=== PATIENT | female | born 1940 | race African-American/Black ===

== ENCOUNTER 2018-04-05 18:16 | Emergency (ER) | payer OTHER ==
--- NOTE | 2018-04-05 18:47 | PDOC ---
Rapid Medical Evaluation Time Seen by Provider: 04/05/18 18:44 Medical Evaluation: Allergies Allergy/AdvReac Type Severity Reaction Status Date / Time No Known Allergies Allergy Verified 04/05/18 18:44 04/05/18 18:45 Pt c/o: sent by diya for elevated K, pt denies discomfort, hx of diabetes, denies kidney disease Pt on brief exam: vss, lcta, no Lower extremity edema pt ordered for: LABS, EKG, UA Pt to proceed to the ED Discharge Disposition - Diagnosis Serum potassium elevated - Referrals Referrals: Huber Anderson MD [Primary Care Provider] - - Patient Instructions - Post Discharge Activity
[2018-04-05 18:48] VITALS: BMI 28.3
[2018-04-05 19:35] LABS: BASO % 1.9 % (0-2.0); EOS % 1.2 % (0-4.5); HEMATOCRIT 32.8 % (32.4-45.2); LYMPH % 11.9 % (8-40); MCH 30.3 pg (25.7-33.7); MCHC 33.5 g/dl (32.0-36.0); MEAN CELL VOLUME 90.5 fl (80-96); MEAN PLT VOLUME 8.8 fl (7.5-11.1); MONO % 11.7 % (3.8-10.2); NEUT % 73.3 % (42.8-82.8); PLATELET COUNT 346 K/MM3 (134-434); RBC 3.63 M/mm3 (3.60-5.2); RDW 18.2 % (11.6-15.6); WHITE BLOOD COUNT 6.1 K/mm3 (4.0-10.0)
[2018-04-05 20:05] LABS: URINE APPEARANCE CLEAR; URINE BILIRUBIN NEGATIVE (<2.0 mg/dL); URINE COLOR STRAW; URINE GLUCOSE (UA) NEGATIVE (NEGATIVE); URINE KETONE NEGATIVE (NEGATIVE); URINE LEUK ESTERASE NEGATIVE (NEGATIVE); URINE NITRITE NEGATIVE (NEGATIVE); URINE PROTEIN NEGATIVE (NEGATIVE); URINE UROBILINOGEN NEGATIVE mg/dL (0.2-1.0)
[2018-04-05 20:31] LABS: PLATELET ESTIMATE ADEQUATE
[2018-04-05] MEDS ORDERED: ACETAMINOPHEN 325 MG TABLET (FP) PO ONE (20:33)
--- NOTE | 2018-04-05 20:33 | PDOC ---
History of Present Illness - General Chief Complaint: Pain Stated Complaint: SENT BY PCP Time Seen by Provider: 04/05/18 18:44 History Source: Patient - History of Present Illness Initial Comments: 04/05/18 21:50 78 year old female Sent by Dr. Keane for elevated potassium levels in the office. Patient reports that she has no symptoms including chest pain, palpitations, muscle pain, cramps, headache, dizziness, weakness, nausea, vomiting, diarrhea, abdominal pain, fevers chills.. Patient reports left knee pain she said it's related to her arthritis. Past History - Past Medical History Allergies/Adverse Reactions: Allergies Allergy/AdvReac Type Severity Reaction Status Date / Time No Known Allergies Allergy Verified 04/05/18 18:44 Home Medications: Ambulatory Orders Ibuprofen 400 mg PO QID #30 tablet 01/05/13 Ascorbic Acid [Vitamin C -] 500 mg PO DAILY 07/18/13 Fluticasone Propionate [Flovent Diskus] 50 mcg IH DAILY PRN 07/18/13 Amlodipine Besylate [Norvasc -] 5 mg PO DAILY #0 tablet 07/19/13 Calcitrol 0.25 mcg PO DAILY #1 07/19/13 Ferrous Sulfate [Feosol] 325 mg PO BID #0 ud 07/19/13 Glipizide 5 mg PO ASDIR #0 tablet 07/19/13 Losartan Potassium [Cozaar] 100 mg PO DAILY #0 tablet 07/19/13 Oxycodone HCl/Acetaminophen [Percocet 5-325 mg Tablet -] 1 tab PO Q4H PRN #20 tablet 07/19/13 Simvastatin [Zocor -] 40 mg PO HS #0 tablet 07/19/13 metFORMIN HCL [Glucophage -] 500 mg PO TID #0 tablet 07/19/13 Anemia: Yes COPD: No Diabetes: Yes HTN: Yes Hypercholesterolemia: Yes - Surgical History Abdominal Surgery: Yes - Immunization History Immunization Up to Date: Yes - Suicide/Smoking/Psychosocial Hx Smoking Status: No Smoking History: Never smoked Number of Cigarettes Smoked Daily: 0 Hx Alcohol Use: No Drug/Substance Use Hx: No Substance Use Type: None Review of Systems - Review of Systems Able to Perform ROS?: Yes Is the patient limited Surinamese proficient: No *Physical Exam - Vital Signs Last Vital Signs Temp Pulse Resp BP Pulse Ox 98.2 F 85 18 165/68 97 04/05/18 18:44 04/05/18 18:44 04/05/18 18:44 04/05/18 18:44 04/05/18 18:44 - Physical Exam General Appearance: Yes: Appropriately Dressed Respiratory/Chest: positive: Lungs Clear, Normal Breath Sounds Cardiovascular: positive: Regular Rhythm, Regular Rate Gastrointestinal/Abdominal: positive: Normal Bowel Sounds, Soft. negative: Tender Extremity: positive: Normal Capillary Refill, Normal Inspection, Normal Range of Motion Integumentary: positive: Normal Color, Dry, Warm Neurologic: positive: Fully Oriented, Alert, Normal Mood/Affect, Normal Response ED Treatment Course - LABORATORY CBC & Chemistry Diagram: 04/05/18 19:28 04/05/18 21:27 - ADDITIONAL ORDERS Additional order review: Laboratory Results 04/05/18 04/05/18 19:55 19:28 Sodium Cancelled Potassium Cancelled Chloride Cancelled Carbon Dioxide Cancelled Anion Gap Cancelled BUN Cancelled Creatinine Cancelled Creat Clearance w eGFR Cancelled Random Glucose Cancelled Calcium Cancelled Total Bilirubin Cancelled AST Cancelled ALT Cancelled Alkaline Phosphatase Cancelled Creatine Kinase Cancelled Creatine Kinase Index Cancelled CK-MB (CK-2) Cancelled Troponin I Cancelled Total Protein Cancelled Albumin Cancelled Urine Color Straw Urine Appearance Clear Urine pH 6.0 Ur Specific [place] 1.005 L Urine Protein Negative Urine Glucose (UA) Negative Urine Ketones Negative Urine Blood Negative Urine Nitrite Negative Urine Bilirubin Negative Urine Urobilinogen Negative Ur Leukocyte Esterase Negative 04/05/18 19:28 RBC 3.63 MCV 90.5 MCHC 33.5 RDW 18.2 H MPV 8.8 Neutrophils % 73.3 Lymphocytes % 11.9 Monocytes % 11.7 H Eosinophils % 1.2 Basophils % 1.9 Medical Decision Making - Medical Decision Making a: hyperkalemia? P: cbc cmp lipase cardiac EKG patient has no complaints. will discuss with Dr. keane prior to disposition. 04/05/18 22:[address] Keane by Dr. Pablo huerta. lipase elevated. patient is asymptomatic. patient to follow up with pcp for repeat levels and workup prn. *DC/Admit/Observation/Transfer Diagnosis at time of Disposition: Elevated lipase - Discharge Dispostion Disposition: HOME - Referrals Referrals: Huber Keane MD [Primary Care Provider] - Call tomorrow - Patient Instructions Printed Discharge Instructions: Potassium Additional Instructions: please follow up with Dr. keane for your elevated Lipase level. you kidney test slightly elevated, it also needs follow up Additional Instructions: * Please call your personal physician to report your Emergency Department visit and to report your progress, if any. * If there is no improvement in symptoms in 2 days call your physician. * Return to the Emergency Department for any worsening symptoms. - Post Discharge Activity
[2018-04-05] MEDS ORDERED: ACETAMINOPHEN 325 MG TABLET (FP) ONE (21:13)
[2018-04-05 22:16] LABS: ALBUMIN 3.6 g/dl (3.4-5.0); ALK PHOS 138 U/L (45-117); ANION GAP 6 MMOL/L (8-16); BILIRUBIN,TOTAL 0.6 mg/dL (0.2-1); BLOOD UREA NITROGEN 33 mg/dL (7-18); CALCIUM 9.8 mg/dL (8.5-10.1); CHLORIDE 107 mmol/L (98-107); CO2 29 mmol/L (21-32); CREATININE 1.9 mg/dL (0.55-1.3); GLUCOSE,RANDOM 104 mg/dL (74-106); LIPASE 1088 U/L (73-393); POTASSIUM 4.8 mmol/L (3.5-5.1); SGOT/AST 22 U/L (15-37); SGPT/ALT 32 U/L (13-61); SODIUM 141 mmol/L (136-145); TOT PROT 7.2 g/dl (6.4-8.2)
[2018-04-05 22:42] VITALS: BP 140/57; PULSE 78; TEMP 99.3
--- NOTE | 2018-04-06 12:33 | EKG ---
Test Reason : Blood Pressure : / mmHG Vent. Rate : 080 BPM Atrial Rate : 080 BPM P-R Int : 182 ms QRS Dur : 068 ms QT Int : 372 ms P-R-T Axes : 047 -04 045 degrees QTc Int : 429 ms NORMAL SINUS RHYTHM CANNOT RULE OUT ANTERIOR INFARCT , AGE UNDETERMINED ABNORMAL ECG Confirmed by MD MINI, CAROLINA ([id number]) on 04/06/2018 12:33:14 PM Referred By: Confirmed By:CAROLINA MORSE MD
== END 2018-04-05 23:11 | disposition home or self-care (01) ==
LOC: JER 18:16
DX: R74.8 Abnormal levels of other serum enzymes (principal); E87.5 Hyperkalemia; I10 Essential (primary) hypertension; E78.00 Pure hypercholesterolemia, unspecified; E11.9 Type 2 diabetes mellitus without complications; Z79.84 Long term (current) use of oral hypoglycemic drugs; D64.9 Anemia, unspecified
CPT/HCPCS: 36415; 80053; 81003; 82550; 83690; 84484; 85025; 93005; 93010; 99283-25

== ENCOUNTER 2020-09-11 14:42 | Emergency (ER) | payer MEDICARE, OTHER ==
[2020-09-11 14:56] VITALS: TEMP 98.5; BMI 25.0
[2020-09-11] MEDS ORDERED: SODIUM CHLORIDE 0.9% 500 ML INFUS.BAG IV ONE (15:47)
[2020-09-11 16:05] LABS: BASO % 1.4 % (0-2.0); EOS % 0.8 % (0-4.5); HEMATOCRIT 31.4 % (32.4-45.2); MCH 29.4 pg (25.7-33.7); MCHC 31.9 g/dl (32.0-36.0); MEAN CELL VOLUME 92.2 fl (80-96); MEAN PLT VOLUME 8.9 fl (7.5-11.1); MONO % 9.2 % (3.8-10.2); NEUT % 76.6 % (42.8-82.8); PLATELET COUNT 394 K/MM3 (134-434); RDW 17.6 % (11.6-15.6); WHITE BLOOD COUNT 6.6 K/mm3 (4.0-10.0)
[2020-09-11 16:07] LABS: VENOUS BASE EXCESS -1.3 mmol/L (-2-2); VENOUS O2 SATURATION 74.7 % (70-80); VENOUS PCO2 49.6 mmHg (38-52); VENOUS PH 7.322 (7.310-7.410)
[2020-09-11 16:25] LABS: ALBUMIN 3.5 g/dl (3.4-5.0); CALCIUM 10.4 mg/dL (8.5-10.1)
[2020-09-11 16:26] LABS: BLOOD UREA NITROGEN 34.6 mg/dL (7-18)
[2020-09-11 16:29] LABS: CREATININE 1.9 mg/dL (0.55-1.3)
[2020-09-11 16:30] LABS: BILIRUBIN,TOTAL 0.7 mg/dL (0.2-1)
[2020-09-11 17:08] LABS: EPI CELLS 7 /uL (0-25.1); HYALINE CASTS 1 /uL (0-3.1); URINE APPEARANCE CLEAR; URINE BACTERIA 84 /uL (0-1359); URINE BILIRUBIN NEGATIVE (NEGATIVE); URINE COLOR YELLOW; URINE GLUCOSE (UA) 3+ (NEGATIVE); URINE KETONE NEGATIVE (NEGATIVE); URINE LEUK ESTERASE 1+ (NEGATIVE); URINE NITRITE NEGATIVE (NEGATIVE); URINE PROTEIN NEGATIVE (NEGATIVE); URINE RBC 5 /uL (0-23.9); URINE UROBILINOGEN 0.2 mg/dL (0.2-1.0); URINE WBC 32 /uL (0-25.8)
[2020-09-11 19:04] LABS: BLOOD UREA NITROGEN 31.4 mg/dL (7-18); CALCIUM 10.7 mg/dL (8.5-10.1)
[2020-09-11 19:08] LABS: CREATININE 1.7 mg/dL (0.55-1.3)
[2020-09-11 19:43] VITALS: BP 122/68; PULSE 86
== END 2020-09-11 19:40 | disposition home or self-care (01) ==
LOC: JER 14:42
DX: R73.9 Hyperglycemia, unspecified (principal)
CPT/HCPCS: 36415; 71045-TC-FY; 80048; 80053; 81003; 82010; 82803; 82962; 85025; 87077; 87086; 93005; 93010; 99285-25

== ENCOUNTER 2020-10-19 04:34 | Day surgery (SDC) | payer MEDICARE, OTHER ==
[2020-10-18 11:24] VITALS: BMI 23.3
[2020-10-19] MEDS ORDERED: LIDOCAINE 1% P/F 10 MG/ML VIAL INF ONE (15:58)
[2020-10-19 17:21] VITALS: BP 137/64; PULSE 77; TEMP 98.6
== END 2020-10-19 18:10 | disposition home or self-care (01) ==
LOC: JASU-SURG 04:34
PROVIDERS: ATTEND Pain Medicine Pain Medicine
PROC: 01HY3MZ Insertion of Neurostimulator Lead into Peripheral Nerve, Percutaneous Approach (ICD-10-PCS; principal; 2020-10-19 16:00)
DX: G89.4 Chronic pain syndrome (principal)
CPT/HCPCS: 64555; C1778

== ENCOUNTER 2021-03-28 18:48 | Inpatient (IN) | payer MEDICARE, OTHER ==
[2021-03-28 21:26] LABS: BASO % 1.4 % (0-2.0); EOS % 0.1 % (0-4.5); HEMATOCRIT 24.9 % (32.4-45.2); HEMOGLOBIN 7.9 GM/dL (10.7-15.3); LYMPH % 8.9 % (8-40); MCH 29.6 pg (25.7-33.7); MCHC 31.9 g/dl (32.0-36.0); MEAN CELL VOLUME 92.7 fl (80-96); MEAN PLT VOLUME 7.2 fl (7.5-11.1); MONO % 14.6 % (3.8-10.2); PLATELET COUNT 475 10^3/uL (134-434); RBC 2.68 M/mm3 (3.60-5.2); RDW 16.5 % (11.6-15.6); RETICULOCYTES 1.14 % (0.5-1.5); WHITE BLOOD COUNT 9.6 K/mm3 (4.0-10.0)
[2021-03-28 21:33] LABS: INR 1.12 (0.83-1.09); PROTHROMBIN TIME (PATIENT) 13.1 SEC (9.7-13.0)
[2021-03-28 21:36] LABS: ACTIVATED PTT 27.7 SECONDS (25.2-36.5)
[2021-03-28 21:50] LABS: CHLORIDE 110 mmol/L (98-107); SODIUM 141 mmol/L (136-145)
[2021-03-28 21:52] LABS: CALCIUM 10.4 mg/dL (8.5-10.1)
[2021-03-28 21:53] LABS: ALBUMIN 3.1 g/dl (3.4-5.0); ANION GAP 7 MMOL/L (8-16); BLOOD UREA NITROGEN 47.2 mg/dL (7-18); CO2 24 mmol/L (21-32); GLUCOSE,RANDOM 201 mg/dL (74-106); MAGNESIUM 2.3 mg/dL (1.8-2.4)
[2021-03-28 21:55] LABS: CREATININE 1.8 mg/dL (0.55-1.3)
[2021-03-28 21:56] LABS: PHOSPHOROUS 3.3 mg/dL (2.5-4.9); SGOT/AST 16 U/L (15-37); SGPT/ALT 17 U/L (13-61); TOTAL IRON BINDING CAPACITY 242 ug/dL (250-450)
[2021-03-28 21:57] LABS: BILIRUBIN,TOTAL 0.4 mg/dL (0.2-1)
[2021-03-28 21:58] LABS: ALK PHOS 107 U/L (45-117); LDH 238 U/L (84-246)
[2021-03-28] MEDS ORDERED: ACETAMINOPHEN 1000 MG/100 ML VIAL IVPB ONE (22:19)
[2021-03-28] MEDS ORDERED: ACETAMINOPHEN INJECTION 100 ML IVPB ONE (23:00)
[2021-03-28] MEDS ORDERED: SODIUM ZIRCONIUM CYCLOSILICATE (LOKELMA) 5 GM PACKET ONE (23:00)
[2021-03-28] MEDS ORDERED: SODIUM ZIRCONIUM CYCLOSILICATE (LOKELMA) 5 GM PACKET PO ONE (23:00)
[2021-03-28 23:18] LABS: EPI CELLS 9 /uL (0-25.1); HYALINE CASTS 0 /uL (0-3.1); URINE APPEARANCE CLEAR; URINE BACTERIA 13 /uL (0-1359); URINE BILIRUBIN NEGATIVE (NEGATIVE); URINE COLOR YELLOW; URINE GLUCOSE (UA) NEGATIVE (NEGATIVE); URINE KETONE NEGATIVE (NEGATIVE); URINE LEUK ESTERASE TRACE (NEGATIVE); URINE NITRITE NEGATIVE (NEGATIVE); URINE PROTEIN TRACE (NEGATIVE); URINE RBC 9 /uL (0-23.9); URINE UROBILINOGEN 0.2 mg/dL (0.2-1.0); URINE WBC 24 /uL (0-25.8)
[2021-03-29] MEDS ORDERED: FUROSEMIDE 40 MG/4 ML INJECTABLE VIAL IVPUSH ONE (02:50)
[2021-03-29] MEDS ORDERED: ACETAMINOPHEN 325 MG TABLET (FP) ONE (02:56)
[2021-03-29] MEDS ORDERED: FUROSEMIDE 40 MG/4 ML INJECTABLE VIAL ONE (02:56)
[2021-03-29] MEDS: ACETAMINOPHEN 325 MG TABLET (FP) PO PRN ×2 (03:12→11:32)
[2021-03-29] MEDS ORDERED: METHOCARBAMOL 500 MG TABLET PO ONE (03:23)
[2021-03-29] MEDS: INSULIN (NOVOLOG) ASPART 100 UNITS/ML 10ML VIAL SQ SCH ×4 (06:05→21:25)
[2021-03-29 09:53] LABS: BASO % 1.3 % (0-2.0); EOS % 0.8 % (0-4.5); HEMATOCRIT 26.5 % (32.4-45.2); HEMOGLOBIN 8.6 GM/dL (10.7-15.3); LYMPH % 11.3 % (8-40); MCH 30.7 pg (25.7-33.7); MCHC 32.5 g/dl (32.0-36.0); MEAN CELL VOLUME 94.4 fl (80-96); MEAN PLT VOLUME 7.8 fl (7.5-11.1); MONO % 14.9 % (3.8-10.2); NEUT % 71.7 % (42.8-82.8); PLATELET COUNT 495 10^3/uL (134-434); RBC 2.81 M/mm3 (3.60-5.2); RDW 16.5 % (11.6-15.6); WHITE BLOOD COUNT 8.5 K/mm3 (4.0-10.0)
[2021-03-29 10:17] LABS: CALCIUM 10.6 mg/dL (8.5-10.1)
[2021-03-29 10:18] LABS: CHOLESTEROL 215 mg/dL (50-200)
[2021-03-29 10:19] LABS: CREATININE 1.9 mg/dL (0.55-1.3); LDL CHOLESTEROL (ONLY SJRH) 121 mg/dL (5-100); PHOSPHOROUS 4.2 mg/dL (2.5-4.9); TRIGLYCERIDES 129 mg/dL (0-150)
[2021-03-29 10:20] LABS: ALBUMIN 2.9 g/dl (3.4-5.0); BLOOD UREA NITROGEN 44.7 mg/dL (7-18); HDL CHOLESTEROL 57 mg/dL (40-60); MAGNESIUM 2.3 mg/dL (1.8-2.4)
[2021-03-29 10:21] LABS: BILIRUBIN,TOTAL 0.5 mg/dL (0.2-1); TOT PROT 6.9 g/dl (6.4-8.2)
[2021-03-29 10:22] LABS: URIC ACID 8.1 mg/dL (2.6-7.2)
[2021-03-29 10:23] LABS: INR 1.14 (0.83-1.09); PROTHROMBIN TIME (PATIENT) 12.8 SEC (9.7-13.0)
[2021-03-29] MEDS: metoPROLOL SUCCINATE 25 MG TAB.SR.24H (FP) PO SCH (11:32)
[2021-03-29] MEDS: LOSARTAN POTASSIUM 50 MG TABLET PO SCH (11:33)
[2021-03-29] MEDS: LIDOCAINE 5% TOPICAL PATCH TP SCH (11:34)
[2021-03-29] MEDS: SODIUM ZIRCONIUM CYCLOSILICATE (LOKELMA) 5 GM PACKET PO SCH (11:34)
[2021-03-29] MEDS ORDERED: SODIUM CHLORIDE 0.45% 1,000 ML IV SCH (14:15)
[2021-03-29] MEDS ORDERED: ACETAMINOPHEN 1000 MG/100 ML VIAL IVPB PRN (16:18)
[2021-03-29] MEDS: morphine SULFATE 4 MG/ML VIAL IVPB PRN (18:58)
[2021-03-29] MEDS: HEPARIN NA (PORCINE) 5,000 UNITS/ML 1ML VIAL SQ SCH (21:24)
[2021-03-29] MEDS: ATORVASTATIN CA 20 MG TABLET (FP) PO SCH (21:25)
[2021-03-29] MEDS ORDERED: LIDOCAINE PATCH REMOVAL MC SCH (22:00)
[2021-03-29] MEDS: INSULIN (LEVEMIR) 100 UNITS/ML UNITS SQ SCH (22:05)
[2021-03-29] MEDS ORDERED: SODIUM ZIRCONIUM CYCLOSILICATE (LOKELMA) 5 GM PACKET PO ONE (22:14)
[2021-03-30] MEDS: ACETAMINOPHEN 325 MG TABLET (FP) PO PRN ×2 (03:50→22:39)
[2021-03-30] MEDS: INSULIN (NOVOLOG) ASPART 100 UNITS/ML 10ML VIAL SQ SCH ×4 (06:17→22:40)
[2021-03-30] MEDS: HEPARIN NA (PORCINE) 5,000 UNITS/ML 1ML VIAL SQ SCH ×3 (06:20→22:40)
[2021-03-30] MEDS: LIDOCAINE 5% TOPICAL PATCH TP SCH (09:19)
[2021-03-30] MEDS: metoPROLOL SUCCINATE 25 MG TAB.SR.24H (FP) PO SCH (09:19)
[2021-03-30] MEDS: SODIUM ZIRCONIUM CYCLOSILICATE (LOKELMA) 5 GM PACKET PO SCH (09:19)
[2021-03-30] MEDS: LOSARTAN POTASSIUM 50 MG TABLET PO SCH (09:19)
[2021-03-30 10:52] LABS: BASO % 0.7 % (0-2.0); EOS % 0.2 % (0-4.5); LYMPH % 5.9 % (8-40); MCH 29.8 pg (25.7-33.7); MEAN CELL VOLUME 92.9 fl (80-96); NEUT % 77.2 % (42.8-82.8); PLATELET COUNT 509 10^3/uL (134-434); RBC 2.69 M/mm3 (3.60-5.2); RDW 16.1 % (11.6-15.6); WHITE BLOOD COUNT 11.3 K/mm3 (4.0-10.0)
[2021-03-30 11:15] LABS: CALCIUM 10.2 mg/dL (8.5-10.1)
[2021-03-30 11:16] LABS: ALBUMIN 2.6 g/dl (3.4-5.0)
[2021-03-30 11:19] LABS: CREATININE 1.7 mg/dL (0.55-1.3)
[2021-03-30 11:20] LABS: BILIRUBIN,TOTAL 0.6 mg/dL (0.2-1)
[2021-03-30 11:21] LABS: TOT PROT 6.3 g/dl (6.4-8.2)
[2021-03-30] MEDS ORDERED: LIDOCAINE 5% TOPICAL PATCH TP ONE (12:15)
[2021-03-30] MEDS: SODIUM CHLORIDE 0.45% 1,000 ML IV SCH (18:11)
[2021-03-30] MEDS: ATORVASTATIN CA 20 MG TABLET (FP) PO SCH (22:39)
[2021-03-30] MEDS: LIDOCAINE PATCH REMOVAL MC SCH (22:41)
[2021-03-30] MEDS: INSULIN (LEVEMIR) 100 UNITS/ML UNITS SQ SCH (22:41)
[2021-03-31] MEDS: SODIUM CHLORIDE 0.45% 1,000 ML IV SCH ×4 (02:45→23:34)
[2021-03-31] MEDS: INSULIN (NOVOLOG) ASPART 100 UNITS/ML 10ML VIAL SQ SCH ×4 (06:31→21:34)
[2021-03-31] MEDS: HEPARIN NA (PORCINE) 5,000 UNITS/ML 1ML VIAL SQ SCH ×3 (06:31→21:26)
[2021-03-31] MEDS: ACETAMINOPHEN 325 MG TABLET (FP) PO PRN ×2 (06:36→17:00)
[2021-03-31] MEDS: LOSARTAN POTASSIUM 50 MG TABLET PO SCH (09:37)
[2021-03-31] MEDS: metoPROLOL SUCCINATE 25 MG TAB.SR.24H (FP) PO SCH (09:37)
[2021-03-31] MEDS: LIDOCAINE 5% TOPICAL PATCH TP SCH (09:37)
[2021-03-31] MEDS: SODIUM ZIRCONIUM CYCLOSILICATE (LOKELMA) 5 GM PACKET PO SCH (09:37)
[2021-03-31] MEDS: morphine SULFATE 4 MG/ML VIAL IVPB PRN (09:40)
[2021-03-31 09:45] LABS: BASO % 0.7 % (0-2.0); EOS % 0.1 % (0-4.5); HEMATOCRIT 24.9 % (32.4-45.2); HEMOGLOBIN 8.2 GM/dL (10.7-15.3); LYMPH % 7.4 % (8-40); MCH 30.5 pg (25.7-33.7); MCHC 32.8 g/dl (32.0-36.0); MEAN PLT VOLUME 7.8 fl (7.5-11.1); MONO % 17.2 % (3.8-10.2); NEUT % 74.6 % (42.8-82.8); PLATELET COUNT 513 10^3/uL (134-434); RBC 2.68 M/mm3 (3.60-5.2); RDW 16.2 % (11.6-15.6); WHITE BLOOD COUNT 10.9 K/mm3 (4.0-10.0)
[2021-03-31 10:21] LABS: CALCIUM 9.7 mg/dL (8.5-10.1)
[2021-03-31 10:22] LABS: ALBUMIN 2.2 g/dl (3.4-5.0); BLOOD UREA NITROGEN 32.8 mg/dL (7-18)
[2021-03-31 10:24] LABS: CREATININE 1.6 mg/dL (0.55-1.3)
[2021-03-31 10:26] LABS: BILIRUBIN,TOTAL 0.7 mg/dL (0.2-1)
[2021-03-31] MEDS: ATORVASTATIN CA 20 MG TABLET (FP) PO SCH (21:26)
[2021-03-31] MEDS: INSULIN (LEVEMIR) 100 UNITS/ML UNITS SQ SCH (21:28)
[2021-03-31] MEDS: LIDOCAINE PATCH REMOVAL MC SCH (22:27)
[2021-04-01] MEDS: ACETAMINOPHEN 325 MG TABLET (FP) PO PRN (03:04)
[2021-04-01 04:44] LABS: URINE APPEARANCE CLEAR; URINE BILIRUBIN NEGATIVE (NEGATIVE); URINE COLOR YELLOW; URINE GLUCOSE (UA) NEGATIVE (NEGATIVE); URINE KETONE NEGATIVE (NEGATIVE); URINE LEUK ESTERASE NEGATIVE (NEGATIVE); URINE NITRITE NEGATIVE (NEGATIVE); URINE PROTEIN NEGATIVE (NEGATIVE); URINE UROBILINOGEN 0.2 mg/dL (0.2-1.0)
[2021-04-01] MEDS: HEPARIN NA (PORCINE) 5,000 UNITS/ML 1ML VIAL SQ SCH ×3 (06:26→22:20)
[2021-04-01] MEDS: INSULIN (NOVOLOG) ASPART 100 UNITS/ML 10ML VIAL SQ SCH ×4 (06:26→22:22)
[2021-04-01 09:02] LABS: BASO % 0.8 % (0-2.0); EOS % 0.4 % (0-4.5); HEMATOCRIT 23.3 % (32.4-45.2); HEMOGLOBIN 7.4 GM/dL (10.7-15.3); LYMPH % 7.8 % (8-40); MCH 30.1 pg (25.7-33.7); MCHC 31.9 g/dl (32.0-36.0); MEAN CELL VOLUME 94.3 fl (80-96); MEAN PLT VOLUME 8.2 fl (7.5-11.1); MONO % 17.6 % (3.8-10.2); NEUT % 73.4 % (42.8-82.8); PLATELET COUNT 437 10^3/uL (134-434); RBC 2.47 M/mm3 (3.60-5.2); RDW 16.6 % (11.6-15.6); WHITE BLOOD COUNT 9.4 K/mm3 (4.0-10.0)
[2021-04-01 09:14] LABS: BLOOD UREA NITROGEN 31.9 mg/dL (7-18)
[2021-04-01 09:15] LABS: CALCIUM 9.6 mg/dL (8.5-10.1)
[2021-04-01 09:17] LABS: ALBUMIN 1.9 g/dl (3.4-5.0); MAGNESIUM 2.1 mg/dL (1.8-2.4)
[2021-04-01 09:20] LABS: BILIRUBIN,TOTAL 0.5 mg/dL (0.2-1); CREATININE 1.6 mg/dL (0.55-1.3); TOT PROT 5.5 g/dl (6.4-8.2)
[2021-04-01] MEDS ORDERED: DEXTROSE 5%-WATER - 50 ML IVPB ONE (10:34)
[2021-04-01] MEDS ORDERED: cefTRIAXone SODIUM 1 GM VIAL ONE (10:34)
[2021-04-01] MEDS: metoPROLOL SUCCINATE 25 MG TAB.SR.24H (FP) PO SCH (10:36)
[2021-04-01] MEDS: LOSARTAN POTASSIUM 50 MG TABLET PO SCH (10:36)
[2021-04-01] MEDS: CEFTRIAXONE 1 GM in DEXTROSE 5%-WATER - 50 ML IVPB SCH (10:37)
[2021-04-01] MEDS: LIDOCAINE 5% TOPICAL PATCH TP SCH (10:37)
[2021-04-01] MEDS: morphine SULFATE 4 MG/ML VIAL IVPB PRN (14:53)
[2021-04-01] MEDS: INSULIN (LEVEMIR) 100 UNITS/ML UNITS SQ SCH (22:19)
[2021-04-01] MEDS: ATORVASTATIN CA 20 MG TABLET (FP) PO SCH (22:19)
[2021-04-01] MEDS: SODIUM CHLORIDE 0.45% 1,000 ML IV SCH (22:19)
[2021-04-01] MEDS: LIDOCAINE PATCH REMOVAL MC SCH (22:20)
[2021-04-02] MEDS: SODIUM CHLORIDE 0.45% 1,000 ML IV SCH ×2 (03:24→18:09)
[2021-04-02] MEDS: HEPARIN NA (PORCINE) 5,000 UNITS/ML 1ML VIAL SQ SCH ×3 (06:44→21:06)
[2021-04-02] MEDS: INSULIN (NOVOLOG) ASPART 100 UNITS/ML 10ML VIAL SQ SCH ×4 (06:46→21:05)
[2021-04-02 08:52] LABS: BASO % 0.9 % (0-2.0); EOS % 0.8 % (0-4.5); HEMATOCRIT 25.5 % (32.4-45.2); HEMOGLOBIN 8.1 GM/dL (10.7-15.3); LYMPH % 7.7 % (8-40); MCH 30.1 pg (25.7-33.7); MCHC 31.9 g/dl (32.0-36.0); MEAN CELL VOLUME 94.3 fl (80-96); MEAN PLT VOLUME 8.4 fl (7.5-11.1); MONO % 14.6 % (3.8-10.2); PLATELET COUNT 506 10^3/uL (134-434); RDW 16.4 % (11.6-15.6); WHITE BLOOD COUNT 9.2 K/mm3 (4.0-10.0)
[2021-04-02] MEDS ORDERED: DEXTROSE 5%-WATER - 50 ML IVPB ONE ×3 (09:40→17:13)
[2021-04-02] MEDS ORDERED: cefTRIAXone SODIUM 1 GM VIAL ONE (09:40)
[2021-04-02] MEDS ORDERED: morphine SULFATE 4 MG/ML VIAL IM PRN (11:46)
[2021-04-02] MEDS: metoPROLOL SUCCINATE 25 MG TAB.SR.24H (FP) PO SCH (11:49)
[2021-04-02] MEDS: LIDOCAINE 5% TOPICAL PATCH TP SCH (11:49)
[2021-04-02] MEDS: CEFTRIAXONE 1 GM in DEXTROSE 5%-WATER - 50 ML IVPB SCH (11:50)
[2021-04-02] MEDS ORDERED: CEFEPIME HCL 1 GM VIAL (RESTRICTED TO ID) ONE ×2 (13:15→17:13)
[2021-04-02] MEDS: CEFEPIME 1 GM in DEXTROSE 5%-WATER - 1 GM/50 ML IVPB IVPB SCH ×2 (13:26→18:09)
[2021-04-02 19:02] LABS: BILIRUBIN,TOTAL 0.4 mg/dL (0.2-1); TOT PROT 5.9 g/dl (6.4-8.2)
[2021-04-02] MEDS: INSULIN (LEVEMIR) 100 UNITS/ML UNITS SQ SCH (21:06)
[2021-04-02] MEDS: ACETAMINOPHEN 325 MG TABLET (FP) PO PRN (21:07)
[2021-04-02] MEDS: ATORVASTATIN CA 20 MG TABLET (FP) PO SCH (21:09)
[2021-04-02] MEDS: LIDOCAINE PATCH REMOVAL MC SCH (21:09)
[2021-04-03] MEDS ORDERED: DEXTROSE 5%-WATER - 50 ML IVPB ONE ×3 (01:51→17:00)
[2021-04-03] MEDS ORDERED: CEFEPIME HCL 1 GM VIAL (RESTRICTED TO ID) ONE ×3 (01:51→17:00)
[2021-04-03] MEDS: CEFEPIME 1 GM in DEXTROSE 5%-WATER - 1 GM/50 ML IVPB IVPB SCH ×3 (02:00→17:07)
[2021-04-03] MEDS: HEPARIN NA (PORCINE) 5,000 UNITS/ML 1ML VIAL SQ SCH ×3 (05:41→21:52)
[2021-04-03] MEDS: INSULIN (NOVOLOG) ASPART 100 UNITS/ML 10ML VIAL SQ SCH ×4 (06:13→21:52)
[2021-04-03 09:35] LABS: BASO % 0.8 % (0-2.0); EOS % 0.9 % (0-4.5); HEMOGLOBIN 7.6 GM/dL (10.7-15.3); LYMPH % 6.5 % (8-40); MCH 29.9 pg (25.7-33.7); MCHC 31.7 g/dl (32.0-36.0); MEAN CELL VOLUME 94.5 fl (80-96); MEAN PLT VOLUME 8.6 fl (7.5-11.1); NEUT % 76.8 % (42.8-82.8); PLATELET COUNT 503 10^3/uL (134-434); RBC 2.54 M/mm3 (3.60-5.2); RDW 16.7 % (11.6-15.6)
[2021-04-03] MEDS: LIDOCAINE 5% TOPICAL PATCH TP SCH (10:35)
[2021-04-03] MEDS: metoPROLOL SUCCINATE 25 MG TAB.SR.24H (FP) PO SCH (10:38)
[2021-04-03] MEDS ORDERED: GABAPENTIN 100 MG CAPSULE PO SCH (11:29)
[2021-04-03] MEDS ORDERED: morphine SULFATE 4 MG/ML VIAL IVPB PRN (12:48)
[2021-04-03 12:58] LABS: ALBUMIN 1.9 g/dl (3.4-5.0); BILIRUBIN,TOTAL 0.4 mg/dL (0.2-1); CREATININE 1.4 mg/dL (0.55-1.3); TOT PROT 5.8 g/dl (6.4-8.2)
[2021-04-03] MEDS: ACETAMINOPHEN 325 MG TABLET (FP) PO SCH ×2 (13:28→17:08)
[2021-04-03] MEDS: GABAPENTIN 300 MG CAPSULE PO SCH ×2 (13:28→21:52)
[2021-04-03] MEDS ORDERED: SODIUM CHLORIDE NASAL SPRAY 44 ML BOTTLE NS PRN (16:31)
[2021-04-03] MEDS: FUROSEMIDE 40 MG TABLET (FP) PO SCH (17:08)
[2021-04-03] MEDS ORDERED: metoPROLOL SUCCINATE 25 MG TAB.SR.24H (FP) PO ONE (17:17)
[2021-04-03] MEDS ORDERED: SODIUM ZIRCONIUM CYCLOSILICATE (LOKELMA) 5 GM PACKET PO ONE (21:33)
[2021-04-03] MEDS: LIDOCAINE PATCH REMOVAL MC SCH (21:52)
[2021-04-03] MEDS: INSULIN (LEVEMIR) 100 UNITS/ML UNITS SQ SCH (21:52)
[2021-04-03] MEDS: ATORVASTATIN CA 20 MG TABLET (FP) PO SCH (21:52)
[2021-04-04] MEDS: ACETAMINOPHEN 325 MG TABLET (FP) PO SCH ×4 (00:16→18:03)
[2021-04-04] MEDS ORDERED: CEFEPIME HCL 1 GM VIAL (RESTRICTED TO ID) ONE ×4 (01:34→17:50)
[2021-04-04] MEDS ORDERED: DEXTROSE 5%-WATER - 50 ML IVPB ONE ×4 (01:34→17:50)
[2021-04-04] MEDS: CEFEPIME 1 GM in DEXTROSE 5%-WATER - 1 GM/50 ML IVPB IVPB SCH ×3 (01:45→17:23)
[2021-04-04] MEDS: HEPARIN NA (PORCINE) 5,000 UNITS/ML 1ML VIAL SQ SCH ×3 (06:04→21:22)
[2021-04-04] MEDS: GABAPENTIN 300 MG CAPSULE PO SCH ×3 (06:04→21:22)
[2021-04-04] MEDS: INSULIN (NOVOLOG) ASPART 100 UNITS/ML 10ML VIAL SQ SCH ×4 (06:04→21:23)
[2021-04-04 09:43] LABS: BASO % 0.9 % (0-2.0); EOS % 1.3 % (0-4.5); HEMATOCRIT 21.7 % (32.4-45.2); LYMPH % 9.5 % (8-40); MCH 30.1 pg (25.7-33.7); MCHC 32.4 g/dl (32.0-36.0); MEAN PLT VOLUME 8.2 fl (7.5-11.1); MONO % 18.5 % (3.8-10.2); NEUT % 69.8 % (42.8-82.8); PLATELET COUNT 483 10^3/uL (134-434); RBC 2.34 M/mm3 (3.60-5.2); RDW 16.3 % (11.6-15.6); WHITE BLOOD COUNT 10.4 K/mm3 (4.0-10.0)
[2021-04-04] MEDS ORDERED: traMADol HCL 50 MG TABLET PO PRN ×2 (09:55)
[2021-04-04] MEDS: FUROSEMIDE 40 MG TABLET (FP) PO SCH (10:22)
[2021-04-04] MEDS: metoPROLOL SUCCINATE 25 MG TAB.SR.24H (FP) PO SCH (10:23)
[2021-04-04] MEDS: LIDOCAINE 5% TOPICAL PATCH TP SCH (10:24)
[2021-04-04 10:50] LABS: ALBUMIN 1.7 g/dl (3.4-5.0); BILIRUBIN,TOTAL 0.4 mg/dL (0.2-1); CALCIUM 9.9 mg/dL (8.5-10.1); CREATININE 1.7 mg/dL (0.55-1.3); TOT PROT 5.5 g/dl (6.4-8.2)
[2021-04-04] MEDS ORDERED: POLYETHYLENE GLYCOL (HEALTHYLAX) 3350 17 GM PACKET PO ONE (14:04)
[2021-04-04] MEDS ORDERED: SENNOSIDES 8.6MG TABLET (FP) PO PRN (14:04)
[2021-04-04] MEDS ORDERED: ONDANSETRON 4 MG/2 ML VIAL IVPUSH ONE (15:33)
[2021-04-04] MEDS: DOCUSATE SODIUM 100 MG CAPSULE (FP) PO SCH (21:22)
[2021-04-04] MEDS: ATORVASTATIN CA 20 MG TABLET (FP) PO SCH (21:22)
[2021-04-04] MEDS: INSULIN (LEVEMIR) 100 UNITS/ML UNITS SQ SCH (21:23)
[2021-04-04] MEDS: LIDOCAINE PATCH REMOVAL MC SCH (21:44)
[2021-04-05] MEDS: ACETAMINOPHEN 325 MG TABLET (FP) PO SCH ×4 (00:24→18:19)
[2021-04-05] MEDS ORDERED: DEXTROSE 5%-WATER - 50 ML IVPB ONE ×2 (01:04→16:50)
[2021-04-05] MEDS ORDERED: CEFEPIME HCL 1 GM VIAL (RESTRICTED TO ID) ONE ×2 (01:04→16:50)
[2021-04-05] MEDS: CEFEPIME 1 GM in DEXTROSE 5%-WATER - 1 GM/50 ML IVPB IVPB SCH ×3 (01:19→17:00)
[2021-04-05] MEDS: HEPARIN NA (PORCINE) 5,000 UNITS/ML 1ML VIAL SQ SCH ×3 (06:08→21:29)
[2021-04-05] MEDS: GABAPENTIN 300 MG CAPSULE PO SCH ×3 (06:09→21:29)
[2021-04-05] MEDS: INSULIN (NOVOLOG) ASPART 100 UNITS/ML 10ML VIAL SQ SCH ×4 (06:10→21:32)
[2021-04-05 09:10] LABS: BASO % 0.3 % (0-2.0); HEMATOCRIT 21.4 % (32.4-45.2); LYMPH % 4.2 % (8-40); MCHC 31.2 g/dl (32.0-36.0); MEAN PLT VOLUME 7.9 fl (7.5-11.1); MONO % 9.3 % (3.8-10.2); NEUT % 86.2 % (42.8-82.8); PLATELET COUNT 477 10^3/uL (134-434); RDW 16.7 % (11.6-15.6); WHITE BLOOD COUNT 11.7 K/mm3 (4.0-10.0)
[2021-04-05 09:16] LABS: HEMOGLOBIN 6.7 GM/dL (10.7-15.3)
[2021-04-05] MEDS ORDERED: BISACODYL 10 MG SUPP.RECT PR ONE (10:14)
[2021-04-05] MEDS ORDERED: ONDANSETRON 4 MG/2 ML VIAL IVPUSH PRN (10:19)
[2021-04-05] MEDS: POLYETHYLENE GLYCOL (HEALTHYLAX) 3350 17 GM PACKET PO SCH (10:30)
[2021-04-05] MEDS: PANTOPRAZOLE 40 MG TABLET PO SCH (10:31)
[2021-04-05] MEDS: LIDOCAINE 5% TOPICAL PATCH TP SCH (10:31)
[2021-04-05] MEDS: metoPROLOL SUCCINATE 25 MG TAB.SR.24H (FP) PO SCH (10:31)
[2021-04-05] MEDS: FUROSEMIDE 40 MG TABLET (FP) PO SCH (10:31)
[2021-04-05 12:15] LABS: ALBUMIN 1.7 g/dl (3.4-5.0); BILIRUBIN,TOTAL 0.2 mg/dL (0.2-1); CALCIUM 9.9 mg/dL (8.5-10.1); CREATININE 2.1 mg/dL (0.55-1.3); MAGNESIUM 2.3 mg/dL (1.8-2.4); TOT PROT 5.6 g/dl (6.4-8.2)
[2021-04-05 13:01] VITALS: BMI 22.1
[2021-04-05 20:08] LABS: BLOOD UREA NITROGEN 30.1 mg/dL (7-18); CALCIUM 9.8 mg/dL (8.5-10.1); CREATININE 1.5 mg/dL (0.55-1.3); MAGNESIUM 1.9 mg/dL (1.8-2.4)
[2021-04-05] MEDS: DOCUSATE SODIUM 100 MG CAPSULE (FP) PO SCH (21:28)
[2021-04-05] MEDS: INSULIN (LEVEMIR) 100 UNITS/ML UNITS SQ SCH (21:29)
[2021-04-05] MEDS: ATORVASTATIN CA 20 MG TABLET (FP) PO SCH (21:29)
[2021-04-05] MEDS: LIDOCAINE PATCH REMOVAL MC SCH (21:42)
[2021-04-06] MEDS ORDERED: CEFEPIME HCL 1 GM VIAL (RESTRICTED TO ID) ONE ×3 (01:20→17:50)
[2021-04-06] MEDS ORDERED: DEXTROSE 5%-WATER - 50 ML IVPB ONE ×3 (01:21→17:51)
[2021-04-06] MEDS: CEFEPIME 1 GM in DEXTROSE 5%-WATER - 1 GM/50 ML IVPB IVPB SCH ×3 (01:34→18:24)
[2021-04-06] MEDS: ACETAMINOPHEN 325 MG TABLET (FP) PO SCH ×5 (01:34→23:39)
[2021-04-06] MEDS: HEPARIN NA (PORCINE) 5,000 UNITS/ML 1ML VIAL SQ SCH ×4 (06:04→22:18)
[2021-04-06] MEDS: GABAPENTIN 300 MG CAPSULE PO SCH ×4 (06:05→22:18)
[2021-04-06] MEDS: INSULIN (NOVOLOG) ASPART 100 UNITS/ML 10ML VIAL SQ SCH ×4 (06:06→21:26)
[2021-04-06 08:47] LABS: BASO % 0.4 % (0-2.0); EOS % 1.2 % (0-4.5); HEMOGLOBIN 9.2 GM/dL (10.7-15.3); LYMPH % 5.8 % (8-40); MCH 29.6 pg (25.7-33.7); MCHC 31.6 g/dl (32.0-36.0); MEAN CELL VOLUME 93.8 fl (80-96); MEAN PLT VOLUME 7.7 fl (7.5-11.1); MONO % 7.9 % (3.8-10.2); NEUT % 84.7 % (42.8-82.8); PLATELET COUNT 549 10^3/uL (134-434); RBC 3.09 M/mm3 (3.60-5.2); RDW 16.1 % (11.6-15.6); WHITE BLOOD COUNT 14.1 K/mm3 (4.0-10.0)
[2021-04-06 09:12] LABS: CALCIUM 10.3 mg/dL (8.5-10.1)
[2021-04-06 09:13] LABS: ALBUMIN 1.9 g/dl (3.4-5.0); BLOOD UREA NITROGEN 55.4 mg/dL (7-18); MAGNESIUM 2.1 mg/dL (1.8-2.4)
[2021-04-06 09:16] LABS: CREATININE 2.1 mg/dL (0.55-1.3)
[2021-04-06 09:17] LABS: TOT PROT 6.2 g/dl (6.4-8.2)
[2021-04-06 09:18] LABS: BILIRUBIN,TOTAL 0.3 mg/dL (0.2-1)
[2021-04-06] MEDS ORDERED: EPOETIN ALFA-EPBX 40,000 UNIT/ML VIAL SQ ONE (10:00)
[2021-04-06] MEDS: metoPROLOL SUCCINATE 25 MG TAB.SR.24H (FP) PO SCH (10:30)
[2021-04-06] MEDS: FUROSEMIDE 40 MG TABLET (FP) PO SCH (10:30)
[2021-04-06] MEDS: POLYETHYLENE GLYCOL (HEALTHYLAX) 3350 17 GM PACKET PO SCH (10:30)
[2021-04-06] MEDS: PANTOPRAZOLE 40 MG TABLET PO SCH (10:30)
[2021-04-06] MEDS: LIDOCAINE 5% TOPICAL PATCH TP SCH (10:31)
[2021-04-06] MEDS: SODIUM CHLORIDE 1,000 ML IV SCH (11:05)
[2021-04-06] MEDS: LIDOCAINE PATCH REMOVAL MC SCH (21:26)
[2021-04-06] MEDS: ATORVASTATIN CA 20 MG TABLET (FP) PO SCH (21:26)
[2021-04-06] MEDS: INSULIN (LEVEMIR) 100 UNITS/ML UNITS SQ SCH (21:26)
[2021-04-06] MEDS: DOCUSATE SODIUM 100 MG CAPSULE (FP) PO SCH ×2 (21:26→22:18)
[2021-04-07] MEDS ORDERED: DEXTROSE 5%-WATER - 50 ML IVPB ONE ×3 (01:30→17:47)
[2021-04-07] MEDS ORDERED: CEFEPIME HCL 1 GM VIAL (RESTRICTED TO ID) ONE ×3 (01:30→17:47)
[2021-04-07] MEDS: CEFEPIME 1 GM in DEXTROSE 5%-WATER - 1 GM/50 ML IVPB IVPB SCH ×3 (01:39→18:08)
[2021-04-07] MEDS: SODIUM CHLORIDE 1,000 ML IV SCH ×3 (03:22→18:10)
[2021-04-07] MEDS: ACETAMINOPHEN 325 MG TABLET (FP) PO SCH ×3 (06:00→18:05)
[2021-04-07] MEDS: GABAPENTIN 300 MG CAPSULE PO SCH ×3 (06:00→22:19)
[2021-04-07] MEDS: HEPARIN NA (PORCINE) 5,000 UNITS/ML 1ML VIAL SQ SCH ×3 (06:00→22:19)
[2021-04-07] MEDS: INSULIN (NOVOLOG) ASPART 100 UNITS/ML 10ML VIAL SQ SCH ×4 (06:14→22:20)
[2021-04-07 09:23] LABS: BLOOD UREA NITROGEN 48.4 mg/dL (7-18)
[2021-04-07 09:26] LABS: CREATININE 1.7 mg/dL (0.55-1.3)
[2021-04-07 09:39] LABS: CALCIUM 8.4 mg/dL (8.5-10.1)
[2021-04-07] MEDS: POLYETHYLENE GLYCOL (HEALTHYLAX) 3350 17 GM PACKET PO SCH (10:33)
[2021-04-07] MEDS: PANTOPRAZOLE 40 MG TABLET PO SCH (10:33)
[2021-04-07] MEDS: metoPROLOL SUCCINATE 25 MG TAB.SR.24H (FP) PO SCH (10:33)
[2021-04-07] MEDS: LIDOCAINE 5% TOPICAL PATCH TP SCH (10:33)
[2021-04-07 11:07] LABS: HEMATOCRIT 24.6 % (32.4-45.2); HEMOGLOBIN 7.8 GM/dL (10.7-15.3); MCH 29.4 pg (25.7-33.7); MCHC 31.6 g/dl (32.0-36.0); MEAN CELL VOLUME 93.2 fl (80-96); PLATELET COUNT 467 10^3/uL (134-434); RBC 2.64 M/mm3 (3.60-5.2); RDW 16.3 % (11.6-15.6)
[2021-04-07 11:38] LABS: MAGNESIUM 1.8 mg/dL (1.8-2.4)
[2021-04-07 11:42] LABS: BILIRUBIN,TOTAL 0.2 mg/dL (0.2-1); TOT PROT 4.8 g/dl (6.4-8.2)
[2021-04-07 11:43] LABS: ALBUMIN 1.4 g/dl (3.4-5.0)
[2021-04-07 12:27] LABS: ANISOCYTOSIS 1+; MACROCYTOSIS 0; PLATELET ESTIMATE NORMAL
[2021-04-07] MEDS: DOCUSATE SODIUM 100 MG CAPSULE (FP) PO SCH (22:19)
[2021-04-07] MEDS: ATORVASTATIN CA 20 MG TABLET (FP) PO SCH (22:19)
[2021-04-07] MEDS: INSULIN (LEVEMIR) 100 UNITS/ML UNITS SQ SCH (22:20)
[2021-04-07] MEDS: LIDOCAINE PATCH REMOVAL MC SCH (22:20)
[2021-04-08] MEDS: ACETAMINOPHEN 325 MG TABLET (FP) PO SCH ×4 (00:50→17:48)
[2021-04-08] MEDS ORDERED: DEXTROSE 5%-WATER - 50 ML IVPB ONE ×2 (01:27→09:23)
[2021-04-08] MEDS ORDERED: CEFEPIME HCL 1 GM VIAL (RESTRICTED TO ID) ONE ×2 (01:27→09:22)
[2021-04-08] MEDS: CEFEPIME 1 GM in DEXTROSE 5%-WATER - 1 GM/50 ML IVPB IVPB SCH ×2 (01:37→10:06)
[2021-04-08] MEDS: HEPARIN NA (PORCINE) 5,000 UNITS/ML 1ML VIAL SQ SCH ×3 (06:10→21:20)
[2021-04-08] MEDS: INSULIN (NOVOLOG) ASPART 100 UNITS/ML 10ML VIAL SQ SCH ×3 (06:11→17:58)
[2021-04-08] MEDS: GABAPENTIN 300 MG CAPSULE PO SCH ×3 (06:11→21:19)
[2021-04-08] MEDS: LIDOCAINE 5% TOPICAL PATCH TP SCH (10:05)
[2021-04-08] MEDS: PANTOPRAZOLE 40 MG TABLET PO SCH (10:08)
[2021-04-08] MEDS: metoPROLOL SUCCINATE 25 MG TAB.SR.24H (FP) PO SCH (10:08)
[2021-04-08 12:39] LABS: HEMATOCRIT 30.1 % (32.4-45.2); HEMOGLOBIN 9.4 GM/dL (10.7-15.3); MCH 29.9 pg (25.7-33.7); MCHC 31.1 g/dl (32.0-36.0); MEAN PLT VOLUME 8.6 fl (7.5-11.1); PLATELET COUNT 583 10^3/uL (134-434); RBC 3.14 M/mm3 (3.60-5.2); RDW 16.7 % (11.6-15.6); WHITE BLOOD COUNT 16.1 K/mm3 (4.0-10.0)
[2021-04-08] MEDS ORDERED: LORazepam 0.5 MG TABLET PO PRN (12:40)
[2021-04-08 13:02] LABS: CALCIUM 9.6 mg/dL (8.5-10.1)
[2021-04-08 13:03] LABS: BLOOD UREA NITROGEN 51.6 mg/dL (7-18); MAGNESIUM 2.1 mg/dL (1.8-2.4)
[2021-04-08 13:05] LABS: CREATININE 2.1 mg/dL (0.55-1.3)
[2021-04-08 13:06] LABS: BILIRUBIN,TOTAL 0.2 mg/dL (0.2-1); TOT PROT 5.8 g/dl (6.4-8.2)
[2021-04-08 13:10] LABS: ALBUMIN 1.8 g/dl (3.4-5.0)
[2021-04-08 14:23] LABS: ANISOCYTOSIS 1+; MACROCYTOSIS 1+; PLATELET ESTIMATE NORMAL; TARGET CELLS 1+
[2021-04-08] MEDS: SODIUM CHLORIDE 1,000 ML IV SCH (14:28)
[2021-04-08] MEDS: METHYL SALICYLATE/MENTHOL OINT 30 GM TUBE TP SCH ×2 (15:00→21:22)
[2021-04-08] MEDS ORDERED: INSULIN (LEVEMIR) 100 UNITS/ML UNITS SQ SCH (17:40)
[2021-04-08] MEDS ORDERED: INSULIN (NOVOLOG) ASPART 100 UNITS/ML 10ML VIAL SQ SCH (17:41)
[2021-04-08] MEDS: POLYETHYLENE GLYCOL (HEALTHYLAX) 3350 17 GM PACKET PO SCH (17:47)
[2021-04-08] MEDS: SODIUM ZIRCONIUM CYCLOSILICATE (LOKELMA) 5 GM PACKET PO SCH (17:54)
[2021-04-08] MEDS: DOCUSATE SODIUM 100 MG CAPSULE (FP) PO SCH (21:18)
[2021-04-08] MEDS: ATORVASTATIN CA 20 MG TABLET (FP) PO SCH (21:19)
[2021-04-08] MEDS: LIDOCAINE PATCH REMOVAL MC SCH (21:19)
[2021-04-08] MEDS: INSULIN SLIDING SCALE (NOVOLOG) 1 VIAL SQ SCH (21:28)
[2021-04-09] MEDS: ACETAMINOPHEN 325 MG TABLET (FP) PO SCH ×3 (01:02→14:24)
[2021-04-09] MEDS: SODIUM CHLORIDE 1,000 ML IV SCH ×2 (01:33→11:13)
[2021-04-09] MEDS: GABAPENTIN 300 MG CAPSULE PO SCH ×2 (06:10→14:26)
[2021-04-09] MEDS: HEPARIN NA (PORCINE) 5,000 UNITS/ML 1ML VIAL SQ SCH ×2 (06:11→14:26)
[2021-04-09] MEDS: INSULIN SLIDING SCALE (NOVOLOG) 1 VIAL SQ SCH ×2 (06:12→11:45)
[2021-04-09] MEDS: LIDOCAINE 5% TOPICAL PATCH TP SCH (09:23)
[2021-04-09] MEDS: METHYL SALICYLATE/MENTHOL OINT 30 GM TUBE TP SCH (09:24)
[2021-04-09] MEDS: POLYETHYLENE GLYCOL (HEALTHYLAX) 3350 17 GM PACKET PO SCH (10:12)
[2021-04-09] MEDS: metoPROLOL SUCCINATE 25 MG TAB.SR.24H (FP) PO SCH (10:16)
[2021-04-09] MEDS: PANTOPRAZOLE 40 MG TABLET PO SCH (10:18)
[2021-04-09 11:52] VITALS: BP 141/72; PULSE 80; TEMP 98.7
[2021-04-09] MEDS: SODIUM ZIRCONIUM CYCLOSILICATE (LOKELMA) 5 GM PACKET PO SCH (12:11)
[2021-04-09 13:08] LABS: HEMATOCRIT 30.2 % (32.4-45.2); HEMOGLOBIN 9.4 GM/dL (10.7-15.3); MCH 29.4 pg (25.7-33.7); MCHC 31.2 g/dl (32.0-36.0); MEAN CELL VOLUME 94.5 fl (80-96); MEAN PLT VOLUME 7.2 fl (7.5-11.1); PLATELET COUNT 554 10^3/uL (134-434); RDW 16.6 % (11.6-15.6); WHITE BLOOD COUNT 14.3 K/mm3 (4.0-10.0)
[2021-04-09 13:33] LABS: CALCIUM 9.6 mg/dL (8.5-10.1)
[2021-04-09 13:34] LABS: ALBUMIN 1.9 g/dl (3.4-5.0); BLOOD UREA NITROGEN 48.3 mg/dL (7-18); MAGNESIUM 2.1 mg/dL (1.8-2.4)
[2021-04-09 13:37] LABS: CREATININE 1.6 mg/dL (0.55-1.3)
[2021-04-09 13:38] LABS: BILIRUBIN,TOTAL 0.3 mg/dL (0.2-1); TOT PROT 5.8 g/dl (6.4-8.2)
[2021-04-09 14:03] LABS: ANISOCYTOSIS 1+; MACROCYTOSIS 1+; PLATELET ESTIMATE INCREASED
[2021-04-09] MEDS ORDERED: POLYETHYLENE GLYCOL (HEALTHYLAX) 3350 17 GM PACKET PO SCH (22:00)
== END 2021-04-09 16:29 | disposition home health service (06) | DRG 181 ==
LOC: JER 18:48 → JERBED 03-29 00:29 → UNDOADMOB 03-29 00:29 → INTOOBSV 03-29 00:29 → J5S 03-29 03:23 → JERBED 03-29 03:23 → J5S 03-29 08:21 → OBSVTOIN 04-01 09:35
PROVIDERS: ADMIT Internal Medicine; ATTEND Nurse Practitioner Acute Care
PROC: 30233N1 Transfusion of Nonautologous Red Blood Cells into Peripheral Vein, Percutaneous Approach (ICD-10-PCS; principal; 2021-04-05)
DX: D49.1 Neoplasm of unspecified behavior of respiratory system (principal); R65.10 Systemic inflammatory response syndrome (SIRS) of non-infectious origin without acute organ dysfunction; N17.9 Acute kidney failure, unspecified; R91.8 Other nonspecific abnormal finding of lung field; D64.9 Anemia, unspecified; M47.22 Other spondylosis with radiculopathy, cervical region; R50.9 Fever, unspecified; N18.9 Chronic kidney disease, unspecified; E11.9 Type 2 diabetes mellitus without complications; I13.10 Hypertensive heart and chronic kidney disease without heart failure, with stage 1 through stage 4 chronic kidney disease, or unspecified chronic kidney disease; E87.5 Hyperkalemia; E83.52 Hypercalcemia; N28.89 Other specified disorders of kidney and ureter; D46.9 Myelodysplastic syndrome, unspecified; E86.0 Dehydration; E78.5 Hyperlipidemia, unspecified
CPT/HCPCS: 36415; 36430; 70450-TC; 71045-TC-FY; 71046-TC-FY; 72125-TC; 72192-TC; 73700-TC-RT; 74018-TC-FY; 80048; 80053; 80061; 81003; 82272; 82310; 82550; 82728; 82962; 83036; 83540; 83550; 83615; 83735; 83970; 84100; 84443; 84484; 84550; 85025; 85045; 85610; 85651; 85730; 86038; 86140; 86431; 86850; 86900; 86901; 86922; 87040; 87086; 93005; 93010; 93306-TC; 97116-GP; 97161-GP; 99285-25; C9803; G0378; J0131; J1644; P9058; Q5106; U0003; U0005

== ENCOUNTER 2021-09-24 06:21 | Day surgery (SDC) | payer MEDICARE, OTHER ==
[2021-09-24] MEDS ORDERED: IRON SUCROSE INJECTION 100 MG in SODIUM CHLORIDE 100 ML IVPB ONE (10:00)
[2021-09-24 13:03] LABS: BASO % 0.5 % (0-2.0); EOS % 0.4 % (0-4.5); HEMATOCRIT 21.1 % (32.4-45.2); LYMPH % 10.2 % (8-40); MCH 27.6 pg (25.7-33.7); MCHC 32.1 g/dl (32.0-36.0); MEAN CELL VOLUME 86.1 fl (80-96); MEAN PLT VOLUME 6.9 fl (7.5-11.1); MONO % 8.9 % (3.8-10.2); PLATELET COUNT 511 10^3/uL (134-434); RBC 2.45 M/mm3 (3.60-5.2); RDW 22.8 % (11.6-15.6); WHITE BLOOD COUNT 9.6 K/mm3 (4.0-10.0)
[2021-09-24 13:11] LABS: HEMOGLOBIN 6.8 GM/dL (10.7-15.3)
[2021-09-24 14:52] LABS: ANISOCYTOSIS 3+; TARGET CELLS 1+
[2021-09-24 17:38] VITALS: BP 147/63; PULSE 90; TEMP 99
== END 2021-09-24 14:20 | disposition home or self-care (01) ==
LOC: JONCNONCHE 06:21
PROVIDERS: ATTEND Internal Medicine Hematology & Oncology
PROC: 3E033GC Introduction of Other Therapeutic Substance into Peripheral Vein, Percutaneous Approach (ICD-10-PCS; principal; 2021-09-24)
DX: D50.9 Iron deficiency anemia, unspecified (principal)
CPT/HCPCS: 36415; 36430; 85025; 86850; 86900; 86901; 86922; 96365; J1756; P9058

== ENCOUNTER → 2021-09-26 | Day surgery (SDC) | payer MEDICARE, OTHER ==
[~2021-09-26] MED LIST: FUROSEMIDE 40 MG TABLET (FP) PO ONE
[2021-09-26 10:18] LABS: ALBUMIN 2.7 g/dl (3.4-5.0); CALCIUM 10.3 mg/dL (8.5-10.1)
[2021-09-26 10:19] LABS: BLOOD UREA NITROGEN 55.8 mg/dL (7-18); MAGNESIUM 2.5 mg/dL (1.8-2.4)
[2021-09-26 10:21] LABS: CREATININE 1.6 mg/dL (0.55-1.3)
[2021-09-26 10:23] LABS: TOT PROT 7.2 g/dl (6.4-8.2)
[2021-09-26 10:24] LABS: BILIRUBIN,TOTAL 0.4 mg/dL (0.2-1)
[2021-09-26 16:59] VITALS: BP 116/60; PULSE 88; TEMP 98.7
[2021-09-26 20:03] LABS: BASO % 1.2 % (0-2.0); EOS % 1.2 % (0-4.5); HEMATOCRIT 31.6 % (32.4-45.2); HEMOGLOBIN 10.4 GM/dL (10.7-15.3); LYMPH % 14.4 % (8-40); MCHC 32.8 g/dl (32.0-36.0); MEAN CELL VOLUME 85.5 fl (80-96); MEAN PLT VOLUME 7.2 fl (7.5-11.1); MONO % 11.8 % (3.8-10.2); NEUT % 71.4 % (42.8-82.8); PLATELET COUNT 538 10^3/uL (134-434); RDW 18.4 % (11.6-15.6); WHITE BLOOD COUNT 10.7 K/mm3 (4.0-10.0)
== END | disposition home or self-care (01) ==
LOC: JONCBLOOD 07:07
PROVIDERS: ATTEND Internal Medicine Hematology & Oncology
PROC: 30233H1 Transfusion of Nonautologous Whole Blood into Peripheral Vein, Percutaneous Approach (ICD-10-PCS; principal; 2021-09-26)
DX: D46.4 Refractory anemia, unspecified (principal); D46.9 Myelodysplastic syndrome, unspecified; E11.9 Type 2 diabetes mellitus without complications; I10 Essential (primary) hypertension
CPT/HCPCS: 36415; 36430; 80053; 83735; 85025; 86850; 86900; 86901; 86922; P9058

== ENCOUNTER 2021-10-01 07:44 | Day surgery (SDC) | payer MEDICARE, OTHER ==
[2021-10-01] MEDS ORDERED: IRON SUCROSE INJECTION 100 MG in SODIUM CHLORIDE 100 ML IVPB ONE (10:00)
[2021-10-01 13:46] LABS: BASO % 0.8 % (0-2.0); EOS % 0.4 % (0-4.5); HEMATOCRIT 30.5 % (32.4-45.2); HEMOGLOBIN 10.1 GM/dL (10.7-15.3); LYMPH % 10.7 % (8-40); MCH 28.6 pg (25.7-33.7); MCHC 33.1 g/dl (32.0-36.0); MEAN CELL VOLUME 86.4 fl (80-96); MEAN PLT VOLUME 7.3 fl (7.5-11.1); MONO % 12.4 % (3.8-10.2); NEUT % 75.7 % (42.8-82.8); PLATELET COUNT 446 10^3/uL (134-434); RBC 3.53 M/mm3 (3.60-5.2); RDW 18.5 % (11.6-15.6); WHITE BLOOD COUNT 10.2 K/mm3 (4.0-10.0)
[2021-10-01 17:47] VITALS: TEMP 97.8
[2021-10-01 18:45] VITALS: BP 148/70; PULSE 88
== END 2021-10-01 14:00 | disposition home or self-care (01) ==
LOC: JONCCHEMO 07:44
PROVIDERS: ATTEND Internal Medicine Hematology & Oncology
PROC: 3E033GC Introduction of Other Therapeutic Substance into Peripheral Vein, Percutaneous Approach (ICD-10-PCS; principal; 2021-10-01)
DX: D50.9 Iron deficiency anemia, unspecified (principal)
CPT/HCPCS: 36415; 85025; 96365; J1756

== ENCOUNTER 2021-10-09 06:37 | Day surgery (SDC) | payer MEDICARE, OTHER ==
[2021-10-09] MEDS ORDERED: IRON SUCROSE INJECTION 100 MG in SODIUM CHLORIDE 100 ML IVPB ONE (10:00)
[2021-10-09 12:50] LABS: BASO % 1.4 % (0-2.0); HEMATOCRIT 27.6 % (32.4-45.2); LYMPH % 10.5 % (8-40); MCH 28.4 pg (25.7-33.7); MCHC 32.8 g/dl (32.0-36.0); MEAN CELL VOLUME 86.6 fl (80-96); MEAN PLT VOLUME 7.5 fl (7.5-11.1); MONO % 11.1 % (3.8-10.2); PLATELET COUNT 486 10^3/uL (134-434); RBC 3.18 M/mm3 (3.60-5.2); RDW 18.5 % (11.6-15.6); WHITE BLOOD COUNT 9.3 K/mm3 (4.0-10.0)
[2021-10-09 13:07] LABS: MAGNESIUM 2.2 mg/dL (1.8-2.4)
[2021-10-09 13:08] LABS: ALBUMIN 2.4 g/dl (3.4-5.0); BLOOD UREA NITROGEN 61.7 mg/dL (7-18)
[2021-10-09 13:09] LABS: URIC ACID 7.1 mg/dL (2.6-7.2)
[2021-10-09 13:10] LABS: CREATININE 1.5 mg/dL (0.55-1.3)
[2021-10-09 13:11] LABS: BILIRUBIN,DIRECT 0.1 mg/dL (0.0-0.2)
[2021-10-09 13:12] LABS: TOT PROT 6.3 g/dl (6.4-8.2)
[2021-10-09 13:13] LABS: BILIRUBIN,TOTAL 0.3 mg/dL (0.2-1)
[2021-10-09 16:37] VITALS: TEMP 99
[2021-10-09 16:39] VITALS: BP 135/69; PULSE 74
== END 2021-10-09 13:30 | disposition home or self-care (01) ==
LOC: JONCCHEMO 06:37
PROVIDERS: ATTEND Internal Medicine Hematology & Oncology
PROC: 3E033GC Introduction of Other Therapeutic Substance into Peripheral Vein, Percutaneous Approach (ICD-10-PCS; principal; 2021-10-09)
DX: D50.9 Iron deficiency anemia, unspecified (principal)
CPT/HCPCS: 36415; 80053; 80076; 83615; 83735; 84550; 85025; 96365; J1756

== ENCOUNTER 2021-10-15 06:53 | Day surgery (SDC) | payer MEDICARE, OTHER ==
[2021-10-15] MEDS ORDERED: IRON SUCROSE INJECTION 100 MG in SODIUM CHLORIDE 100 ML IVPB ONE (10:00)
[2021-10-15 13:47] LABS: BASO % 1.1 % (0-2.0); EOS % 1.3 % (0-4.5); HEMATOCRIT 28.2 % (32.4-45.2); MCH 27.7 pg (25.7-33.7); MCHC 31.9 g/dl (32.0-36.0); MEAN CELL VOLUME 86.8 fl (80-96); MEAN PLT VOLUME 7.5 fl (7.5-11.1); MONO % 10.9 % (3.8-10.2); NEUT % 73.7 % (42.8-82.8); PLATELET COUNT 490 10^3/uL (134-434); RBC 3.24 M/mm3 (3.60-5.2); WHITE BLOOD COUNT 8.6 K/mm3 (4.0-10.0)
[2021-10-15 18:08] VITALS: TEMP 98.1
[2021-10-15 18:09] VITALS: BP 131/91; PULSE 83
== END 2021-10-15 14:25 | disposition home or self-care (01) ==
LOC: JONCNONCHE 06:53
PROVIDERS: ATTEND Internal Medicine Hematology & Oncology
PROC: 3E033GC Introduction of Other Therapeutic Substance into Peripheral Vein, Percutaneous Approach (ICD-10-PCS; principal; 2021-10-15)
DX: D50.9 Iron deficiency anemia, unspecified (principal); D46.9 Myelodysplastic syndrome, unspecified
CPT/HCPCS: 36415; 85025; 96365; J1756

== ENCOUNTER 2021-10-23 10:07 | Day surgery (SDC) | payer MEDICARE, OTHER ==
[2021-10-21 15:53] VITALS: BMI 25.0
[2021-10-23] MEDS ORDERED: PROPOFOL 20 ML ONE ×2 (10:34)
[2021-10-23 11:46] VITALS: TEMP 97.7
[2021-10-23 12:57] VITALS: BP 132/63; PULSE 81
== END 2021-10-23 12:40 | disposition home or self-care (01) ==
LOC: FASU-ENDO 10:07
PROVIDERS: ATTEND Internal Medicine Gastroenterology
PROC: 0DB68ZZ Excision of Stomach, Via Natural or Artificial Opening Endoscopic (ICD-10-PCS; 2021-10-23)
PROC: 0DB48ZX Excision of Esophagogastric Junction, Via Natural or Artificial Opening Endoscopic, Diagnostic (ICD-10-PCS; 2021-10-23)
PROC: 0DB98ZZ Excision of Duodenum, Via Natural or Artificial Opening Endoscopic (ICD-10-PCS; principal; 2021-10-23 11:15)
DX: D50.9 Iron deficiency anemia, unspecified (principal); K29.50 Unspecified chronic gastritis without bleeding; K20.90 Esophagitis, unspecified without bleeding
CPT/HCPCS: 82962; 88305-TC; 88342-TC

== ENCOUNTER 2021-11-15 12:32 | Inpatient (IN) | payer MEDICARE, OTHER ==
[2021-11-15 12:48] VITALS: BMI 25.7
[2021-11-15 14:47] LABS: BASO % 0.8 % (0-2.0); HEMATOCRIT 25.8 % (32.4-45.2); HEMOGLOBIN 8.4 GM/dL (10.7-15.3); LYMPH % 13.5 % (8-40); MCH 28.7 pg (25.7-33.7); MCHC 32.4 g/dl (32.0-36.0); MEAN CELL VOLUME 88.6 fl (80-96); MEAN PLT VOLUME 7.4 fl (7.5-11.1); MONO % 8.7 % (3.8-10.2); PLATELET COUNT 384 10^3/uL (134-434); RBC 2.91 M/mm3 (3.60-5.2); RDW 20.3 % (11.6-15.6); WHITE BLOOD COUNT 7.4 K/mm3 (4.0-10.0)
[2021-11-15 14:49] LABS: EPI CELLS >36 /uL (0-25.1); HYALINE CASTS 1 /uL (0-3.1); URINE APPEARANCE CLEAR; URINE BACTERIA 95 /uL (0-1359); URINE BILIRUBIN NEGATIVE (NEGATIVE); URINE COLOR YELLOW; URINE GLUCOSE (UA) NEGATIVE (NEGATIVE); URINE KETONE NEGATIVE (NEGATIVE); URINE LEUK ESTERASE 1+ (NEGATIVE); URINE NITRITE NEGATIVE (NEGATIVE); URINE PROTEIN NEGATIVE (NEGATIVE); URINE RBC 6 /uL (0-23.9); URINE UROBILINOGEN 0.2 mg/dL (0.2-1.0); URINE WBC 50 /uL (0-25.8)
[2021-11-15 14:51] LABS: ACTIVATED PTT 28.6 SECONDS (25.2-36.5); ALBUMIN 2.9 g/dl (3.4-5.0); BLOOD UREA NITROGEN 55.3 mg/dL (7-18); CALCIUM 10.2 mg/dL (8.5-10.1); INR 0.97 (0.83-1.09); MAGNESIUM 2.7 mg/dL (1.8-2.4); PROTHROMBIN TIME (PATIENT) 11.1 SEC (9.7-13.0)
[2021-11-15 14:54] LABS: CREATININE 1.5 mg/dL (0.55-1.3)
[2021-11-15 14:56] LABS: BILIRUBIN,TOTAL 0.2 mg/dL (0.2-1); TOT PROT 6.5 g/dl (6.4-8.2)
[2021-11-15 15:00] LABS: N-TERMINAL BNP 321.1 pg/ml (5-450)
[2021-11-15] MEDS ORDERED: CALCIUM CITRATE PO SCH (22:00)
[2021-11-15] MEDS ORDERED: VITAMIN D3 PO SCH (22:00)
[2021-11-15] MEDS ORDERED: [UNRECOGNIZED DRUG - OTHER] PO SCH (22:00)
[2021-11-15] MEDS ORDERED: ATORVASTATIN CA 20 MG TABLET (FP) ONE (22:52)
[2021-11-15] MEDS ORDERED: INSULIN (NOVOLOG) ASPART 100 UNITS/ML 10ML VIAL ONE (22:53)
[2021-11-15] MEDS: INSULIN SLIDING SCALE (NOVOLOG) 1 VIAL SQ SCH (23:00)
[2021-11-15] MEDS: ATORVASTATIN CA 20 MG TABLET (FP) PO SCH (23:00)
[2021-11-16] MEDS: INSULIN SLIDING SCALE (NOVOLOG) 1 VIAL SQ SCH ×4 (06:41→21:59)
[2021-11-16 10:12] LABS: EOS % 1.9 % (0-4.5); HEMATOCRIT 24.9 % (32.4-45.2); HEMOGLOBIN 8.1 GM/dL (10.7-15.3); LYMPH % 18.2 % (8-40); MCH 29.2 pg (25.7-33.7); MCHC 32.5 g/dl (32.0-36.0); MEAN CELL VOLUME 89.9 fl (80-96); MEAN PLT VOLUME 7.3 fl (7.5-11.1); MONO % 9.5 % (3.8-10.2); NEUT % 68.4 % (42.8-82.8); PLATELET COUNT 349 10^3/uL (134-434); RBC 2.77 M/mm3 (3.60-5.2); RDW 20.3 % (11.6-15.6); WHITE BLOOD COUNT 5.8 K/mm3 (4.0-10.0)
[2021-11-16 10:28] LABS: ALBUMIN 2.6 g/dl (3.4-5.0); BLOOD UREA NITROGEN 49.1 mg/dL (7-18)
[2021-11-16 10:31] LABS: CREATININE 1.4 mg/dL (0.55-1.3)
[2021-11-16 10:33] LABS: BILIRUBIN,TOTAL 0.7 mg/dL (0.2-1); TOT PROT 6.1 g/dl (6.4-8.2)
[2021-11-16] MEDS: ASCORBIC ACID 500 MG TABLET (FP) PO SCH (11:37)
[2021-11-16] MEDS: ALLOPURINOL 100 MG TABLET (FP) PO SCH (11:37)
[2021-11-16] MEDS: ESCITALOPRAM OXALATE 10 MG TABLET PO SCH (11:37)
[2021-11-16] MEDS: SODIUM ZIRCONIUM CYCLOSILICATE (LOKELMA) 5 GM PACKET PO SCH (13:16)
[2021-11-16] MEDS: PANTOPRAZOLE 40 MG TABLET PO SCH (15:41)
[2021-11-16] MEDS ORDERED: amLODIPine BESYLATE 5 MG TABLET (FP) PO ONE (19:04)
[2021-11-16] MEDS: ATORVASTATIN CA 20 MG TABLET (FP) PO SCH (21:59)
[2021-11-17] MEDS: INSULIN SLIDING SCALE (NOVOLOG) 1 VIAL SQ SCH ×4 (06:35→21:45)
[2021-11-17 09:46] LABS: BASO % 1.1 % (0-2.0); EOS % 1.4 % (0-4.5); HEMATOCRIT 25.7 % (32.4-45.2); HEMOGLOBIN 8.4 GM/dL (10.7-15.3); LYMPH % 12.9 % (8-40); MCH 29.3 pg (25.7-33.7); MCHC 32.7 g/dl (32.0-36.0); MEAN CELL VOLUME 89.6 fl (80-96); MEAN PLT VOLUME 7.2 fl (7.5-11.1); MONO % 8.5 % (3.8-10.2); NEUT % 76.1 % (42.8-82.8); PLATELET COUNT 364 10^3/uL (134-434); RBC 2.87 M/mm3 (3.60-5.2); RDW 19.9 % (11.6-15.6)
[2021-11-17 09:57] LABS: INR 1.01 (0.83-1.09); PROTHROMBIN TIME (PATIENT) 11.6 SEC (9.7-13.0)
[2021-11-17 10:09] LABS: ALBUMIN 2.7 g/dl (3.4-5.0); BLOOD UREA NITROGEN 37.9 mg/dL (7-18); CALCIUM 10.1 mg/dL (8.5-10.1); MAGNESIUM 2.1 mg/dL (1.8-2.4)
[2021-11-17 10:12] LABS: CREATININE 1.3 mg/dL (0.55-1.3)
[2021-11-17 10:14] LABS: BILIRUBIN,TOTAL 0.6 mg/dL (0.2-1); TOT PROT 6.3 g/dl (6.4-8.2)
[2021-11-17] MEDS: ASCORBIC ACID 500 MG TABLET (FP) PO SCH (10:19)
[2021-11-17] MEDS: PANTOPRAZOLE 40 MG TABLET PO SCH (10:19)
[2021-11-17] MEDS: ESCITALOPRAM OXALATE 10 MG TABLET PO SCH (10:19)
[2021-11-17] MEDS: BENZOCAINE/MENTHOL (CHLORASEPTIC ) LOZENGE MM PRN ×2 (10:25→19:40)
[2021-11-17] MEDS: SODIUM ZIRCONIUM CYCLOSILICATE (LOKELMA) 5 GM PACKET PO SCH (12:42)
[2021-11-17] MEDS: ACETAMINOPHEN 325 MG TABLET (FP) PO PRN (14:05)
[2021-11-17] MEDS: DOCUSATE SODIUM 100 MG CAPSULE (FP) PO SCH ×2 (14:06→21:41)
[2021-11-17] MEDS: POLYETHYLENE GLYCOL (HEALTHYLAX) 3350 17 GM PACKET PO SCH (14:07)
[2021-11-17] MEDS: ATORVASTATIN CA 20 MG TABLET (FP) PO SCH (21:42)
[2021-11-17] MEDS: GABAPENTIN 300 MG CAPSULE PO SCH (21:42)
[2021-11-18] MEDS: DOCUSATE SODIUM 100 MG CAPSULE (FP) PO SCH (06:02)
[2021-11-18] MEDS: GABAPENTIN 300 MG CAPSULE PO SCH ×3 (06:02→21:26)
[2021-11-18] MEDS: BENZOCAINE/MENTHOL (CHLORASEPTIC ) LOZENGE MM PRN (06:06)
[2021-11-18] MEDS: INSULIN SLIDING SCALE (NOVOLOG) 1 VIAL SQ SCH ×4 (06:08→21:26)
[2021-11-18] MEDS ORDERED: METOPROLOL TARTRATE 25 MG TABLET (FP) PO SCH (10:00)
[2021-11-18] MEDS: ESCITALOPRAM OXALATE 10 MG TABLET PO SCH (10:08)
[2021-11-18] MEDS: POLYETHYLENE GLYCOL (HEALTHYLAX) 3350 17 GM PACKET PO SCH (10:08)
[2021-11-18] MEDS: PANTOPRAZOLE 40 MG TABLET PO SCH (10:10)
[2021-11-18] MEDS: ASCORBIC ACID 500 MG TABLET (FP) PO SCH (10:10)
[2021-11-18] MEDS: FUROSEMIDE 20 MG TABLET (FP) PO SCH (10:10)
[2021-11-18] MEDS: metoPROLOL SUCCINATE 25 MG TAB.SR.24H (FP) PO SCH (10:10)
[2021-11-18 11:35] LABS: BASO % 2.3 % (0-2.0); HEMATOCRIT 25.6 % (32.4-45.2); HEMOGLOBIN 8.3 GM/dL (10.7-15.3); MCH 29.5 pg (25.7-33.7); MCHC 32.5 g/dl (32.0-36.0); MEAN CELL VOLUME 90.7 fl (80-96); MEAN PLT VOLUME 7.3 fl (7.5-11.1); MONO % 9.1 % (3.8-10.2); NEUT % 69.6 % (42.8-82.8); PLATELET COUNT 369 10^3/uL (134-434); RBC 2.83 M/mm3 (3.60-5.2); WHITE BLOOD COUNT 6.2 K/mm3 (4.0-10.0)
[2021-11-18 11:40] LABS: INR 1.07 (0.83-1.09); PROTHROMBIN TIME (PATIENT) 12.3 SEC (9.7-13.0)
[2021-11-18 12:23] LABS: ANISOCYTOSIS 2+; MACROCYTOSIS 0
[2021-11-18] MEDS: SODIUM ZIRCONIUM CYCLOSILICATE (LOKELMA) 5 GM PACKET PO SCH (12:23)
[2021-11-18 12:31] LABS: CREATININE 1.5 mg/dL (0.55-1.3)
[2021-11-18 12:33] LABS: MAGNESIUM 2.1 mg/dL (1.8-2.4)
[2021-11-18 12:35] LABS: BLOOD UREA NITROGEN 34.1 mg/dL (7-18)
[2021-11-18 12:36] LABS: CALCIUM 9.8 mg/dL (8.5-10.1)
[2021-11-18 12:37] LABS: ALBUMIN 2.8 g/dl (3.4-5.0)
[2021-11-18 12:39] LABS: BILIRUBIN,TOTAL 0.6 mg/dL (0.2-1); TOT PROT 6.3 g/dl (6.4-8.2)
[2021-11-18] MEDS: ACETAMINOPHEN 325 MG TABLET (FP) PO PRN (15:47)
[2021-11-18] MEDS ORDERED: BISACODYL 5 MG TABLET.DR (FP) PO ONE (16:00)
[2021-11-18] MEDS ORDERED: PEG 3350/NA SULF BICARB CL/KCL 4000 ML SOLN.RECON PO ONE (17:00)
[2021-11-18] MEDS: ATORVASTATIN CA 20 MG TABLET (FP) PO SCH (21:26)
[2021-11-19] MEDS: INSULIN SLIDING SCALE (NOVOLOG) 1 VIAL SQ SCH ×4 (06:03→21:33)
[2021-11-19] MEDS: GABAPENTIN 300 MG CAPSULE PO SCH ×3 (06:03→21:32)
[2021-11-19 11:00] LABS: EOS % 2.1 % (0-4.5); HEMATOCRIT 27.6 % (32.4-45.2); HEMOGLOBIN 8.8 GM/dL (10.7-15.3); LYMPH % 14.3 % (8-40); MCH 28.9 pg (25.7-33.7); MEAN CELL VOLUME 90.4 fl (80-96); MEAN PLT VOLUME 7.3 fl (7.5-11.1); MONO % 10.4 % (3.8-10.2); NEUT % 71.2 % (42.8-82.8); PLATELET COUNT 388 10^3/uL (134-434); RBC 3.05 M/mm3 (3.60-5.2); RDW 20.4 % (11.6-15.6)
[2021-11-19 11:04] LABS: INR 1.02 (0.83-1.09); PROTHROMBIN TIME (PATIENT) 11.7 SEC (9.7-13.0)
[2021-11-19 11:22] LABS: ALBUMIN 2.9 g/dl (3.4-5.0); BILIRUBIN,TOTAL 0.4 mg/dL (0.2-1); BLOOD UREA NITROGEN 24.8 mg/dL (7-18); CREATININE 1.2 mg/dL (0.55-1.3)
[2021-11-19 11:24] LABS: TOT PROT 6.6 g/dl (6.4-8.2)
[2021-11-19 11:31] LABS: CALCIUM 10.3 mg/dL (8.5-10.1); MAGNESIUM 1.9 mg/dL (1.8-2.4)
[2021-11-19] MEDS: ESCITALOPRAM OXALATE 10 MG TABLET PO SCH (11:34)
[2021-11-19] MEDS: metoPROLOL SUCCINATE 25 MG TAB.SR.24H (FP) PO SCH (11:34)
[2021-11-19] MEDS: PANTOPRAZOLE 40 MG TABLET PO SCH (11:34)
[2021-11-19] MEDS: ASCORBIC ACID 500 MG TABLET (FP) PO SCH (11:34)
[2021-11-19] MEDS: FUROSEMIDE 20 MG TABLET (FP) PO SCH (11:34)
[2021-11-19] MEDS: POLYETHYLENE GLYCOL (HEALTHYLAX) 3350 17 GM PACKET PO SCH (11:35)
[2021-11-19] MEDS: SODIUM ZIRCONIUM CYCLOSILICATE (LOKELMA) 5 GM PACKET PO SCH (11:54)
[2021-11-19] MEDS: BENZOCAINE/MENTHOL (CHLORASEPTIC ) LOZENGE MM PRN (19:25)
[2021-11-19] MEDS ORDERED: guaiFENesin/D-M SUGAR-FREE/ACLHOL-FREE 118 ML BOTTLE PO PRN (19:36)
[2021-11-19] MEDS: ATORVASTATIN CA 20 MG TABLET (FP) PO SCH (21:32)
[2021-11-19] MEDS: ACETAMINOPHEN 325 MG TABLET (FP) PO PRN (21:32)
[2021-11-20] MEDS: GABAPENTIN 300 MG CAPSULE PO SCH (05:56)
[2021-11-20] MEDS: INSULIN SLIDING SCALE (NOVOLOG) 1 VIAL SQ SCH (06:28)
[2021-11-20 09:11] LABS: BASO % 1.7 % (0-2.0); EOS % 1.6 % (0-4.5); HEMATOCRIT 24.9 % (32.4-45.2); LYMPH % 18.4 % (8-40); MCH 28.9 pg (25.7-33.7); MCHC 32.1 g/dl (32.0-36.0); MEAN PLT VOLUME 6.9 fl (7.5-11.1); MONO % 12.7 % (3.8-10.2); NEUT % 65.6 % (42.8-82.8); PLATELET COUNT 344 10^3/uL (134-434); RBC 2.76 M/mm3 (3.60-5.2); RDW 20.8 % (11.6-15.6); WHITE BLOOD COUNT 7.1 K/mm3 (4.0-10.0)
[2021-11-20 09:47] LABS: CALCIUM 9.5 mg/dL (8.5-10.1)
[2021-11-20 09:49] LABS: ALBUMIN 2.5 g/dl (3.4-5.0); BLOOD UREA NITROGEN 32.3 mg/dL (7-18)
[2021-11-20 09:51] LABS: CREATININE 1.5 mg/dL (0.55-1.3)
[2021-11-20 09:52] LABS: BILIRUBIN,TOTAL 0.4 mg/dL (0.2-1); TOT PROT 5.7 g/dl (6.4-8.2)
[2021-11-20 10:41] VITALS: BP 106/46; PULSE 80; TEMP 98.7
[2021-11-20] MEDS: ESCITALOPRAM OXALATE 10 MG TABLET PO SCH (10:44)
[2021-11-20] MEDS: metoPROLOL SUCCINATE 25 MG TAB.SR.24H (FP) PO SCH (10:44)
[2021-11-20] MEDS: PANTOPRAZOLE 40 MG TABLET PO SCH (10:44)
[2021-11-20] MEDS: ASCORBIC ACID 500 MG TABLET (FP) PO SCH (10:44)
[2021-11-20] MEDS: ALLOPURINOL 100 MG TABLET (FP) PO SCH (10:44)
[2021-11-20] MEDS: POLYETHYLENE GLYCOL (HEALTHYLAX) 3350 17 GM PACKET PO SCH (10:45)
[2021-11-20] MEDS: BENZOCAINE/MENTHOL (CHLORASEPTIC ) LOZENGE MM PRN (10:46)
[2021-11-20] MEDS: FUROSEMIDE 20 MG TABLET (FP) PO SCH (10:52)
== END 2021-11-20 12:18 | disposition home or self-care (01) | DRG 379 ==
LOC: JER 12:32 → JERBED 15:11 → J5S 11-16 00:38 → OBSVTOIN 11-18 16:55
PROVIDERS: ADMIT Internal Medicine; ATTEND Nurse Practitioner Acute Care
PROC: 0DBN8ZX Excision of Sigmoid Colon, Via Natural or Artificial Opening Endoscopic, Diagnostic (ICD-10-PCS; 2021-11-19)
PROC: 0DBL8ZX Excision of Transverse Colon, Via Natural or Artificial Opening Endoscopic, Diagnostic (ICD-10-PCS; 2021-11-19)
PROC: 0DBK8ZX Excision of Ascending Colon, Via Natural or Artificial Opening Endoscopic, Diagnostic (ICD-10-PCS; principal; 2021-11-19 08:00)
DX: K92.2 Gastrointestinal hemorrhage, unspecified (principal); E78.5 Hyperlipidemia, unspecified; D46.Z Other myelodysplastic syndromes; R91.8 Other nonspecific abnormal finding of lung field; N28.89 Other specified disorders of kidney and ureter; D17.79 Benign lipomatous neoplasm of other sites; L98.9 Disorder of the skin and subcutaneous tissue, unspecified; D50.9 Iron deficiency anemia, unspecified; I12.9 Hypertensive chronic kidney disease with stage 1 through stage 4 chronic kidney disease, or unspecified chronic kidney disease; E11.22 Type 2 diabetes mellitus with diabetic chronic kidney disease; N18.9 Chronic kidney disease, unspecified
CPT/HCPCS: 0241U-QW; 36415; 71045-TC-FY; 80053; 81003; 82272; 82962; 83540; 83550; 83735; 83880; 84443; 84484; 85025; 85610; 85730; 86850; 86900; 86901; 87086; 88305-TC; 93005; 93010; 97116-GP; 97162-GP; 99285-25; G0378

== ENCOUNTER 2021-11-29 09:12 | Day surgery (SDC) | payer MEDICARE, OTHER ==
[2021-11-29] MEDS ORDERED: FUROSEMIDE 40 MG/4 ML INJECTABLE VIAL IVPUSH SCH (11:45)
[2021-11-29 13:07] VITALS: RESP 18
[2021-11-29] MEDS ORDERED: FUROSEMIDE 40 MG/4 ML INJECTABLE VIAL IVPUSH ONE (17:00)
[2021-11-29 20:21] VITALS: BP 150/60; PULSE 81
[2021-11-29] MEDS ORDERED: INSULIN (LEVEMIR) 100 UNITS/ML UNITS SQ SCH (22:00)
[2021-11-29] MEDS ORDERED: ATORVASTATIN CA 20 MG TABLET (FP) PO SCH (22:00)
[2021-11-29] MEDS ORDERED: APIXABAN 5 MG TABLET PO SCH (22:00)
[2021-11-29] MEDS: GABAPENTIN 300 MG CAPSULE PO SCH (22:26)
[2021-11-30] MEDS: GABAPENTIN 300 MG CAPSULE PO SCH (05:51)
[2021-11-30 06:25] VITALS: TEMP 97.6
[2021-11-30 09:04] LABS: HEMATOCRIT 33.1 % (32.4-45.2); HEMOGLOBIN 10.9 GM/dL (10.7-15.3); LYMPH % 13.3 % (8-40); MCH 29.4 pg (25.7-33.7); MEAN CELL VOLUME 89.2 fl (80-96); MEAN PLT VOLUME 7.2 fl (7.5-11.1); MONO % 15.1 % (3.8-10.2); NEUT % 68.6 % (42.8-82.8); PLATELET COUNT 387 10^3/uL (134-434); RBC 3.72 M/mm3 (3.60-5.2); RDW 19.3 % (11.6-15.6); WHITE BLOOD COUNT 7.1 K/mm3 (4.0-10.0)
[2021-11-30] MEDS ORDERED: amLODIPine BESYLATE 5 MG TABLET (FP) PO SCH (10:00)
[2021-11-30] MEDS ORDERED: metoPROLOL SUCCINATE 25 MG TAB.SR.24H (FP) PO SCH (10:00)
[2021-11-30] MEDS ORDERED: PANTOPRAZOLE 40 MG TABLET PO SCH (10:00)
== END 2021-11-30 13:01 | disposition home or self-care (01) ==
LOC: JONCNONCHE 09:12 → J7W 09:12 → JONCNONCHE 11-30 13:01
PROVIDERS: ATTEND Internal Medicine Hematology & Oncology
PROC: 30233H1 Transfusion of Nonautologous Whole Blood into Peripheral Vein, Percutaneous Approach (ICD-10-PCS; principal; 2021-11-29)
PROC: 3E013GC Introduction of Other Therapeutic Substance into Subcutaneous Tissue, Percutaneous Approach (ICD-10-PCS; 2021-11-29)
DX: D46.4 Refractory anemia, unspecified (principal); D46.9 Myelodysplastic syndrome, unspecified; E61.1 Iron deficiency; E11.9 Type 2 diabetes mellitus without complications; Z79.84 Long term (current) use of oral hypoglycemic drugs
CPT/HCPCS: 36415; 36430; 82962; 85025; 86850; 86900; 86901; 86922; 96372; P9058

== ENCOUNTER 2022-06-16 19:17 | Observation (INO) | payer MEDICARE, OTHER ==
[2022-06-16 19:28] VITALS: BMI 28.5
[2022-06-16 21:18] LABS: EOS % 3.8 % (0-4.5); HEMATOCRIT 24.5 % (32.4-45.2); HEMOGLOBIN 7.9 GM/dL (10.7-15.3); LYMPH % 15.4 % (8-40); MCH 30.2 pg (25.7-33.7); MCHC 32.2 g/dl (32.0-36.0); MEAN CELL VOLUME 93.9 fl (80-96); MEAN PLT VOLUME 8.2 fl (7.5-11.1); MONO % 16.2 % (3.8-10.2); NEUT % 62.6 % (42.8-82.8); PLATELET COUNT 312 10^3/uL (134-434); RBC 2.61 M/mm3 (3.60-5.2); RDW 18.3 % (11.6-15.6); WHITE BLOOD COUNT 7.2 K/mm3 (4.0-10.0)
[2022-06-16 21:21] LABS: EPI CELLS 3 /uL (0-25.1); HYALINE CASTS 0 /uL (0-3.1); PH,URINE 5.5 (5.0-8.0); URINE APPEARANCE CLEAR; URINE BACTERIA 4 /uL (0-1359); URINE BILIRUBIN NEGATIVE (NEGATIVE); URINE COLOR YELLOW; URINE GLUCOSE (UA) NEGATIVE (NEGATIVE); URINE KETONE NEGATIVE (NEGATIVE); URINE LEUK ESTERASE NEGATIVE (NEGATIVE); URINE NITRITE NEGATIVE (NEGATIVE); URINE PROTEIN 1+ (NEGATIVE); URINE RBC 5 /uL (0-23.9); URINE UROBILINOGEN 0.2 mg/dL (0.2-1.0); URINE WBC 9 /uL (0-25.8)
[2022-06-16 21:27] LABS: INR 0.99 (0.83-1.09); PROTHROMBIN TIME (PATIENT) 11.5 SEC (9.7-13.0)
[2022-06-16 21:30] LABS: ACTIVATED PTT 29.5 SECONDS (25.2-36.5)
[2022-06-16 21:46] LABS: ALBUMIN 3.1 g/dl (3.4-5.0); CALCIUM 9.8 mg/dL (8.5-10.1)
[2022-06-16 21:47] LABS: BLOOD UREA NITROGEN 52.1 mg/dL (7-18)
[2022-06-16 21:49] LABS: CREATININE 1.7 mg/dL (0.55-1.3)
[2022-06-16 21:51] LABS: BILIRUBIN,TOTAL 0.2 mg/dL (0.2-1); TOT PROT 6.3 g/dl (6.4-8.2)
[2022-06-16] MEDS ORDERED: SODIUM CHLORIDE 0.9% 500 ML INFUS.BAG IV ONE (21:53)
[2022-06-16 21:54] LABS: N-TERMINAL BNP 256.3 pg/ml (5-450)
[2022-06-16] MEDS ORDERED: ACETAMINOPHEN 1000 MG/100 ML BAG IVPB ONE (23:39)
[2022-06-16] MEDS ORDERED: ACETAMINOPHEN INJECTION 100 ML IVPB ONE (23:40)
[2022-06-17] MEDS ORDERED: FUROSEMIDE 40 MG/4 ML INJECTABLE VIAL IVPUSH ONE (04:00)
[2022-06-17] MEDS ORDERED: LIDOCAINE 5% TOPICAL PATCH ONE (04:02)
[2022-06-17] MEDS ORDERED: LIDOCAINE 5% TOPICAL PATCH TP ONE (04:02)
[2022-06-17] MEDS ORDERED: FUROSEMIDE 40 MG/4 ML INJECTABLE VIAL ONE (04:04)
[2022-06-17 04:24] VITALS: RESP 18
[2022-06-17] MEDS ORDERED: glipiZIDE 5 MG TABLET (FP) PO SCH (06:00)
[2022-06-17] MEDS ORDERED: glipiZIDE 5 MG TABLET (FP) ONE (06:13)
[2022-06-17] MEDS ORDERED: IBUPROFEN 400 MG TABLET (FP) PO ONE (06:21)
[2022-06-17 06:51] LABS: BASO % 0.4 % (0-2.0); EOS % 3.8 % (0-4.5); HEMATOCRIT 29.7 % (32.4-45.2); HEMOGLOBIN 9.5 GM/dL (10.7-15.3); MCH 29.8 pg (25.7-33.7); MEAN CELL VOLUME 93.1 fl (80-96); MEAN PLT VOLUME 8.1 fl (7.5-11.1); MONO % 15.3 % (3.8-10.2); NEUT % 64.5 % (42.8-82.8); PLATELET COUNT 313 10^3/uL (134-434); RBC 3.19 M/mm3 (3.60-5.2); RDW 17.4 % (11.6-15.6); WHITE BLOOD COUNT 7.4 K/mm3 (4.0-10.0)
[2022-06-17] MEDS ORDERED: INSULIN (NOVOLOG) ASPART 100 UNITS/ML 10ML VIAL SQ SCH (07:00)
[2022-06-17 07:10] LABS: ALBUMIN 3.1 g/dl (3.4-5.0); BLOOD UREA NITROGEN 47.7 mg/dL (7-18); CALCIUM 10.1 mg/dL (8.5-10.1)
[2022-06-17 07:13] LABS: CREATININE 1.5 mg/dL (0.55-1.3)
[2022-06-17 07:15] LABS: BILIRUBIN,TOTAL 0.4 mg/dL (0.2-1); TOT PROT 6.4 g/dl (6.4-8.2)
[2022-06-17] MEDS ORDERED: SODIUM ZIRCONIUM CYCLOSILICATE (LOKELMA) 5 GM PACKET PO ONE (09:33)
[2022-06-17] MEDS ORDERED: PANTOPRAZOLE 40 MG TABLET PO ONE (09:35)
[2022-06-17] MEDS ORDERED: metoPROLOL SUCCINATE 25 MG TAB.SR.24H (FP) PO ONE (09:36)
[2022-06-17] MEDS ORDERED: metoPROLOL SUCCINATE 25 MG TAB.SR.24H (FP) PO SCH (10:00)
[2022-06-17] MEDS ORDERED: PANTOPRAZOLE 40 MG TABLET PO SCH (10:00)
[2022-06-17] MEDS ORDERED: amLODIPine BESYLATE 5 MG TABLET (FP) PO SCH (10:00)
[2022-06-17 10:20] VITALS: TEMP 97.9
[2022-06-17 10:40] VITALS: BP 154/72; PULSE 80
[2022-06-17] MEDS ORDERED: LIDOCAINE PATCH REMOVAL MC ONE (16:00)
[2022-06-17] MEDS ORDERED: ATORVASTATIN CA 20 MG TABLET (FP) PO SCH (22:00)
[2022-06-17] MEDS ORDERED: GABAPENTIN 100 MG CAPSULE PO SCH (22:00)
== END 2022-06-17 11:47 | disposition home or self-care (01) ==
LOC: JER 19:17 → JERBED 20:54
PROVIDERS: ADMIT Internal Medicine
PROC: 3E0337Z Introduction of Electrolytic and Water Balance Substance into Peripheral Vein, Percutaneous Approach (ICD-10-PCS; principal; 2022-06-16)
DX: D64.89 Other specified anemias (principal); E11.22 Type 2 diabetes mellitus with diabetic chronic kidney disease; I12.9 Hypertensive chronic kidney disease with stage 1 through stage 4 chronic kidney disease, or unspecified chronic kidney disease; N18.9 Chronic kidney disease, unspecified; E11.40 Type 2 diabetes mellitus with diabetic neuropathy, unspecified; R91.1 Solitary pulmonary nodule; E78.5 Hyperlipidemia, unspecified; G89.29 Other chronic pain; M25.569 Pain in unspecified knee; Z29.8 Encounter for other specified prophylactic measures
CPT/HCPCS: 36415; 36430; 71045-TC-FY; 80053; 81003; 82272; 82962; 83036; 83880; 85025; 85610; 85730; 86850; 86900; 86901; 86922; 93005; 93010; 93970-TC; 96374; 96375; 99285-25; C9803-CS; G0378; P9058; U0003; U0005

== ENCOUNTER 2022-07-17 12:05 | Observation (INO) | payer MEDICARE, OTHER ==
[2022-07-17 12:14] VITALS: BMI 29.2
[2022-07-17 15:01] LABS: BASO % 1.6 % (0-2.0); EOS % 2.4 % (0-4.5); HEMOGLOBIN 9.2 GM/dL (10.7-15.3); LYMPH % 13.1 % (8-40); MCH 27.9 pg (25.7-33.7); MCHC 30.7 g/dl (32.0-36.0); MEAN CELL VOLUME 91.1 fl (80-96); NEUT % 70.9 % (42.8-82.8); PLATELET COUNT 288 10^3/uL (134-434); RBC 3.29 M/mm3 (3.60-5.2); RDW 16.6 % (11.6-15.6); WHITE BLOOD COUNT 9.1 K/mm3 (4.0-10.0)
[2022-07-17 15:07] LABS: INR 0.98 (0.83-1.09); PROTHROMBIN TIME (PATIENT) 11.4 SEC (9.7-13.0)
[2022-07-17 15:09] LABS: CALCIUM 9.9 mg/dL (8.5-10.1)
[2022-07-17 15:10] LABS: ACTIVATED PTT 30.1 SECONDS (25.2-36.5); ALBUMIN 3.3 g/dl (3.4-5.0); BLOOD UREA NITROGEN 38.5 mg/dL (7-18)
[2022-07-17 15:11] LABS: EPI CELLS 17 /uL (0-25.1); HYALINE CASTS 0 /uL (0-3.1); PH,URINE 6.5 (5.0-8.0); URINE APPEARANCE CLEAR; URINE BACTERIA 56 /uL (0-1359); URINE BILIRUBIN NEGATIVE (NEGATIVE); URINE COLOR YELLOW; URINE GLUCOSE (UA) NEGATIVE (NEGATIVE); URINE KETONE NEGATIVE (NEGATIVE); URINE LEUK ESTERASE 1+ (NEGATIVE); URINE NITRITE NEGATIVE (NEGATIVE); URINE PROTEIN 2+ (NEGATIVE); URINE RBC 106 /uL (0-23.9); URINE UROBILINOGEN 0.2 mg/dL (0.2-1.0); URINE WBC 94 /uL (0-25.8)
[2022-07-17 15:12] LABS: CHOLESTEROL 170 mg/dL (50-200); TRIGLYCERIDES 140 mg/dL (0-150)
[2022-07-17 15:13] LABS: CREATININE 1.5 mg/dL (0.55-1.3); LDL CHOLESTEROL (ONLY SJRH) 91 mg/dL (5-100)
[2022-07-17 15:14] LABS: TOT PROT 6.7 g/dl (6.4-8.2)
[2022-07-17 15:15] LABS: BILIRUBIN,TOTAL 0.4 mg/dL (0.2-1); HDL CHOLESTEROL 53 mg/dL (40-60)
[2022-07-17] MEDS ORDERED: CEFTRIAXONE 1,000 MG in DEXTROSE 5%-WATER - 50 ML IVPB ONE (16:23)
[2022-07-17] MEDS ORDERED: ASPIRIN 325 MG ENTERIC COATED TABLET (FP) PO ONE (19:13)
[2022-07-17] MEDS ORDERED: ASPIRIN 325 MG ENTERIC COATED TABLET (FP) ONE (21:47)
[2022-07-17] MEDS ORDERED: PANTOPRAZOLE 40 MG TABLET PO ONE (21:47)
[2022-07-17] MEDS ORDERED: ATORVASTATIN CA 80 MG TABLET (FP) ONE (21:49)
[2022-07-17] MEDS ORDERED: PANTOPRAZOLE SODIUM 40 MG VIAL ONE (21:49)
[2022-07-17] MEDS: PANTOPRAZOLE SODIUM 40 MG VIAL IVPUSH SCH (21:58)
[2022-07-17] MEDS: ATORVASTATIN CA 80 MG TABLET (FP) PO SCH (21:58)
[2022-07-17] MEDS ORDERED: HEPARIN NA (PORCINE) 5,000 UNITS/ML 1ML VIAL SQ SCH (22:00)
[2022-07-18 06:33] LABS: EOS % 2.7 % (0-4.5); HEMATOCRIT 25.7 % (32.4-45.2); HEMOGLOBIN 8.4 GM/dL (10.7-15.3); LYMPH % 13.8 % (8-40); MCHC 32.5 g/dl (32.0-36.0); MEAN CELL VOLUME 92.2 fl (80-96); MEAN PLT VOLUME 8.2 fl (7.5-11.1); MONO % 11.5 % (3.8-10.2); PLATELET COUNT 280 10^3/uL (134-434); RBC 2.79 M/mm3 (3.60-5.2); RDW 16.3 % (11.6-15.6); WHITE BLOOD COUNT 7.8 K/mm3 (4.0-10.0)
[2022-07-18] MEDS: INSULIN SLIDING SCALE (NOVOLOG) 1 VIAL SQ SCH ×4 (06:34→21:37)
[2022-07-18 06:45] LABS: INR 1.07 (0.83-1.09); PROTHROMBIN TIME (PATIENT) 12.4 SEC (9.7-13.0)
[2022-07-18 06:56] LABS: ALBUMIN 2.7 g/dl (3.4-5.0); CALCIUM 9.8 mg/dL (8.5-10.1)
[2022-07-18 06:57] LABS: BLOOD UREA NITROGEN 31.6 mg/dL (7-18)
[2022-07-18 06:59] LABS: BILIRUBIN,TOTAL 0.5 mg/dL (0.2-1); CREATININE 1.3 mg/dL (0.55-1.3); PHOSPHOROUS 3.1 mg/dL (2.5-4.9); TOT PROT 5.4 g/dl (6.4-8.2)
[2022-07-18] MEDS: amLODIPine BESYLATE 5 MG TABLET (FP) PO SCH ×2 (11:23→21:10)
[2022-07-18] MEDS: PANTOPRAZOLE SODIUM 40 MG VIAL IVPUSH SCH (11:23)
[2022-07-18] MEDS: ASPIRIN COATED 81 MG TABLET.EC PO SCH (11:23)
[2022-07-18] MEDS: metoPROLOL SUCCINATE 25 MG TAB.SR.24H (FP) PO SCH (11:24)
[2022-07-18] MEDS: ATORVASTATIN CA 80 MG TABLET (FP) PO SCH (21:10)
[2022-07-18] MEDS: GABAPENTIN 100 MG CAPSULE PO SCH (21:10)
[2022-07-19] MEDS: INSULIN SLIDING SCALE (NOVOLOG) 1 VIAL SQ SCH ×4 (06:44→21:47)
[2022-07-19 08:56] LABS: HEMATOCRIT 28.5 % (32.4-45.2); HEMOGLOBIN 9.1 GM/dL (10.7-15.3); MCH 29.8 pg (25.7-33.7); MCHC 31.9 g/dl (32.0-36.0); MEAN CELL VOLUME 93.4 fl (80-96); MEAN PLT VOLUME 8.3 fl (7.5-11.1); PLATELET COUNT 276 10^3/uL (134-434); RBC 3.05 M/mm3 (3.60-5.2); RDW 16.5 % (11.6-15.6); WHITE BLOOD COUNT 7.6 K/mm3 (4.0-10.0)
[2022-07-19 09:24] LABS: CALCIUM 10.1 mg/dL (8.5-10.1)
[2022-07-19 09:25] LABS: ALBUMIN 2.9 g/dl (3.4-5.0); BLOOD UREA NITROGEN 34.2 mg/dL (7-18)
[2022-07-19 09:28] LABS: CREATININE 1.5 mg/dL (0.55-1.3)
[2022-07-19] MEDS: ESCITALOPRAM OXALATE 10 MG TABLET PO SCH (09:28)
[2022-07-19] MEDS: amLODIPine BESYLATE 5 MG TABLET (FP) PO SCH ×2 (09:28→21:46)
[2022-07-19] MEDS: GABAPENTIN 100 MG CAPSULE PO SCH ×2 (09:28→21:46)
[2022-07-19] MEDS: PANTOPRAZOLE 40 MG TABLET PO SCH (09:28)
[2022-07-19] MEDS: ASPIRIN COATED 81 MG TABLET.EC PO SCH (09:28)
[2022-07-19 09:29] LABS: BILIRUBIN,TOTAL 1.1 mg/dL (0.2-1)
[2022-07-19] MEDS: metoPROLOL SUCCINATE 25 MG TAB.SR.24H (FP) PO SCH (09:29)
[2022-07-19] MEDS: ENOXAPARIN NA (PORCINE) 40 MG/0.4 ML DISP.SYRIN SQ SCH (09:29)
[2022-07-19 09:30] LABS: TOT PROT 5.9 g/dl (6.4-8.2)
[2022-07-19 16:24] LABS: EPI CELLS 21 /uL (0-25.1); HYALINE CASTS 1 /uL (0-3.1); PH,URINE 6.5 (5.0-8.0); URINE APPEARANCE Error; URINE BACTERIA 27 /uL (0-1359); URINE BILIRUBIN NEGATIVE (NEGATIVE); URINE COLOR YELLOW; URINE GLUCOSE (UA) NEGATIVE (NEGATIVE); URINE KETONE NEGATIVE (NEGATIVE); URINE LEUK ESTERASE 2+ (NEGATIVE); URINE NITRITE NEGATIVE (NEGATIVE); URINE PROTEIN 1+ (NEGATIVE); URINE RBC 8 /uL (0-23.9); URINE UROBILINOGEN 0.2 mg/dL (0.2-1.0); URINE WBC 45 /uL (0-25.8)
[2022-07-19] MEDS: ATORVASTATIN CA 80 MG TABLET (FP) PO SCH (21:46)
[2022-07-20] MEDS: INSULIN SLIDING SCALE (NOVOLOG) 1 VIAL SQ SCH ×4 (06:15→21:11)
[2022-07-20 08:08] LABS: HEMATOCRIT 26.2 % (32.4-45.2); HEMOGLOBIN 8.4 GM/dL (10.7-15.3); MCHC 32.1 g/dl (32.0-36.0); MEAN CELL VOLUME 90.6 fl (80-96); MEAN PLT VOLUME 8.6 fl (7.5-11.1); PLATELET COUNT 259 10^3/uL (134-434); RBC 2.89 M/mm3 (3.60-5.2); RDW 16.8 % (11.6-15.6); WHITE BLOOD COUNT 6.4 K/mm3 (4.0-10.0)
[2022-07-20 08:09] LABS: CALCIUM 9.6 mg/dL (8.5-10.1)
[2022-07-20 08:10] LABS: BLOOD UREA NITROGEN 33.4 mg/dL (7-18)
[2022-07-20 08:13] LABS: CREATININE 1.5 mg/dL (0.55-1.3)
[2022-07-20] MEDS: PANTOPRAZOLE 40 MG TABLET PO SCH (10:14)
[2022-07-20] MEDS: amLODIPine BESYLATE 5 MG TABLET (FP) PO SCH ×2 (10:14→21:13)
[2022-07-20] MEDS: ENOXAPARIN NA (PORCINE) 40 MG/0.4 ML DISP.SYRIN SQ SCH (10:14)
[2022-07-20] MEDS: FERROUS SO4 325 MG TABLET (FP) PO SCH (10:14)
[2022-07-20] MEDS: ASPIRIN COATED 81 MG TABLET.EC PO SCH (10:14)
[2022-07-20] MEDS: metoPROLOL SUCCINATE 25 MG TAB.SR.24H (FP) PO SCH (10:14)
[2022-07-20] MEDS: ESCITALOPRAM OXALATE 10 MG TABLET PO SCH (10:14)
[2022-07-20] MEDS: GABAPENTIN 100 MG CAPSULE PO SCH ×2 (10:14→21:13)
[2022-07-20 10:24] VITALS: RESP 18
[2022-07-20] MEDS: POLYETHYLENE GLYCOL (HEALTHYLAX) 3350 17 GM PACKET PO SCH (11:02)
[2022-07-20] MEDS ORDERED: BISACODYL 10 MG SUPP.RECT PR ONE (11:15)
[2022-07-20] MEDS: ATORVASTATIN CA 80 MG TABLET (FP) PO SCH (21:13)
[2022-07-21] MEDS: INSULIN SLIDING SCALE (NOVOLOG) 1 VIAL SQ SCH ×2 (06:24→11:03)
[2022-07-21] MEDS: amLODIPine BESYLATE 5 MG TABLET (FP) PO SCH (10:25)
[2022-07-21] MEDS: PANTOPRAZOLE 40 MG TABLET PO SCH (10:25)
[2022-07-21] MEDS: FERROUS SO4 325 MG TABLET (FP) PO SCH (10:26)
[2022-07-21] MEDS: metoPROLOL SUCCINATE 25 MG TAB.SR.24H (FP) PO SCH (10:26)
[2022-07-21] MEDS: ASPIRIN COATED 81 MG TABLET.EC PO SCH (10:26)
[2022-07-21] MEDS: ESCITALOPRAM OXALATE 10 MG TABLET PO SCH (10:26)
[2022-07-21] MEDS: GABAPENTIN 100 MG CAPSULE PO SCH (10:26)
[2022-07-21] MEDS: POLYETHYLENE GLYCOL (HEALTHYLAX) 3350 17 GM PACKET PO SCH (10:27)
[2022-07-21] MEDS: ENOXAPARIN NA (PORCINE) 40 MG/0.4 ML DISP.SYRIN SQ SCH (10:29)
[2022-07-21 11:54] VITALS: BP 151/66; PULSE 85; TEMP 98
== END 2022-07-21 12:02 | disposition home or self-care (01) ==
LOC: JER 12:05 → JERBED 17:47 → J4S 23:10
PROVIDERS: ADMIT Internal Medicine; ATTEND Internal Medicine
PROC: 3E03329 Introduction of Other Anti-infective into Peripheral Vein, Percutaneous Approach (ICD-10-PCS; principal; 2022-07-17)
PROC: 3E023GC Introduction of Other Therapeutic Substance into Muscle, Percutaneous Approach (ICD-10-PCS; 2022-07-17)
PROC: 3E013VG Introduction of Insulin into Subcutaneous Tissue, Percutaneous Approach (ICD-10-PCS; 2022-07-17)
PROC: 3E033GC Introduction of Other Therapeutic Substance into Peripheral Vein, Percutaneous Approach (ICD-10-PCS; 2022-07-17)
DX: G81.94 Hemiplegia, unspecified affecting left nondominant side (principal); I11.9 Hypertensive heart disease without heart failure; C94.6 Myelodysplastic disease, not elsewhere classified; R47.1 Dysarthria and anarthria; E11.9 Type 2 diabetes mellitus without complications; K92.9 Disease of digestive system, unspecified; E78.00 Pure hypercholesterolemia, unspecified; D64.9 Anemia, unspecified; M25.569 Pain in unspecified knee; G89.29 Other chronic pain; G62.9 Polyneuropathy, unspecified; R91.1 Solitary pulmonary nodule; R51.9 Headache, unspecified; R42 Dizziness and giddiness
CPT/HCPCS: 0241U-QW; 36415; 70450-TC; 80048; 80053; 80061; 81003; 82272; 82607; 82728; 82962; 83036; 83540; 83550; 83735; 84100; 84443; 84484; 85025; 85027; 85610; 85730; 87086; 87186; 93005; 93010; 93306-TC; 93970-TC; 96365; 96372; 96375; 97116-GP; 97161-GP; 99285-25; G0378

== ENCOUNTER 2022-07-25 10:45 | Day surgery (SDC) | payer MEDICARE, OTHER ==
[~2022-07-25 10:45] MED LIST changes: +EPOETIN ALFA-EPBX 40,000 UNIT/ML VIAL SQ ONE; -FUROSEMIDE 40 MG TABLET (FP) PO ONE; +IRON SUCROSE INJECTION 200 MG in SODIUM CHLORIDE 100 ML IVPB ONE
[2022-07-25 18:02] VITALS: RESP 16; TEMP 97.2
[2022-07-25 18:05] VITALS: BP 137/60; PULSE 76
== END 2022-07-25 12:15 | disposition home or self-care (01) ==
LOC: JONCNONCHE 10:45
PROVIDERS: ATTEND Internal Medicine Hematology & Oncology
PROC: 3E033GC Introduction of Other Therapeutic Substance into Peripheral Vein, Percutaneous Approach (ICD-10-PCS; principal; 2022-07-25)
DX: E61.1 Iron deficiency (principal)
CPT/HCPCS: 96365; J1756; Q5106

== ENCOUNTER 2022-08-01 11:00 | Day surgery (SDC) | payer MEDICARE, OTHER ==
[~2022-08-01 11:00] MED LIST changes: +EPOETIN ALFA-EPBX 20,000 UNIT/2 ML MDV SQ ONE; -EPOETIN ALFA-EPBX 40,000 UNIT/ML VIAL SQ ONE
[2022-08-01 14:56] VITALS: TEMP 99
[2022-08-01 15:04] VITALS: BP 150/59; PULSE 76; RESP 18
== END 2022-08-01 12:55 | disposition home or self-care (01) ==
LOC: JONCNONCHE 11:00
PROVIDERS: ATTEND Internal Medicine Hematology & Oncology
PROC: 3E033GC Introduction of Other Therapeutic Substance into Peripheral Vein, Percutaneous Approach (ICD-10-PCS; principal; 2022-08-01)
DX: D50.9 Iron deficiency anemia, unspecified (principal)
CPT/HCPCS: 96365; J1756; Q5106

== ENCOUNTER 2022-08-08 11:06 | Day surgery (SDC) | payer MEDICARE, OTHER ==
[~2022-08-08 11:06] MED LIST changes: +IRON SUCROSE INJECTION 100 MG in SODIUM CHLORIDE 100 ML IVPB ONE; -IRON SUCROSE INJECTION 200 MG in SODIUM CHLORIDE 100 ML IVPB ONE
[2022-08-08 14:13] VITALS: BP 138/54; PULSE 66; RESP 20; TEMP 98.8
== END 2022-08-08 13:40 | disposition home or self-care (01) ==
LOC: JONCNONCHE 11:06
PROVIDERS: ATTEND Internal Medicine Hematology & Oncology
PROC: 3E033GC Introduction of Other Therapeutic Substance into Peripheral Vein, Percutaneous Approach (ICD-10-PCS; principal; 2022-08-08)
DX: D50.9 Iron deficiency anemia, unspecified (principal)
CPT/HCPCS: 96365; J1756; Q5106

== ENCOUNTER 2022-08-15 10:41 | Day surgery (SDC) | payer MEDICARE, OTHER ==
[~2022-08-15 10:41] MED LIST changes: -EPOETIN ALFA-EPBX 20,000 UNIT/2 ML MDV SQ ONE; +EPOETIN ALFA-EPBX 20,000 UNIT/ML VIAL SQ ONE
[2022-08-15 17:22] VITALS: BP 139/55; PULSE 75; RESP 18; TEMP 98.3
== END 2022-08-15 12:35 | disposition home or self-care (01) ==
LOC: JONCNONCHE 10:41
PROVIDERS: ATTEND Internal Medicine Hematology & Oncology
PROC: 3E033GC Introduction of Other Therapeutic Substance into Peripheral Vein, Percutaneous Approach (ICD-10-PCS; principal; 2022-08-15)
DX: D50.9 Iron deficiency anemia, unspecified (principal)
CPT/HCPCS: 96365; J1756

== ENCOUNTER 2022-08-20 11:48 | Day surgery (SDC) | payer MEDICARE, OTHER ==
[2022-08-20] MEDS ORDERED: IRON SUCROSE INJECTION 100 MG in SODIUM CHLORIDE 100 ML IVPB ONE (13:00)
[2022-08-20 15:02] VITALS: RESP 20; TEMP 98.9
[2022-08-20 15:05] VITALS: BP 129/57; PULSE 69
== END 2022-08-20 13:30 | disposition home or self-care (01) ==
LOC: JONCNONCHE 11:48
PROVIDERS: ATTEND Internal Medicine Hematology & Oncology
PROC: 3E033GC Introduction of Other Therapeutic Substance into Peripheral Vein, Percutaneous Approach (ICD-10-PCS; principal; 2022-08-20)
DX: D50.9 Iron deficiency anemia, unspecified (principal)
CPT/HCPCS: 96365; J1756

== ENCOUNTER 2022-09-05 08:56 | Day surgery (SDC) | payer MEDICARE, OTHER ==
[2022-09-05] MEDS ORDERED: FUROSEMIDE 40 MG TABLET (FP) PO ONE (09:00)
[2022-09-05 18:29] VITALS: RESP 18
[2022-09-06 07:07] VITALS: BP 147/66; PULSE 76; TEMP 98.5
== END 2022-09-06 10:16 | disposition home or self-care (01) ==
LOC: JONCBLOOD 08:56 → J7W 19:16 → JONCBLOOD 09-06 10:16
PROVIDERS: ATTEND Internal Medicine Hematology & Oncology
PROC: 30233H1 Transfusion of Nonautologous Whole Blood into Peripheral Vein, Percutaneous Approach (ICD-10-PCS; principal; 2022-09-05)
DX: D46.9 Myelodysplastic syndrome, unspecified (principal)
CPT/HCPCS: 36430; 36511; 82962; 86850; 86900; 86901; 86922; P9038; P9058

== ENCOUNTER 2022-10-03 10:18 | Day surgery (SDC) | payer MEDICARE, OTHER ==
[~2022-10-03 10:18] MED LIST changes: -EPOETIN ALFA-EPBX 20,000 UNIT/ML VIAL SQ ONE
[2022-10-03] MEDS ORDERED: EPOETIN ALFA-EPBX 20,000 UNIT/ML VIAL SQ ONE (12:00)
[2022-10-03 17:34] VITALS: BP 145/60; RESP 18; TEMP 97.8
[2022-10-03 17:36] VITALS: PULSE 76
== END 2022-10-03 12:45 | disposition home or self-care (01) ==
LOC: JONCNONCHE 10:18 → J7W 10:19 → JONCNONCHE 12:45
PROVIDERS: ATTEND Internal Medicine Hematology & Oncology
PROC: 3E033GC Introduction of Other Therapeutic Substance into Peripheral Vein, Percutaneous Approach (ICD-10-PCS; principal; 2022-10-03)
PROC: 3E013GC Introduction of Other Therapeutic Substance into Subcutaneous Tissue, Percutaneous Approach (ICD-10-PCS; 2022-10-03)
DX: D46.9 Myelodysplastic syndrome, unspecified (principal); E61.1 Iron deficiency
CPT/HCPCS: 96365; 96372; J1756

== ENCOUNTER 2022-10-10 10:12 | Day surgery (SDC) | payer MEDICARE, OTHER ==
[2022-10-10 16:21] VITALS: BP 145/59; PULSE 76; RESP 20; TEMP 99.2
== END 2022-10-10 11:35 | disposition home or self-care (01) ==
LOC: J7W 10:12 → JONCNONCHE 10:12
PROVIDERS: ATTEND Internal Medicine Hematology & Oncology
PROC: 3E033GC Introduction of Other Therapeutic Substance into Peripheral Vein, Percutaneous Approach (ICD-10-PCS; principal; 2022-10-10)
DX: D46.9 Myelodysplastic syndrome, unspecified (principal); E61.1 Iron deficiency
CPT/HCPCS: 96365; J1756

== ENCOUNTER 2022-10-17 10:07 | Day surgery (SDC) | payer MEDICARE, OTHER ==
[~2022-10-17 10:07] MED LIST changes: +EPOETIN ALFA-EPBX 20,000 UNIT/2 ML MDV SQ ONE
[2022-10-17 14:51] VITALS: TEMP 98.6
[2022-10-17 14:58] VITALS: BP 164/67; PULSE 82; RESP 18
== END 2022-10-17 11:30 | disposition home or self-care (01) ==
LOC: JONCNONCHE 10:07 → J7W 10:10 → JONCNONCHE 11:30
PROVIDERS: ATTEND Internal Medicine Hematology & Oncology
PROC: 3E033GC Introduction of Other Therapeutic Substance into Peripheral Vein, Percutaneous Approach (ICD-10-PCS; principal; 2022-10-17)
PROC: 3E013GC Introduction of Other Therapeutic Substance into Subcutaneous Tissue, Percutaneous Approach (ICD-10-PCS; 2022-10-17)
DX: D46.9 Myelodysplastic syndrome, unspecified (principal); D50.9 Iron deficiency anemia, unspecified
CPT/HCPCS: 96365; 96372; J1756; Q5106

== ENCOUNTER 2022-10-24 07:44 | Day surgery (SDC) | payer MEDICARE, OTHER ==
[2022-10-24] MEDS ORDERED: EPOETIN ALFA-EPBX 20,000 UNIT/2 ML MDV SQ ONE (10:00)
[2022-10-24] MEDS ORDERED: IRON SUCROSE INJECTION 100 MG in SODIUM CHLORIDE 100 ML IVPB ONE (10:00)
[2022-10-24] MEDS ORDERED: FUROSEMIDE 40 MG/4 ML INJECTABLE VIAL IVPUSH ONE (14:30)
[2022-10-24 15:36] VITALS: BP 143/63; PULSE 68; RESP 18; TEMP 98.5
[2022-10-24 15:37] LABS: BASO % 0.9 % (0-2.0); EOS % 1.3 % (0-4.5); HEMATOCRIT 25.7 % (32.4-45.2); HEMOGLOBIN 8.1 GM/dL (10.7-15.3); MCHC 31.5 g/dl (32.0-36.0); MONO % 15.4 % (3.8-10.2); NEUT % 69.4 % (42.8-82.8); PLATELET COUNT 323 10^3/uL (134-434); RBC 2.79 M/mm3 (3.60-5.2); RDW 19.2 % (11.6-15.6); WHITE BLOOD COUNT 7.5 K/mm3 (4.0-10.0)
== END 2022-10-24 15:39 | disposition home or self-care (01) ==
LOC: JONCNONCHE 07:44 → J7W 07:45 → JONCNONCHE 15:39
PROVIDERS: ATTEND Internal Medicine Hematology & Oncology
PROC: 30233H1 Transfusion of Nonautologous Whole Blood into Peripheral Vein, Percutaneous Approach (ICD-10-PCS; principal; 2022-10-24)
PROC: 3E033GC Introduction of Other Therapeutic Substance into Peripheral Vein, Percutaneous Approach (ICD-10-PCS; 2022-10-24)
DX: D46.9 Myelodysplastic syndrome, unspecified (principal); D50.9 Iron deficiency anemia, unspecified
CPT/HCPCS: 36415; 36430; 85025; 86850; 86900; 86901; 86922; 96365; J1756; P9058; Q5106

== ENCOUNTER 2022-12-18 08:31 | Day surgery (SDC) | payer MEDICARE, OTHER ==
[2022-12-18] MEDS ORDERED: FUROSEMIDE 40 MG TABLET (FP) PO ONE ×2 (10:00→14:45)
[2022-12-18 10:19] LABS: BASO % 1.2 % (0-2.0); EOS % 1.3 % (0-4.5); HEMATOCRIT 20.9 % (32.4-45.2); LYMPH % 13.7 % (8-40); MCH 30.2 pg (25.7-33.7); MCHC 31.9 g/dl (32.0-36.0); MEAN CELL VOLUME 94.6 fl (80-96); MEAN PLT VOLUME 8.2 fl (7.5-11.1); MONO % 13.2 % (3.8-10.2); NEUT % 70.6 % (42.8-82.8); PLATELET COUNT 291 10^3/uL (134-434); RBC 2.21 M/mm3 (3.60-5.2); RDW 17.7 % (11.6-15.6); WHITE BLOOD COUNT 7.6 K/mm3 (4.0-10.0)
[2022-12-18 10:24] LABS: HEMOGLOBIN 6.7 GM/dL (10.7-15.3)
[2022-12-18 10:46] VITALS: BP 144/66; PULSE 89; RESP 20; TEMP 98.9
[2022-12-18 18:07] LABS: BASO % 1.2 % (0-2.0); EOS % 1.9 % (0-4.5); HEMATOCRIT 29.4 % (32.4-45.2); HEMOGLOBIN 9.4 GM/dL (10.7-15.3); MCH 28.3 pg (25.7-33.7); MEAN CELL VOLUME 88.5 fl (80-96); MEAN PLT VOLUME 7.6 fl (7.5-11.1); NEUT % 65.9 % (42.8-82.8); PLATELET COUNT 267 10^3/uL (134-434); RBC 3.33 M/mm3 (3.60-5.2); RDW 18.7 % (11.6-15.6)
== END 2022-12-18 18:16 | disposition home or self-care (01) ==
LOC: JONCBLOOD 08:31 → J7W 08:33 → JONCBLOOD 18:16
PROVIDERS: ATTEND Internal Medicine Hematology & Oncology
PROC: 30233N1 Transfusion of Nonautologous Red Blood Cells into Peripheral Vein, Percutaneous Approach (ICD-10-PCS; principal; 2022-12-18)
DX: D50.0 Iron deficiency anemia secondary to blood loss (chronic) (principal); D46.9 Myelodysplastic syndrome, unspecified
CPT/HCPCS: 36415; 36430; 85025; 86850; 86900; 86901; 86922; P9058

== ENCOUNTER 2023-01-27 10:48 | Emergency (ER) | payer MEDICARE, OTHER ==
[2023-01-27 10:54] VITALS: BMI 29.2
[2023-01-27 12:22] LABS: VENOUS BASE EXCESS -1.5 mmol/L (-2-2); VENOUS O2 SATURATION 75.7 % (70-80); VENOUS PCO2 43.3 mmHg (38-52); VENOUS PH 7.36 (7.310-7.410)
[2023-01-27 12:24] LABS: BASO % 0.9 % (0-2.0); EOS % 0.8 % (0-4.5); HEMATOCRIT 25.3 % (32.4-45.2); HEMOGLOBIN 8.2 GM/dL (10.7-15.3); LYMPH % 9.4 % (8-40); MCH 29.7 pg (25.7-33.7); MCHC 32.2 g/dl (32.0-36.0); MEAN PLT VOLUME 8.5 fl (7.5-11.1); MONO % 10.7 % (3.8-10.2); NEUT % 78.2 % (42.8-82.8); PLATELET COUNT 276 10^3/uL (134-434); RBC 2.75 M/mm3 (3.60-5.2); RDW 18.5 % (11.6-15.6); WHITE BLOOD COUNT 9.7 K/mm3 (4.0-10.0)
[2023-01-27 12:54] LABS: POTASSIUM 5.3 mmol/L (3.5-5.1)
[2023-01-27 12:55] LABS: CALCIUM 9.6 mg/dL (8.5-10.1)
[2023-01-27 12:56] LABS: ALBUMIN 3.4 g/dl (3.4-5.0); BLOOD UREA NITROGEN 46.6 mg/dL (7-18); MAGNESIUM 2.1 mg/dL (1.8-2.4)
[2023-01-27 12:59] LABS: CREATININE 1.7 mg/dL (0.55-1.3)
[2023-01-27 13:01] LABS: TOT PROT 6.5 g/dl (6.4-8.2)
[2023-01-27 13:06] LABS: BILIRUBIN,TOTAL 0.6 mg/dL (0.2-1)
[2023-01-27 15:39] VITALS: BP 156/77; PULSE 68; RESP 18; TEMP 98.9
[2023-01-27] MEDS: SODIUM CHLORIDE 0.9% 500 ML INFUS.BAG IV ONE ×2 (16:41→16:52)
[2023-01-27 17:20] LABS: EPI CELLS 2 /uL (0-25.1); HYALINE CASTS 0 /uL (0-3.1); PH,URINE 5.5 (5.0-8.0); URINE APPEARANCE CLEAR; URINE BACTERIA 1 /uL (0-1359); URINE BILIRUBIN NEGATIVE (NEGATIVE); URINE COLOR YELLOW; URINE GLUCOSE (UA) NEGATIVE (NEGATIVE); URINE KETONE NEGATIVE (NEGATIVE); URINE LEUK ESTERASE NEGATIVE (NEGATIVE); URINE NITRITE NEGATIVE (NEGATIVE); URINE PROTEIN 2+ (NEGATIVE); URINE RBC 10 /uL (0-23.9); URINE UROBILINOGEN 0.2 mg/dL (0.2-1.0); URINE WBC 6 /uL (0-25.8)
[2023-01-27] MEDS ORDERED: CEPHALEXIN MONOHYDRATE 500 MG CAPSULE (UD) PO ONE (17:36)
[2023-01-27] MEDS ORDERED: CEPHALEXIN MONOHYDRATE 500 MG CAPSULE (UD) ONE (17:44)
== END 2023-01-27 17:49 | disposition home or self-care (01) ==
LOC: JER 10:48
DX: R35.0 Frequency of micturition (principal); R68.83 Chills (without fever); R11.0 Nausea; R80.9 Proteinuria, unspecified; N39.0 Urinary tract infection, site not specified
CPT/HCPCS: 36415; 80053; 81003; 82803; 83735; 85025; 87086; 99283-25

== ENCOUNTER 2023-03-06 08:05 | Day surgery (SDC) | payer MEDICARE, OTHER ==
[2023-03-06] MEDS ORDERED: EPOETIN ALFA-EPBX 40,000 UNIT/ML VIAL SQ ONE (09:00)
[2023-03-06 10:04] LABS: BASO % 1.4 % (0-2.0); EOS % 1.7 % (0-4.5); HEMATOCRIT 23.7 % (32.4-45.2); HEMOGLOBIN 7.5 GM/dL (10.7-15.3); LYMPH % 11.7 % (8-40); MCH 29.4 pg (25.7-33.7); MCHC 31.5 g/dl (32.0-36.0); MEAN CELL VOLUME 93.3 fl (80-96); MEAN PLT VOLUME 8.1 fl (7.5-11.1); MONO % 10.8 % (3.8-10.2); NEUT % 74.4 % (42.8-82.8); PLATELET COUNT 435 10^3/uL (134-434); RBC 2.55 M/mm3 (3.60-5.2); RDW 18.9 % (11.6-15.6); WHITE BLOOD COUNT 7.7 K/mm3 (4.0-10.0)
[2023-03-06 10:39] LABS: BLOOD UREA NITROGEN 45.1 mg/dL (7-18); CALCIUM 9.9 mg/dL (8.5-10.1)
[2023-03-06 10:40] LABS: ALBUMIN 3.3 g/dl (3.4-5.0); MAGNESIUM 2.3 mg/dL (1.8-2.4)
[2023-03-06 10:43] LABS: CREATININE 1.7 mg/dL (0.55-1.3)
[2023-03-06 10:44] LABS: BILIRUBIN,TOTAL 0.4 mg/dL (0.2-1); TOT PROT 6.4 g/dl (6.4-8.2)
[2023-03-06] MEDS ORDERED: SODIUM POLYSTYRENE SULFONATE 15 GM/60 ML BOTTLE PO ONE (12:00)
[2023-03-06] MEDS ORDERED: FUROSEMIDE 40 MG TABLET (FP) PO ONE (12:00)
[2023-03-06 17:42] VITALS: BP 112/57; PULSE 70; RESP 20; TEMP 98
== END 2023-03-06 17:49 | disposition home or self-care (01) ==
LOC: JONCBLOOD 08:05 → J7W 08:05 → JONCBLOOD 17:49
PROVIDERS: ATTEND Internal Medicine Hematology & Oncology
PROC: 30233N1 Transfusion of Nonautologous Red Blood Cells into Peripheral Vein, Percutaneous Approach (ICD-10-PCS; principal; 2023-03-06)
DX: D46.9 Myelodysplastic syndrome, unspecified (principal); E61.1 Iron deficiency
CPT/HCPCS: 36415; 36430; 80053; 83735; 85025; 86850; 86900; 86901; 86922; P9058

== ENCOUNTER 2023-04-10 08:05 | Day surgery (SDC) | payer MEDICARE, OTHER ==
[2023-04-10] MEDS ORDERED: INSULIN SLIDING SCALE (NOVOLOG) 1 VIAL SQ ONE (09:00)
[2023-04-10] MEDS ORDERED: FUROSEMIDE 40 MG TABLET (FP) PO ONE (10:00)
[2023-04-10 16:34] VITALS: BP 151/55; PULSE 70; RESP 20; TEMP 98.3
[2023-04-10 17:29] LABS: BASO % 2.1 % (0-2.0); EOS % 2.9 % (0-4.5); HEMATOCRIT 28.8 % (32.4-45.2); HEMOGLOBIN 9.7 GM/dL (10.7-15.3); LYMPH % 14.1 % (8-40); MCH 31.1 pg (25.7-33.7); MCHC 33.6 g/dl (32.0-36.0); MEAN CELL VOLUME 92.6 fl (80-96); MEAN PLT VOLUME 7.3 fl (7.5-11.1); MONO % 13.4 % (3.8-10.2); NEUT % 67.5 % (42.8-82.8); PLATELET COUNT 301 10^3/uL (134-434); RBC 3.11 M/mm3 (3.60-5.2); RDW 15.9 % (11.6-15.6); WHITE BLOOD COUNT 8.3 K/mm3 (4.0-10.0)
== END 2023-04-10 18:06 | disposition home or self-care (01) ==
LOC: JONCBLOOD 08:05 → J7W 08:06 → JONCBLOOD 08:06 → J7W 08:17 → JONCBLOOD 18:06
PROVIDERS: ATTEND Internal Medicine Hematology & Oncology
PROC: 30233N1 Transfusion of Nonautologous Red Blood Cells into Peripheral Vein, Percutaneous Approach (ICD-10-PCS; principal; 2023-04-10)
DX: D46.9 Myelodysplastic syndrome, unspecified (principal)
CPT/HCPCS: 36415; 36430; 82962; 85025; 86850; 86900; 86901; 86922; P9058

== ENCOUNTER 2023-05-18 08:00 | Day surgery (SDC) | payer MEDICARE, OTHER ==
[2023-05-18] MEDS ORDERED: FUROSEMIDE 40 MG TABLET (FP) PO ONE (10:00)
[2023-05-18] MEDS ORDERED: EPOETIN ALFA-EPBX 40,000 UNIT/ML VIAL SQ ONE (11:00)
[2023-05-18 17:57] VITALS: BP 171/61; PULSE 81; RESP 20; TEMP 98.4
[2023-05-18 17:57] LABS: BASO % 1.2 % (0-2.0); EOS % 1.9 % (0-4.5); HEMATOCRIT 32.6 % (32.4-45.2); HEMOGLOBIN 10.9 GM/dL (10.7-15.3); LYMPH % 16.6 % (8-40); MCHC 33.3 g/dl (32.0-36.0); MEAN PLT VOLUME 7.6 fl (7.5-11.1); MONO % 13.7 % (3.8-10.2); NEUT % 66.6 % (42.8-82.8); PLATELET COUNT 254 10^3/uL (134-434); RBC 3.63 M/mm3 (3.60-5.2); RDW 16.4 % (11.6-15.6); WHITE BLOOD COUNT 8.7 K/mm3 (4.0-10.0)
== END 2023-05-18 17:55 | disposition home or self-care (01) ==
LOC: JONCBLOOD 08:00 → J7W 08:15 → JONCBLOOD 08:17 → J7W 08:17 → JONCBLOOD 17:55
PROVIDERS: ATTEND Internal Medicine Hematology & Oncology
PROC: 30233N1 Transfusion of Nonautologous Red Blood Cells into Peripheral Vein, Percutaneous Approach (ICD-10-PCS; principal; 2023-05-18)
DX: D46.9 Myelodysplastic syndrome, unspecified (principal)
CPT/HCPCS: 36415; 36430; 85025; 86850; 86900; 86901; 86922; P9058; Q5106

== ENCOUNTER 2023-07-27 13:39 | Emergency (ER) | payer MEDICARE, OTHER ==
[2023-07-27 14:59] VITALS: BP 157/80; PULSE 64; RESP 20; TEMP 99.4; BMI 30.2
[2023-07-27] MEDS: ACETAMINOPHEN 325 MG TABLET (FP) PO ONE (15:55)
[2023-07-27] MEDS ORDERED: ACETAMINOPHEN 325 MG TABLET (FP) ONE (15:58)
== END 2023-07-27 17:45 | disposition home or self-care (01) ==
LOC: FER 13:39
DX: R53.1 Weakness (principal); M25.562 Pain in left knee; M25.512 Pain in left shoulder
CPT/HCPCS: 73562-TC-LT-FY; 99283-25

== ENCOUNTER 2023-09-18 17:41 | Inpatient (IN) | payer MEDICARE, OTHER ==
[2023-09-18 19:09] LABS: BASO % 0.8 % (0-2.0); EOS % 1.4 % (0-4.5); HEMATOCRIT 22.2 % (32.4-45.2); LYMPH % 15.9 % (8-40); MCH 30.1 pg (25.7-33.7); MCHC 31.6 g/dl (32.0-36.0); MEAN CELL VOLUME 95.2 fl (80-96); MEAN PLT VOLUME 7.5 fl (7.5-11.1); MONO % 10.9 % (3.8-10.2); PLATELET COUNT 491 10^3/uL (134-434); RBC 2.33 M/mm3 (3.60-5.2); RDW 18.5 % (11.6-15.6); WHITE BLOOD COUNT 11.4 K/mm3 (4.0-10.0)
[2023-09-18] MEDS ORDERED: LACTATED RINGERS SOLUTION 1000 ML INFUS.BAG IV ONE (19:15)
[2023-09-18 19:30] LABS: POTASSIUM 5.6 mmol/L (3.5-5.1)
[2023-09-18 19:31] LABS: ACTIVATED PTT 30.3 SECONDS (25.2-36.5); INR 0.95 (0.83-1.09); PROTHROMBIN TIME (PATIENT) 10.7 SEC (9.7-13.0)
[2023-09-18 19:32] LABS: ALBUMIN 3.1 g/dl (3.4-5.0); BLOOD UREA NITROGEN 50.4 mg/dL (7-18); CALCIUM 10.4 mg/dL (8.5-10.1); MAGNESIUM 2.2 mg/dL (1.8-2.4)
[2023-09-18 19:36] LABS: CREATININE 1.7 mg/dL (0.55-1.3); PHOSPHOROUS 3.4 mg/dL (2.5-4.9)
[2023-09-18 19:37] LABS: BILIRUBIN,TOTAL 0.2 mg/dL (0.2-1); TOT PROT 6.4 g/dl (6.4-8.2)
[2023-09-18 19:41] LABS: N-TERMINAL BNP 642.8 pg/ml (5-450)
[2023-09-18] MEDS ORDERED: CALCIUM GLUCONATE 10% - 1,000 MG/10 ML VIAL ONE (20:09)
[2023-09-18] MEDS ORDERED: DEXTROSE 50%-WATER 25 GM/50 ML DISP.SYRIN ONE (20:09)
[2023-09-18] MEDS ORDERED: SODIUM ZIRCONIUM CYCLOSILICATE (LOKELMA) 10 GM PACKET ONE (20:09)
[2023-09-18] MEDS ORDERED: PANTOPRAZOLE SODIUM 40 MG VIAL ONE (20:10)
[2023-09-18] MEDS: SODIUM CHLORIDE 0.9% 500 ML INFUS.BAG IV ONE (20:30)
[2023-09-18] MEDS: PANTOPRAZOLE SODIUM 40 MG VIAL IVPUSH ONE (21:06)
[2023-09-18] MEDS: CALCIUM GLUCONATE 10% - 1,000 MG/10 ML VIAL IVPUSH ONE (21:06)
[2023-09-18] MEDS: SODIUM ZIRCONIUM CYCLOSILICATE (LOKELMA) 5 GM PACKET PO ONE (21:07)
[2023-09-18] MEDS: DEXTROSE 50%-WATER - 25 GM/50 ML VIAL IVPUSH ONE ×2 (21:07)
[2023-09-18] MEDS: INSULIN REGULAR HUMAN 100 UNITS/ML *VIAL IVPUSH ONE (21:07)
[2023-09-18 21:11] LABS: EPI CELLS 17 /uL (0-25.1); HYALINE CASTS 1 /uL (0-3.1); URINE APPEARANCE CLEAR; URINE BACTERIA 688 /uL (0-1359); URINE BILIRUBIN NEGATIVE (NEGATIVE); URINE COLOR YELLOW; URINE GLUCOSE (UA) TRACE (NEGATIVE); URINE KETONE NEGATIVE (NEGATIVE); URINE LEUK ESTERASE 1+ (NEGATIVE); URINE NITRITE NEGATIVE (NEGATIVE); URINE PROTEIN 1+ (NEGATIVE); URINE RBC 18 /uL (0-23.9); URINE UROBILINOGEN 0.2 mg/dL (0.2-1.0); URINE WBC 19 /uL (0-25.8)
[2023-09-19] MEDS: FUROSEMIDE 40 MG/4 ML INJECTABLE VIAL IVPUSH ONE (01:17)
[2023-09-19] MEDS: INSULIN ASPART SLIDING SCALE (NOVOLOG) 1 VIAL SQ SCH (06:33)
[2023-09-19 07:40] VITALS: BMI 30.4
[2023-09-19 07:59] LABS: HEMATOCRIT 31.4 % (32.4-45.2); HEMOGLOBIN 10.7 GM/dL (10.7-15.3); MCH 30.3 pg (25.7-33.7); MEAN CELL VOLUME 89.1 fl (80-96); MEAN PLT VOLUME 7.3 fl (7.5-11.1); PLATELET COUNT 455 10^3/uL (134-434); RBC 3.52 M/mm3 (3.60-5.2); RDW 18.5 % (11.6-15.6); WHITE BLOOD COUNT 11.9 K/mm3 (4.0-10.0)
[2023-09-19 08:23] LABS: POTASSIUM 4.8 mmol/L (3.5-5.1)
[2023-09-19 08:25] LABS: CALCIUM 10.8 mg/dL (8.5-10.1)
[2023-09-19 08:27] LABS: BLOOD UREA NITROGEN 45.4 mg/dL (7-18); MAGNESIUM 1.9 mg/dL (1.8-2.4)
[2023-09-19 08:29] LABS: CREATININE 1.7 mg/dL (0.55-1.3); PHOSPHOROUS 3.4 mg/dL (2.5-4.9)
[2023-09-19] MEDS: GABAPENTIN 100 MG CAPSULE PO SCH (09:37)
[2023-09-19] MEDS: amLODIPine BESYLATE 10 MG TABLET (FP) PO SCH (09:37)
[2023-09-19] MEDS: metoPROLOL SUCCINATE 25 MG TAB.SR.24H (FP) PO SCH (09:37)
[2023-09-19] MEDS: PANTOPRAZOLE 40 MG TABLET PO SCH (09:37)
[2023-09-19] MEDS: ATORVASTATIN CA 80 MG TABLET (FP) PO SCH (21:27)
[2023-09-19] MEDS: INSULIN (LEVEMIR) 100 UNITS/ML UNITS SQ SCH (21:27)
[2023-09-19 22:54] VITALS: RESP 18
[2023-09-20] MEDS: CEPHALEXIN MONOHYDRATE 500 MG CAPSULE (UD) PO SCH (09:10)
[2023-09-20 09:32] VITALS: BP 151/63; PULSE 78; TEMP 98.2
[2023-09-20] MEDS ORDERED: INSULIN (NOVOLOG) ASPART 100 UNITS/ML 10ML VIAL ONE (11:28)
== END 2023-09-20 13:33 | DRG 812 ==
LOC: JER 17:41 → JERBED 20:35 → OBSVTOIN 21:55 → J7W 22:15
PROVIDERS: ADMIT Internal Medicine; ATTEND Internal Medicine
PROC: 30233N1 Transfusion of Nonautologous Red Blood Cells into Peripheral Vein, Percutaneous Approach (ICD-10-PCS; principal; 2023-09-18)
DX: D46.9 Myelodysplastic syndrome, unspecified (principal); N39.0 Urinary tract infection, site not specified; D63.8 Anemia in other chronic diseases classified elsewhere; E11.42 Type 2 diabetes mellitus with diabetic polyneuropathy; I13.10 Hypertensive heart and chronic kidney disease without heart failure, with stage 1 through stage 4 chronic kidney disease, or unspecified chronic kidney disease; E11.22 Type 2 diabetes mellitus with diabetic chronic kidney disease; N18.30 Chronic kidney disease, stage 3 unspecified; E78.5 Hyperlipidemia, unspecified; G89.29 Other chronic pain; E83.52 Hypercalcemia; E87.5 Hyperkalemia; R07.89 Other chest pain; N28.1 Cyst of kidney, acquired; R91.8 Other nonspecific abnormal finding of lung field; B95.4 Other streptococcus as the cause of diseases classified elsewhere
CPT/HCPCS: 0241U-QW; 36415; 36430; 71045-TC-FY; 80048; 80053; 81003; 82272; 82550; 82962; 83735; 83880; 84100; 84443; 84484; 85025; 85027; 85610; 85730; 86850; 86900; 86901; 86922; 87086; 93005; 93010; 97161-GP; 99285-25; G0378; P9038; P9058

== ENCOUNTER 2023-11-07 02:55 | Observation (INO) | payer MEDICARE, OTHER ==
[2023-11-07 03:17] VITALS: BMI 35.2
[2023-11-07 04:08] LABS: BASO % 1.9 % (0-2.0); EOS % 2.6 % (0-4.5); HEMATOCRIT 22.6 % (32.4-45.2); HEMOGLOBIN 7.2 GM/dL (10.7-15.3); LYMPH % 17.9 % (8-40); MCH 30.2 pg (25.7-33.7); MCHC 31.7 g/dl (32.0-36.0); MEAN CELL VOLUME 95.3 fl (80-96); MEAN PLT VOLUME 7.3 fl (7.5-11.1); MONO % 14.8 % (3.8-10.2); NEUT % 62.8 % (42.8-82.8); PLATELET COUNT 396 10^3/uL (134-434); RBC 2.37 M/mm3 (3.60-5.2); RDW 19.7 % (11.6-15.6); WHITE BLOOD COUNT 7.1 K/mm3 (4.0-10.0)
[2023-11-07 04:29] LABS: POTASSIUM 5.3 mmol/L (3.5-5.1)
[2023-11-07 04:31] LABS: ALBUMIN 3.3 g/dl (3.4-5.0); CALCIUM 9.9 mg/dL (8.5-10.1); MAGNESIUM 2.3 mg/dL (1.8-2.4)
[2023-11-07 04:34] LABS: CREATININE 1.7 mg/dL (0.55-1.3); PHOSPHOROUS 3.9 mg/dL (2.5-4.9)
[2023-11-07 04:36] LABS: BILIRUBIN,TOTAL 0.3 mg/dL (0.2-1); TOT PROT 6.4 g/dl (6.4-8.2)
[2023-11-07 05:01] LABS: INR 0.88 (0.83-1.09)
[2023-11-07 05:04] LABS: ACTIVATED PTT 29.8 SECONDS (25.2-36.5)
[2023-11-07 08:32] LABS: RETICULOCYTES 4.83 % (0.5-1.5)
[2023-11-07] MEDS ORDERED: FUROSEMIDE 20 MG TABLET (FP) PO PRN (09:27)
[2023-11-07] MEDS: GABAPENTIN 100 MG CAPSULE PO SCH (11:32)
[2023-11-07] MEDS: FERROUS SO4 325 MG TABLET (FP) PO SCH (11:32)
[2023-11-07] MEDS: metoPROLOL SUCCINATE 25 MG TAB.SR.24H (FP) PO SCH (11:32)
[2023-11-07] MEDS: PANTOPRAZOLE 40 MG TABLET PO SCH (11:32)
[2023-11-07] MEDS: amLODIPine BESYLATE 10 MG TABLET (FP) PO SCH (11:32)
[2023-11-07] MEDS: INSULIN ASPART SLIDING SCALE (NOVOLOG) 1 VIAL SQ SCH (11:50)
[2023-11-07] MEDS: INSULIN (LEVEMIR) 100 UNITS/ML UNITS SQ SCH (22:35)
[2023-11-08 08:29] LABS: POTASSIUM 5.4 mmol/L (3.5-5.1)
[2023-11-08 08:36] LABS: BASO % 1.9 % (0-2.0); EOS % 2.8 % (0-4.5); HEMATOCRIT 22.5 % (32.4-45.2); HEMOGLOBIN 7.3 GM/dL (10.7-15.3); LYMPH % 14.8 % (8-40); MCH 30.1 pg (25.7-33.7); MCHC 32.5 g/dl (32.0-36.0); MEAN CELL VOLUME 92.5 fl (80-96); MEAN PLT VOLUME 7.7 fl (7.5-11.1); MONO % 13.8 % (3.8-10.2); NEUT % 66.7 % (42.8-82.8); PLATELET COUNT 326 10^3/uL (134-434); RBC 2.43 M/mm3 (3.60-5.2); RDW 20.2 % (11.6-15.6); WHITE BLOOD COUNT 7.2 K/mm3 (4.0-10.0)
[2023-11-08 08:45] LABS: ALBUMIN 2.8 g/dl (3.4-5.0); BLOOD UREA NITROGEN 46.7 mg/dL (7-18); CALCIUM 9.7 mg/dL (8.5-10.1)
[2023-11-08 08:48] LABS: CREATININE 1.6 mg/dL (0.55-1.3)
[2023-11-08 08:50] LABS: BILIRUBIN,TOTAL 0.5 mg/dL (0.2-1); TOT PROT 5.7 g/dl (6.4-8.2)
[2023-11-08] MEDS: FUROSEMIDE 20 MG TABLET (FP) PO SCH (11:15)
[2023-11-08] MEDS ORDERED: ALBUTEROL SO4 2.5/IPRATROPIUM 0.5 INH SOL 3 ML VIAL.NEB. NEB PRN (13:38)
[2023-11-08] MEDS: ACETAMINOPHEN 325 MG TABLET (FP) PO PRN (13:59)
[2023-11-08] MEDS: FUROSEMIDE 40 MG/4 ML INJECTABLE VIAL IVPUSH ONE (14:08)
[2023-11-08 20:40] LABS: PH,URINE 5.5 (5.0-8.0); URINE APPEARANCE CLEAR; URINE BILIRUBIN NEGATIVE (NEGATIVE); URINE COLOR YELLOW; URINE GLUCOSE (UA) NEGATIVE (NEGATIVE); URINE KETONE NEGATIVE (NEGATIVE); URINE LEUK ESTERASE NEGATIVE (NEGATIVE); URINE NITRITE NEGATIVE (NEGATIVE); URINE PROTEIN NEGATIVE (NEGATIVE); URINE UROBILINOGEN 0.2 mg/dL (0.2-1.0)
[2023-11-09] MEDS ORDERED: INSULIN ASPART SLIDING SCALE (NOVOLOG) 1 VIAL SQ ONE (06:21)
[2023-11-09 07:24] LABS: HEMATOCRIT 22.8 % (32.4-45.2); HEMOGLOBIN 7.5 GM/dL (10.7-15.3); MCH 30.3 pg (25.7-33.7); MCHC 33.1 g/dl (32.0-36.0); MEAN CELL VOLUME 91.8 fl (80-96); MEAN PLT VOLUME 7.6 fl (7.5-11.1); PLATELET COUNT 357 10^3/uL (134-434); RBC 2.49 M/mm3 (3.60-5.2); RDW 20.2 % (11.6-15.6); WHITE BLOOD COUNT 7.5 K/mm3 (4.0-10.0)
[2023-11-09 07:42] LABS: POTASSIUM 5.3 mmol/L (3.5-5.1)
[2023-11-09 07:45] LABS: CALCIUM 9.8 mg/dL (8.5-10.1)
[2023-11-09 07:46] LABS: BLOOD UREA NITROGEN 49.6 mg/dL (7-18)
[2023-11-09 07:49] LABS: CREATININE 1.9 mg/dL (0.55-1.3)
[2023-11-09 07:51] LABS: BILIRUBIN,TOTAL 0.3 mg/dL (0.2-1); TOT PROT 5.8 g/dl (6.4-8.2)
[2023-11-09] MEDS: SODIUM ZIRCONIUM CYCLOSILICATE (LOKELMA) 5 GM PACKET PO ONE (13:44)
[2023-11-09 15:30] LABS: HEMATOCRIT 28.3 % (32.4-45.2); HEMOGLOBIN 9.2 GM/dL (10.7-15.3); MCH 29.5 pg (25.7-33.7); MCHC 32.5 g/dl (32.0-36.0); MEAN CELL VOLUME 90.6 fl (80-96); MEAN PLT VOLUME 7.8 fl (7.5-11.1); PLATELET COUNT 354 10^3/uL (134-434); RBC 3.12 M/mm3 (3.60-5.2); RDW 20.1 % (11.6-15.6); WHITE BLOOD COUNT 8.8 K/mm3 (4.0-10.0)
[2023-11-10] MEDS: GABAPENTIN 100 MG CAPSULE PO SCH (21:45)
[2023-11-11 18:53] VITALS: BP 132/53; PULSE 66; RESP 20; TEMP 97.9
== END 2023-11-11 19:40 ==
LOC: JER 02:55 → JERBED 09:22 → J7W 11:06
PROVIDERS: ADMIT Internal Medicine; ATTEND Internal Medicine
PROC: 30233N1 Transfusion of Nonautologous Red Blood Cells into Peripheral Vein, Percutaneous Approach (ICD-10-PCS; principal; 2023-11-07)
PROC: 3E033GC Introduction of Other Therapeutic Substance into Peripheral Vein, Percutaneous Approach (ICD-10-PCS; 2023-11-07)
DX: D46.9 Myelodysplastic syndrome, unspecified (principal); E11.22 Type 2 diabetes mellitus with diabetic chronic kidney disease; I12.9 Hypertensive chronic kidney disease with stage 1 through stage 4 chronic kidney disease, or unspecified chronic kidney disease; N18.30 Chronic kidney disease, stage 3 unspecified; I69.354 Hemiplegia and hemiparesis following cerebral infarction affecting left non-dominant side; E78.5 Hyperlipidemia, unspecified; Z79.4 Long term (current) use of insulin; M19.90 Unspecified osteoarthritis, unspecified site; M47.812 Spondylosis without myelopathy or radiculopathy, cervical region; G62.9 Polyneuropathy, unspecified
CPT/HCPCS: 36415; 36430; 71045-TC-FY; 80053; 81003; 82272; 82962; 83735; 84100; 84484; 85025; 85027; 85045; 85610; 85730; 86850; 86900; 86901; 86922; 87086; 87186; 87635; 93005; 93010; 96372; 96374; 97162-GP; 99285-25; G0378; P9038; P9058

== ENCOUNTER 2023-12-31 01:35 | Inpatient (IN) | payer OTHER ==
[2023-12-31 01:48] VITALS: RESP 18; BMI 25.0
[2023-12-31 02:09] LABS: BASO % 1.2 % (0-2.0); EOS % 2.6 % (0-4.5); HEMATOCRIT 21.1 % (32.4-45.2); LYMPH % 13.4 % (8-40); MCHC 31.2 g/dl (32.0-36.0); MEAN CELL VOLUME 92.9 fl (80-96); MEAN PLT VOLUME 7.3 fl (7.5-11.1); MONO % 12.3 % (3.8-10.2); NEUT % 70.5 % (42.8-82.8); PLATELET COUNT 429 10^3/uL (134-434); RBC 2.27 M/mm3 (3.60-5.2); RDW 20.6 % (11.6-15.6); WHITE BLOOD COUNT 8.8 K/mm3 (4.0-10.0)
[2023-12-31 02:14] LABS: HEMOGLOBIN 6.6 GM/dL (10.7-15.3)
[2023-12-31 02:43] LABS: POTASSIUM 5.2 mmol/L (3.5-5.1)
[2023-12-31 02:45] LABS: ALBUMIN 2.8 g/dl (3.4-5.0); BLOOD UREA NITROGEN 50.1 mg/dL (7-18); CALCIUM 9.9 mg/dL (8.5-10.1)
[2023-12-31 02:48] LABS: CREATININE 1.7 mg/dL (0.55-1.3)
[2023-12-31 02:49] LABS: INR 0.94 (0.83-1.09); PROTHROMBIN TIME (PATIENT) 10.8 SEC (9.7-13.0)
[2023-12-31 02:50] LABS: BILIRUBIN,TOTAL 0.2 mg/dL (0.2-1); TOT PROT 5.6 g/dl (6.4-8.2)
[2023-12-31 02:52] LABS: ACTIVATED PTT 27.4 SECONDS (25.2-36.5)
[2023-12-31 05:13] LABS: ANISOCYTOSIS 2+; MACROCYTOSIS 2+; OVALOCYTE 1+
[2023-12-31] MEDS ORDERED: ACETAMINOPHEN 325 MG TABLET (FP) PO PRN (06:34)
[2023-12-31] MEDS ORDERED: DOCUSATE SODIUM 100 MG CAPSULE (FP) PO PRN (06:34)
[2023-12-31] MEDS ORDERED: ALBUTEROL SO4 0.083% IH SOL 2.5 MG/3 ML VIAL.NEB. NEB PRN (06:34)
[2023-12-31] MEDS ORDERED: PATIENT'S OWN MEDICATION (NON-FORMULARY) (Chlorpheniramine/Dextromethorp [Robitussin Long- PO SCH (06:45)
[2023-12-31] MEDS ORDERED: ALBUTEROL SO4 0.042% IH SOL 1.25 MG/3 ML VIAL.NEB NEB PRN (07:44)
[2023-12-31] MEDS ORDERED: guaiFENesin/D-METHORPHAN HB 10 ML UNIT-DOSE CUPS PO PRN (07:50)
[2023-12-31] MEDS: GABAPENTIN 100 MG CAPSULE PO SCH (07:51)
[2023-12-31] MEDS: INSULIN ASPART SLIDING SCALE (NOVOLOG) 1 VIAL SQ SCH (08:37)
[2023-12-31] MEDS ORDERED: MULTIVITAMINS (DAILY MVI) TABLET (FP) ONE (09:18)
[2023-12-31] MEDS ORDERED: amLODIPine BESYLATE 5 MG TABLET (FP) ONE (09:18)
[2023-12-31] MEDS ORDERED: metoPROLOL SUCCINATE 25 MG TAB.SR.24H (FP) PO ONE (09:18)
[2023-12-31] MEDS ORDERED: ASPIRIN 81 MG CHEWABLE TABLETS ONE (09:18)
[2023-12-31] MEDS: FERROUS SO4 325 MG TABLET (FP) PO SCH (09:32)
[2023-12-31] MEDS: IRON SUCROSE INJECTION 100 MG in SODIUM CHLORIDE 100 ML IVPB SCH (09:32)
[2023-12-31] MEDS: amLODIPine BESYLATE 5 MG TABLET (FP) PO SCH (09:32)
[2023-12-31] MEDS: ASPIRIN 81 MG CHEWABLE TABLETS PO SCH (09:32)
[2023-12-31] MEDS: metoPROLOL SUCCINATE 25 MG TAB.SR.24H (FP) PO SCH (09:32)
[2023-12-31] MEDS: MULTIVITAMINS (DAILY MVI) TABLET (FP) PO SCH (09:32)
[2023-12-31] MEDS: [UNRECOGNIZED DRUG - OTHER] IV SCH (09:53)
[2023-12-31] MEDS: IRON SUCROSE COMPLEX 100 MG/5 ML IV SCH (09:53)
[2023-12-31] MEDS ORDERED: ALLOPURINOL 100 MG TABLET (FP) PO SCH (10:00)
[2023-12-31] MEDS: ALLOPURINOL 100 MG TABLET (FP) PO SCH (12:17)
[2023-12-31 13:17] LABS: HEMATOCRIT 25.8 % (32.4-45.2); HEMOGLOBIN 8.5 GM/dL (10.7-15.3); MCHC 32.8 g/dl (32.0-36.0); MEAN CELL VOLUME 91.6 fl (80-96); MEAN PLT VOLUME 7.5 fl (7.5-11.1); PLATELET COUNT 393 10^3/uL (134-434); RBC 2.82 M/mm3 (3.60-5.2); RDW 17.6 % (11.6-15.6); WHITE BLOOD COUNT 9.7 K/mm3 (4.0-10.0)
[2023-12-31 13:36] LABS: CALCIUM 10.2 mg/dL (8.5-10.1)
[2023-12-31 13:37] LABS: BLOOD UREA NITROGEN 43.6 mg/dL (7-18); MAGNESIUM 2.2 mg/dL (1.8-2.4)
[2023-12-31 13:40] LABS: CREATININE 1.6 mg/dL (0.55-1.3)
[2023-12-31] MEDS: AZITHROMYCIN 500 MG TABLET PO SCH (14:11)
[2023-12-31] MEDS: INSULIN (LEVEMIR) 100 UNITS/ML UNITS SQ SCH (21:59)
[2023-12-31] MEDS: ATORVASTATIN CA 80 MG TABLET (FP) PO SCH (22:01)
[2024-01-01 09:08] LABS: BASO % 1.1 % (0-2.0); EOS % 3.1 % (0-4.5); HEMATOCRIT 23.4 % (32.4-45.2); HEMOGLOBIN 7.7 GM/dL (10.7-15.3); LYMPH % 10.5 % (8-40); MCH 30.4 pg (25.7-33.7); MCHC 33.1 g/dl (32.0-36.0); MEAN CELL VOLUME 92.1 fl (80-96); MEAN PLT VOLUME 7.7 fl (7.5-11.1); MONO % 11.4 % (3.8-10.2); NEUT % 73.9 % (42.8-82.8); PLATELET COUNT 362 10^3/uL (134-434); POTASSIUM 5.3 mmol/L (3.5-5.1); RBC 2.54 M/mm3 (3.60-5.2); RDW 18.4 % (11.6-15.6); WHITE BLOOD COUNT 8.5 K/mm3 (4.0-10.0)
[2024-01-01 09:11] LABS: CALCIUM 9.9 mg/dL (8.5-10.1)
[2024-01-01 09:12] LABS: BLOOD UREA NITROGEN 45.9 mg/dL (7-18)
[2024-01-01 09:15] LABS: CREATININE 1.6 mg/dL (0.55-1.3)
[2024-01-01 09:16] LABS: PHOSPHOROUS 3.2 mg/dL (2.5-4.9)
[2024-01-01] MEDS: SODIUM ZIRCONIUM CYCLOSILICATE (LOKELMA) 5 GM PACKET PO ONE (12:33)
[2024-01-01] MEDS: FUROSEMIDE 40 MG/4 ML INJECTABLE VIAL IVPUSH ONE ×2 (12:39→12:50)
[2024-01-01] MEDS ORDERED: IRON SUCROSE INJECTION 200 MG in SODIUM CHLORIDE 100 ML IVPB ONE (16:08)
[2024-01-01 16:44] LABS: HEMATOCRIT 28.8 % (32.4-45.2); HEMOGLOBIN 9.4 GM/dL (10.7-15.3); MCH 29.9 pg (25.7-33.7); MCHC 32.7 g/dl (32.0-36.0); MEAN CELL VOLUME 91.4 fl (80-96); MEAN PLT VOLUME 7.4 fl (7.5-11.1); PLATELET COUNT 361 10^3/uL (134-434); RBC 3.15 M/mm3 (3.60-5.2); RDW 16.9 % (11.6-15.6); WHITE BLOOD COUNT 10.2 K/mm3 (4.0-10.0)
[2024-01-01] MEDS: ACETAMINOPHEN 325 MG TABLET (FP) PO PRN (16:53)
[2024-01-01] MEDS: IRON SUCROSE INJECTION 200 MG in SODIUM CHLORIDE 100 ML IVPB ONE (18:02)
[2024-01-01 21:11] VITALS: BP 150/58; PULSE 70; TEMP 98.3
== END 2024-01-02 01:40 | DRG 812 ==
LOC: JER 01:35 → JERBED 03:34 → J6S 10:02 → OBSVTOIN 10:33
PROVIDERS: ADMIT Internal Medicine; ATTEND Nurse Practitioner
PROC: 30233N1 Transfusion of Nonautologous Red Blood Cells into Peripheral Vein, Percutaneous Approach (ICD-10-PCS; principal; 2023-12-31)
DX: D64.9 Anemia, unspecified (principal); I13.0 Hypertensive heart and chronic kidney disease with heart failure and stage 1 through stage 4 chronic kidney disease, or unspecified chronic kidney disease; I69.354 Hemiplegia and hemiparesis following cerebral infarction affecting left non-dominant side; N18.30 Chronic kidney disease, stage 3 unspecified; D46.9 Myelodysplastic syndrome, unspecified; E11.40 Type 2 diabetes mellitus with diabetic neuropathy, unspecified; J06.9 Acute upper respiratory infection, unspecified
CPT/HCPCS: 36415; 36430; 71045-TC-FY; 80048; 80053; 82728; 82962; 83036; 83540; 83550; 83735; 84100; 84466; 84484; 85025; 85027; 85610; 85730; 86850; 86900; 86901; 86922; 93005; 93010; 97162-GP; 99285-25; G0378; J1756; P9058

== ENCOUNTER 2024-02-03 18:52 | Inpatient (IN) | payer OTHER ==
[2024-02-03 20:20] LABS: BASO % 1.3 % (0-2.0); EOS % 2.4 % (0-4.5); HEMATOCRIT 24.3 % (32.4-45.2); HEMOGLOBIN 7.6 GM/dL (10.7-15.3); LYMPH % 10.5 % (8-40); MCHC 31.4 g/dl (32.0-36.0); MEAN CELL VOLUME 95.7 fl (80-96); MONO % 10.7 % (3.8-10.2); NEUT % 75.1 % (42.8-82.8); RBC 2.54 M/mm3 (3.60-5.2); RDW 18.8 % (11.6-15.6); WHITE BLOOD COUNT 11.4 K/mm3 (4.0-10.0)
[2024-02-03 20:27] LABS: INR 0.92 (0.83-1.09); PROTHROMBIN TIME (PATIENT) 10.4 SEC (9.7-13.0)
[2024-02-03 20:30] LABS: ACTIVATED PTT 18.7 SECONDS (25.2-36.5)
[2024-02-03 20:34] LABS: CHLORIDE 106 mmol/L (98-107); SODIUM 136 mmol/L (136-145)
[2024-02-03 20:37] LABS: BLOOD UREA NITROGEN 58.8 mg/dL (7-18); CO2 25 mmol/L (21-32); GLUCOSE,RANDOM 341 mg/dL (74-106)
[2024-02-03 20:40] LABS: CREATININE 1.8 mg/dL (0.55-1.3); SGOT/AST 36 U/L (15-37); SGPT/ALT 25 U/L (13-61)
[2024-02-03 20:42] LABS: BILIRUBIN,TOTAL 0.3 mg/dL (0.2-1); TOT PROT 6.1 g/dl (6.4-8.2)
[2024-02-03 20:43] LABS: ALK PHOS 130 U/L (45-117)
[2024-02-03 20:45] LABS: MEAN PLT VOLUME 9.5 fl (7.5-11.1); N-TERMINAL BNP 1743.5 pg/ml (5-450); PLATELET COUNT 314 10^3/uL (134-434)
[2024-02-03 20:46] LABS: ANION GAP 6 mmol/L (4-13); POTASSIUM 6.2 mmol/L (3.5-5.1)
[2024-02-03 21:48] LABS: POTASSIUM 5.6 mmol/L (3.5-5.1)
[2024-02-03 21:50] LABS: CALCIUM 9.9 mg/dL (8.5-10.1)
[2024-02-03 21:51] LABS: ALBUMIN 2.9 g/dl (3.4-5.0); BLOOD UREA NITROGEN 55.6 mg/dL (7-18)
[2024-02-03 21:54] LABS: CREATININE 1.9 mg/dL (0.55-1.3)
[2024-02-03 21:56] LABS: BILIRUBIN,TOTAL 0.3 mg/dL (0.2-1); TOT PROT 5.8 g/dl (6.4-8.2)
[2024-02-03 22:21] LABS: EPI CELLS 2 /uL (0-25.1); HYALINE CASTS 0 /uL (0-3.1); URINE APPEARANCE CLEAR; URINE BACTERIA >9,000 /uL (0-1359); URINE BILIRUBIN NEGATIVE (NEGATIVE); URINE COLOR YELLOW; URINE GLUCOSE (UA) TRACE (NEGATIVE); URINE KETONE NEGATIVE (NEGATIVE); URINE LEUK ESTERASE 2+ (NEGATIVE); URINE NITRITE NEGATIVE (NEGATIVE); URINE PROTEIN 2+ (NEGATIVE); URINE RBC 27 /uL (0-23.9); URINE UROBILINOGEN 0.2 mg/dL (0.2-1.0); URINE WBC 504 /uL (0-25.8)
[2024-02-03] MEDS ORDERED: ACETAMINOPHEN INJECTION 100 ML ONE (22:37)
[2024-02-03] MEDS: ACETAMINOPHEN 500 MG TABLET (FP) PO ONE (22:43)
[2024-02-03] MEDS ORDERED: LIDOCAINE 4% PATCH TP ONE (22:44)
[2024-02-03] MEDS: ACETAMINOPHEN 1000 MG/100 ML BAG IVPB ONE (22:44)
[2024-02-03] MEDS: SODIUM CHLORIDE 0.9% 500 ML INFUS.BAG IV ONE (22:52)
[2024-02-03] MEDS: LIDOCAINE PATCH REMOVAL MC SCH (22:53)
[2024-02-03] MEDS ORDERED: SODIUM ZIRCONIUM CYCLOSILICATE (LOKELMA) 10 GM PACKET ONE (23:26)
[2024-02-03] MEDS: SODIUM ZIRCONIUM CYCLOSILICATE (LOKELMA) 5 GM PACKET PO ONE (23:31)
[2024-02-03] MEDS ORDERED: MEROPENEM 1 GM VIAL (RESTRICTED TO ID) IVPB ONE (23:50)
[2024-02-04] MEDS: MEROPENEM 1 GM in DEXTROSE 5%-WATER 100 ML IVPB ONE (00:13)
[2024-02-04 01:24] LABS: IRON SERUM 62 ug/dL (50-175)
[2024-02-04 01:25] LABS: TOTAL IRON BINDING CAPACITY 238 ug/dL (250-450)
[2024-02-04] MEDS ORDERED: INSULIN REGULAR HUMAN 100 UNITS/ML *VIAL ONE (03:23)
[2024-02-04] MEDS ORDERED: CALCIUM GLUC IN NACL, ISO-OSM 1 GM/50 ML BAG IVPB ONE (03:23)
[2024-02-04] MEDS: INSULIN REGULAR HUMAN 100 UNITS/ML *VIAL SQ ONE (03:34)
[2024-02-04] MEDS: CALCIUM GLUCONATE IN NACL 1 GM/50 ML BAG IVPB ONE (03:34)
[2024-02-04] MEDS ORDERED: amLODIPine BESYLATE 5 MG TABLET (FP) ONE (03:48)
[2024-02-04] MEDS: amLODIPine BESYLATE 5 MG TABLET (FP) PO ONE (03:54)
[2024-02-04] MEDS ORDERED: HEPARIN NA (PORCINE) 5,000 UNITS/ML 1ML VIAL ONE ×3 (06:12→22:59)
[2024-02-04] MEDS: HEPARIN NA (PORCINE) 5,000 UNITS/ML 1ML VIAL SQ SCH (06:17)
[2024-02-04] MEDS: INSULIN ASPART SLIDING SCALE (NOVOLOG) 1 VIAL SQ SCH (07:40)
[2024-02-04 08:49] LABS: BASO % 1.2 % (0-2.0); EOS % 2.7 % (0-4.5); HEMATOCRIT 21.8 % (32.4-45.2); LYMPH % 11.2 % (8-40); MCH 29.9 pg (25.7-33.7); MCHC 30.9 g/dl (32.0-36.0); MEAN CELL VOLUME 96.8 fl (80-96); MEAN PLT VOLUME 8.1 fl (7.5-11.1); MONO % 12.5 % (3.8-10.2); NEUT % 72.4 % (42.8-82.8); PLATELET COUNT 316 10^3/uL (134-434); RBC 2.25 M/mm3 (3.60-5.2); RDW 18.3 % (11.6-15.6); WHITE BLOOD COUNT 9.4 K/mm3 (4.0-10.0)
[2024-02-04 08:57] LABS: HEMOGLOBIN 6.7 GM/dL (10.7-15.3)
[2024-02-04 09:14] LABS: ALBUMIN 2.8 g/dl (3.4-5.0); BLOOD UREA NITROGEN 60.4 mg/dL (7-18)
[2024-02-04 09:17] LABS: CREATININE 1.9 mg/dL (0.55-1.3)
[2024-02-04 09:18] LABS: BILIRUBIN,TOTAL 0.4 mg/dL (0.2-1)
[2024-02-04 09:19] LABS: TOT PROT 5.6 g/dl (6.4-8.2)
[2024-02-04] MEDS ORDERED: ENOXAPARIN NA (PORCINE) 40 MG/0.4 ML DISP.SYRIN SQ SCH (10:00)
[2024-02-04] MEDS ORDERED: ASPIRIN COATED 81 MG TABLET.EC ONE (11:53)
[2024-02-04] MEDS ORDERED: LIDOCAINE 4% PATCH TP ONE (11:54)
[2024-02-04] MEDS ORDERED: MEROPENEM 1 GM VIAL (RESTRICTED TO ID) IVPB ONE ×2 (11:54→23:13)
[2024-02-04] MEDS ORDERED: FERROUS SO4 325 MG TABLET (FP) ONE (11:54)
[2024-02-04] MEDS ORDERED: metoPROLOL SUCCINATE 25 MG TAB.SR.24H (FP) PO ONE (11:54)
[2024-02-04] MEDS: ASPIRIN COATED 81 MG TABLET.EC PO SCH (12:24)
[2024-02-04] MEDS: LIDOCAINE 4% PATCH TP SCH (12:24)
[2024-02-04] MEDS: metoPROLOL SUCCINATE 25 MG TAB.SR.24H (FP) PO SCH (12:25)
[2024-02-04] MEDS: ALLOPURINOL 100 MG TABLET (FP) PO SCH (12:25)
[2024-02-04] MEDS: FERROUS SO4 325 MG TABLET (FP) PO SCH (12:25)
[2024-02-04] MEDS: MEROPENEM 1 GM in DEXTROSE 5%-WATER 100 ML IVPB SCH ×3 (12:25→23:21)
[2024-02-04] MEDS ORDERED: INSULIN ASPART SLIDING SCALE (NOVOLOG) 1 VIAL SQ ONE ×2 (12:36→17:49)
[2024-02-04] MEDS ORDERED: ATORVASTATIN CA 80 MG TABLET (FP) ONE (22:59)
[2024-02-04] MEDS: INSULIN (LEVEMIR) 100 UNITS/ML UNITS SQ SCH (23:00)
[2024-02-04] MEDS: ATORVASTATIN CA 80 MG TABLET (FP) PO SCH (23:00)
[2024-02-04] MEDS ORDERED: INSULIN (LEVEMIR) 100 UNITS/ML UNITS SQ ONE (23:00)
[2024-02-04] MEDS ORDERED: DEXTROSE 5%-WATER 100 ML IVPB ONE (23:13)
[2024-02-05 06:30] VITALS: RESP 18
[2024-02-05 09:38] LABS: BASO % 1.3 % (0-2.0); EOS % 3.6 % (0-4.5); HEMATOCRIT 26.5 % (32.4-45.2); HEMOGLOBIN 8.6 GM/dL (10.7-15.3); LYMPH % 8.9 % (8-40); MCHC 32.3 g/dl (32.0-36.0); MEAN PLT VOLUME 8.1 fl (7.5-11.1); MONO % 9.1 % (3.8-10.2); NEUT % 77.1 % (42.8-82.8); PLATELET COUNT 296 10^3/uL (134-434); RBC 2.85 M/mm3 (3.60-5.2); RDW 19.2 % (11.6-15.6); RETICULOCYTES 3.14 % (0.5-1.5); WHITE BLOOD COUNT 10.4 K/mm3 (4.0-10.0)
[2024-02-05 09:56] LABS: POTASSIUM 4.8 mmol/L (3.5-5.1)
[2024-02-05 09:58] LABS: ALBUMIN 2.8 g/dl (3.4-5.0); BLOOD UREA NITROGEN 54.6 mg/dL (7-18); CALCIUM 10.6 mg/dL (8.5-10.1); MAGNESIUM 1.9 mg/dL (1.8-2.4)
[2024-02-05 10:01] LABS: CREATININE 1.7 mg/dL (0.55-1.3); PHOSPHOROUS 2.9 mg/dL (2.5-4.9)
[2024-02-05 10:03] LABS: BILIRUBIN,TOTAL 0.6 mg/dL (0.2-1); TOT PROT 5.7 g/dl (6.4-8.2)
[2024-02-06] MEDS: ACETAMINOPHEN 500 MG TABLET (FP) PO ONE (03:14)
[2024-02-06 12:14] LABS: BASO % 1.2 % (0-2.0); EOS % 2.5 % (0-4.5); HEMATOCRIT 28.1 % (32.4-45.2); HEMOGLOBIN 8.8 GM/dL (10.7-15.3); LYMPH % 10.8 % (8-40); MCH 29.7 pg (25.7-33.7); MCHC 31.3 g/dl (32.0-36.0); MEAN CELL VOLUME 95.1 fl (80-96); MEAN PLT VOLUME 8.5 fl (7.5-11.1); NEUT % 75.5 % (42.8-82.8); PLATELET COUNT 121 10^3/uL (134-434); RBC 2.96 M/mm3 (3.60-5.2); RDW 19.9 % (11.6-15.6); WHITE BLOOD COUNT 8.3 K/mm3 (4.0-10.0)
[2024-02-06 12:45] LABS: POTASSIUM 4.9 mmol/L (3.5-5.1)
[2024-02-06 12:46] LABS: ALBUMIN 2.7 g/dl (3.4-5.0); BLOOD UREA NITROGEN 47.3 mg/dL (7-18); CALCIUM 10.3 mg/dL (8.5-10.1)
[2024-02-06 12:52] LABS: BILIRUBIN,TOTAL 0.5 mg/dL (0.2-1); CREATININE 1.5 mg/dL (0.55-1.3); TOT PROT 5.6 g/dl (6.4-8.2)
[2024-02-07 09:14] LABS: BASO % 1.5 % (0-2.0); EOS % 2.8 % (0-4.5); HEMATOCRIT 29.3 % (32.4-45.2); HEMOGLOBIN 9.4 GM/dL (10.7-15.3); MCHC 32.1 g/dl (32.0-36.0); MEAN CELL VOLUME 93.5 fl (80-96); MEAN PLT VOLUME 7.7 fl (7.5-11.1); MONO % 9.1 % (3.8-10.2); NEUT % 74.6 % (42.8-82.8); PLATELET COUNT 320 10^3/uL (134-434); RBC 3.14 M/mm3 (3.60-5.2); RDW 19.8 % (11.6-15.6); WHITE BLOOD COUNT 9.4 K/mm3 (4.0-10.0)
[2024-02-07 09:40] LABS: POTASSIUM 4.7 mmol/L (3.5-5.1)
[2024-02-07 09:56] LABS: ALBUMIN 2.9 g/dl (3.4-5.0); CALCIUM 10.5 mg/dL (8.5-10.1)
[2024-02-07 09:57] LABS: BLOOD UREA NITROGEN 42.7 mg/dL (7-18)
[2024-02-07 10:00] LABS: CREATININE 1.5 mg/dL (0.55-1.3)
[2024-02-07 10:01] LABS: BILIRUBIN,TOTAL 0.6 mg/dL (0.2-1); TOT PROT 6.1 g/dl (6.4-8.2)
[2024-02-07 10:43] VITALS: BMI 25.3
[2024-02-07] MEDS: amLODIPine BESYLATE 5 MG TABLET (FP) PO SCH (15:18)
[2024-02-07] MEDS: AMOX TR/POT CLAV 500MG/125MG TABLETS (FP) PO SCH (17:43)
[2024-02-08] MEDS: ACETAMINOPHEN 1000 MG/100 ML BAG IVPB ONE (03:12)
[2024-02-08 15:23] VITALS: BP 154/65; PULSE 82; TEMP 97.7
[2024-02-08] MEDS ORDERED: ACETAMINOPHEN 325 MG TABLET (FP) PO PRN (18:09)
== END 2024-02-08 20:53 | DRG 812 ==
LOC: JER 18:52 → JERBED 02-04 00:58 → J8W 02-04 23:51
PROVIDERS: ADMIT Student in an Organized Health Care Education/Training Program; ATTEND Nurse Practitioner Family
PROC: 30233N1 Transfusion of Nonautologous Red Blood Cells into Peripheral Vein, Percutaneous Approach (ICD-10-PCS; principal; 2024-02-04)
DX: D46.9 Myelodysplastic syndrome, unspecified (principal); I13.0 Hypertensive heart and chronic kidney disease with heart failure and stage 1 through stage 4 chronic kidney disease, or unspecified chronic kidney disease; I50.22 Chronic systolic (congestive) heart failure; N18.4 Chronic kidney disease, stage 4 (severe); N39.0 Urinary tract infection, site not specified; I69.354 Hemiplegia and hemiparesis following cerebral infarction affecting left non-dominant side; D63.1 Anemia in chronic kidney disease; E78.5 Hyperlipidemia, unspecified; E11.22 Type 2 diabetes mellitus with diabetic chronic kidney disease; E11.65 Type 2 diabetes mellitus with hyperglycemia; E87.5 Hyperkalemia; E11.42 Type 2 diabetes mellitus with diabetic polyneuropathy; M10.9 Gout, unspecified; N28.89 Other specified disorders of kidney and ureter; R91.8 Other nonspecific abnormal finding of lung field; B96.4 Proteus (mirabilis) (morganii) as the cause of diseases classified elsewhere
CPT/HCPCS: 0241U-QW; 36415; 36430; 71045-TC-FY; 80053; 81003; 82728; 82962; 83010; 83540; 83550; 83615; 83735; 83880; 84100; 84484; 85025; 85045; 85610; 85730; 86850; 86900; 86901; 86922; 87086; 87186; 93005; 93010; 97116-GP; 97161-GP; 99285-25; J0131; J1644; P9038; P9058

== ENCOUNTER 2024-03-19 09:09 | Emergency (ER) | payer OTHER ==
[2024-03-19 10:03] VITALS: BMI 25.3
[2024-03-19 10:56] LABS: BASO % 1.5 % (0-2.0); EOS % 1.6 % (0-4.5); HEMATOCRIT 23.7 % (32.4-45.2); HEMOGLOBIN 7.6 GM/dL (10.7-15.3); LYMPH % 11.6 % (8-40); MCH 30.6 pg (25.7-33.7); MCHC 31.9 g/dl (32.0-36.0); MEAN CELL VOLUME 96.1 fl (80-96); MEAN PLT VOLUME 8.3 fl (7.5-11.1); MONO % 8.8 % (3.8-10.2); NEUT % 76.5 % (42.8-82.8); PLATELET COUNT 451 10^3/uL (134-434); RBC 2.47 M/mm3 (3.60-5.2); RDW 19.4 % (11.6-15.6); WHITE BLOOD COUNT 7.9 K/mm3 (4.0-10.0)
[2024-03-19 10:57] LABS: PROTHROMBIN TIME (PATIENT) 11.3 SEC (9.7-13.0)
[2024-03-19 11:00] LABS: ACTIVATED PTT 30.5 SECONDS (25.2-36.5)
[2024-03-19 11:50] LABS: POTASSIUM 5.7 mmol/L (3.5-5.1)
[2024-03-19 11:52] LABS: ALBUMIN 2.9 g/dl (3.4-5.0); BLOOD UREA NITROGEN 36.4 mg/dL (7-18); CALCIUM 10.3 mg/dL (8.5-10.1)
[2024-03-19 11:56] LABS: CREATININE 1.7 mg/dL (0.55-1.3)
[2024-03-19 11:57] LABS: BILIRUBIN,TOTAL 0.4 mg/dL (0.2-1); TOT PROT 6.4 g/dl (6.4-8.2)
[2024-03-19 13:34] VITALS: BP 151/75; PULSE 82; RESP 17
[2024-03-19 13:36] VITALS: TEMP 98.1
[2024-03-19 17:31] LABS: POTASSIUM 4.7 mmol/L (3.5-5.1)
[2024-03-19 17:32] LABS: CALCIUM 9.6 mg/dL (8.5-10.1)
[2024-03-19 17:33] LABS: BLOOD UREA NITROGEN 35.2 mg/dL (7-18)
[2024-03-19 17:36] LABS: CREATININE 1.7 mg/dL (0.55-1.3)
== END 2024-03-19 23:08 | disposition home or self-care (01) ==
LOC: JER 09:09
DX: D64.9 Anemia, unspecified (principal); R53.1 Weakness; R05.9 Cough, unspecified; R09.81 Nasal congestion; J02.9 Acute pharyngitis, unspecified; R42 Dizziness and giddiness; R53.83 Other fatigue
CPT/HCPCS: 36415; 36430; 80048; 80053; 85025; 85610; 85730; 86850; 86900; 86901; 86922; 93005; 93010; 99285-25; P9058

== ENCOUNTER 2024-07-05 02:52 | Observation (INO) | payer OTHER ==
[2024-07-05 03:04] VITALS: BMI 23.6
[2024-07-05 03:57] LABS: EOS % 1.8 % (0-4.5); HEMATOCRIT 18.8 % (32.4-45.2); LYMPH % 10.8 % (8-40); MCH 29.2 pg (25.7-33.7); MCHC 31.2 g/dl (32.0-36.0); MEAN CELL VOLUME 93.5 fl (80-96); MEAN PLT VOLUME 7.5 fl (7.5-11.1); MONO % 11.4 % (3.8-10.2); PLATELET COUNT 450 10^3/uL (134-434); RBC 2.01 M/mm3 (3.60-5.2); RDW 20.2 % (11.6-15.6); WHITE BLOOD COUNT 9.7 K/mm3 (4.0-10.0)
[2024-07-05 04:13] LABS: HEMOGLOBIN 5.9 GM/dL (10.7-15.3)
[2024-07-05 04:18] LABS: INR 0.97 (0.83-1.09); PROTHROMBIN TIME (PATIENT) 10.6 SEC (9.7-13.0)
[2024-07-05 04:18] LABS: POTASSIUM 4.7 mmol/L (3.5-5.1)
[2024-07-05 04:20] LABS: BLOOD UREA NITROGEN 73.7 mg/dL (7-18); CALCIUM 10.1 mg/dL (8.5-10.1)
[2024-07-05 04:20] LABS: ACTIVATED PTT 26.5 SECONDS (25.2-36.5)
[2024-07-05 04:23] LABS: CREATININE 2.1 mg/dL (0.55-1.3)
[2024-07-05 04:25] LABS: BILIRUBIN,TOTAL 0.3 mg/dL (0.2-1)
[2024-07-05] MEDS ORDERED: SODIUM CHLORIDE 1,000 ML IV SCH (06:30)
[2024-07-05] MEDS ORDERED: DOCUSATE SODIUM 100 MG CAPSULE (FP) PO PRN (06:33)
[2024-07-05] MEDS: INSULIN ASPART SLIDING SCALE (NOVOLOG) 1 VIAL SQ SCH (07:30)
[2024-07-05] MEDS ORDERED: INSULIN ASPART SLIDING SCALE (NOVOLOG) 1 VIAL SQ ONE (08:25)
[2024-07-05] MEDS: metoPROLOL SUCCINATE 25 MG TAB.SR.24H (FP) PO SCH (10:30)
[2024-07-05] MEDS: FUROSEMIDE 40 MG TABLET (FP) PO SCH (10:30)
[2024-07-05] MEDS: ASPIRIN COATED 81 MG TABLET.EC PO SCH (10:30)
[2024-07-05] MEDS: amLODIPine BESYLATE 5 MG TABLET (FP) PO SCH (10:30)
[2024-07-05] MEDS: FERROUS SO4 325 MG TABLET (FP) PO SCH (10:30)
[2024-07-05] MEDS ORDERED: amLODIPine BESYLATE 5 MG TABLET (FP) ONE (10:56)
[2024-07-05] MEDS ORDERED: FUROSEMIDE 40 MG TABLET (FP) ONE (10:56)
[2024-07-05] MEDS ORDERED: ASPIRIN COATED 81 MG TABLET.EC ONE (10:56)
[2024-07-05] MEDS ORDERED: FERROUS SO4 325 MG TABLET (FP) ONE (10:57)
[2024-07-05] MEDS ORDERED: metoPROLOL SUCCINATE 25 MG TAB.SR.24H (FP) PO ONE (10:57)
[2024-07-05] MEDS ORDERED: ACETAMINOPHEN 325 MG TABLET (FP) PO PRN (11:13)
[2024-07-05 13:32] LABS: BASO % 0.8 % (0-2.0); EOS % 1.1 % (0-4.5); HEMATOCRIT 27.5 % (32.4-45.2); HEMOGLOBIN 8.8 GM/dL (10.7-15.3); LYMPH % 7.4 % (8-40); MCH 28.3 pg (25.7-33.7); MCHC 32.2 g/dl (32.0-36.0); MEAN CELL VOLUME 87.7 fl (80-96); MEAN PLT VOLUME 7.9 fl (7.5-11.1); MONO % 10.1 % (3.8-10.2); NEUT % 80.6 % (42.8-82.8); PLATELET COUNT 404 10^3/uL (134-434); RBC 3.13 M/mm3 (3.60-5.2); RDW 20.3 % (11.6-15.6); WHITE BLOOD COUNT 9.1 K/mm3 (4.0-10.0)
[2024-07-05 13:53] LABS: POTASSIUM 4.6 mmol/L (3.5-5.1)
[2024-07-05 13:55] LABS: BLOOD UREA NITROGEN 69.7 mg/dL (7-18); CALCIUM 9.7 mg/dL (8.5-10.1)
[2024-07-05 13:56] LABS: ALBUMIN 2.9 g/dl (3.4-5.0); MAGNESIUM 2.1 mg/dL (1.8-2.4)
[2024-07-05 13:59] LABS: PHOSPHOROUS 3.9 mg/dL (2.5-4.9)
[2024-07-05 14:00] LABS: BILIRUBIN,TOTAL 0.7 mg/dL (0.2-1); TOT PROT 5.8 g/dl (6.4-8.2)
[2024-07-05] MEDS ORDERED: HEPARIN NA (PORCINE) 5,000 UNITS/ML 1ML VIAL ONE (14:15)
[2024-07-05] MEDS: HEPARIN NA (PORCINE) 5,000 UNITS/ML 1ML VIAL SQ SCH (14:26)
[2024-07-05] MEDS ORDERED: ATORVASTATIN CA 80 MG TABLET (FP) PO SCH (22:00)
[2024-07-05 22:05] VITALS: BP 154/65; PULSE 70; RESP 18; TEMP 98.1
== END 2024-07-05 22:10 ==
LOC: JER 02:52 → JERBED 06:03
PROVIDERS: ADMIT Student in an Organized Health Care Education/Training Program; ATTEND Physician Assistant
PROC: 30233N1 Transfusion of Nonautologous Red Blood Cells into Peripheral Vein, Percutaneous Approach (ICD-10-PCS; principal; 2024-07-05)
PROC: 3E023GC Introduction of Other Therapeutic Substance into Muscle, Percutaneous Approach (ICD-10-PCS; 2024-07-05)
PROC: 3E013VG Introduction of Insulin into Subcutaneous Tissue, Percutaneous Approach (ICD-10-PCS; 2024-07-05)
PROC: 3E0337Z Introduction of Electrolytic and Water Balance Substance into Peripheral Vein, Percutaneous Approach (ICD-10-PCS; 2024-07-05)
DX: R71.0 Precipitous drop in hematocrit (principal); D46.9 Myelodysplastic syndrome, unspecified; E11.22 Type 2 diabetes mellitus with diabetic chronic kidney disease; I12.9 Hypertensive chronic kidney disease with stage 1 through stage 4 chronic kidney disease, or unspecified chronic kidney disease; N18.4 Chronic kidney disease, stage 4 (severe); E78.00 Pure hypercholesterolemia, unspecified; K92.9 Disease of digestive system, unspecified; I51.9 Heart disease, unspecified; Z79.4 Long term (current) use of insulin; N17.9 Acute kidney failure, unspecified
CPT/HCPCS: 36415; 36430; 71045-TC-FY; 80053; 82962; 83036; 83735; 84100; 84484; 85025; 85610; 85730; 86850; 86900; 86901; 86922; 93005; 93010; 96372; 99285-25; G0378; J1644; P9058

== ENCOUNTER 2024-10-11 13:38 | Emergency (ER) | payer OTHER ==
[2024-10-11 14:08] VITALS: BMI 23.6
[2024-10-11 14:50] LABS: ABSOLUTE IMMATURE GRANULOCYTES 0.11 x10^3/uL (0.0-0.031); BASOPHILS # 0.11 x10^3/uL (0.01-0.08); EOSINOPHIL % 1.4 % (0.7-5.8); EOSINOPHILS # 0.14 x10^3/uL (0.04-0.36); HEMATOCRIT 25.5 % (34.1-44.9); HEMOGLOBIN 7.7 g/dL (11.2-15.7); MCHC 30.2 g/dl (32.2-35.5); MEAN CELL VOLUME 98.5 fl (79.4-94.8); MEAN PLT VOLUME 10.3 fl (9.4-12.3); MONOCYTE # 1.12 x10^3/uL (0.24-0.86); MONOCYTE % 11.6 % (4.7-12.5); PLATELET COUNT 454 x10^3/uL (182-369); RDW 17.7 % (12.5-17.0)
[2024-10-11 14:59] LABS: INR 1.06 (0.83-1.09); PROTHROMBIN TIME (PATIENT) 11.7 SEC (9.7-13.0)
[2024-10-11 15:12] LABS: POTASSIUM 4.4 mmol/L (3.5-5.1)
[2024-10-11 15:14] LABS: ALBUMIN 2.8 g/dl (3.4-5.0); BLOOD UREA NITROGEN 54.4 mg/dL (7-18); CALCIUM 10.8 mg/dL (8.5-10.1)
[2024-10-11 15:15] LABS: MAGNESIUM 1.8 mg/dL (1.8-2.4)
[2024-10-11 15:18] LABS: CREATININE 2.1 mg/dL (0.55-1.3); PHOSPHOROUS 3.6 mg/dL (2.5-4.9)
[2024-10-11 15:19] LABS: BILIRUBIN,TOTAL 0.2 mg/dL (0.2-1); TOT PROT 6.4 g/dl (6.4-8.2)
[2024-10-11 18:11] VITALS: RESP 18; TEMP 98.7
[2024-10-11 19:40] LABS: HEMOGLOBIN 9.6 g/dL (11.2-15.7); MEAN CELL VOLUME 95.2 fl (79.4-94.8); MEAN PLT VOLUME 10.1 fl (9.4-12.3); PLATELET COUNT 431 x10^3/uL (182-369); RDW 17.7 % (12.5-17.0)
[2024-10-11 20:16] VITALS: BP 158/78; PULSE 73
[2024-10-11] MEDS ORDERED: FUROSEMIDE 40 MG/4 ML INJECTABLE VIAL ONE (20:19)
[2024-10-11] MEDS: FUROSEMIDE 40 MG/4 ML INJECTABLE VIAL IVPUSH ONE (20:24)
== END 2024-10-11 23:21 | disposition home or self-care (01) ==
LOC: JER 13:38
PROC: 3E033GC Introduction of Other Therapeutic Substance into Peripheral Vein, Percutaneous Approach (ICD-10-PCS; principal; 2024-10-11)
DX: I13.0 Hypertensive heart and chronic kidney disease with heart failure and stage 1 through stage 4 chronic kidney disease, or unspecified chronic kidney disease (principal); I50.9 Heart failure, unspecified; E11.22 Type 2 diabetes mellitus with diabetic chronic kidney disease; N18.9 Chronic kidney disease, unspecified; D63.1 Anemia in chronic kidney disease; D46.9 Myelodysplastic syndrome, unspecified
CPT/HCPCS: 36415; 36430; 71045-TC-FY; 80053; 83735; 84100; 84484; 85025; 85027; 85610; 85730; 86850; 86900; 86901; 86922; 93005; 93010; 99291; P9058